=== PATIENT | female | born 1940 | race Caucasian/White ===

== ENCOUNTER → 2017-05-10 15:07 | Outpatient (CLI) | payer MEDICARE, OTHER, SELFPAY ==
[2017-05-10 17:50] LABS: Absolute Lymphocyte Count 2.45 X10^3/ul (0.83-4.51); Absolute Neutrophil Count 4.2 X10^3/uL (2.0-7.7); Basophil# 0.05 X10^3/uL; Basophil% 0.7 % (0-1); Eosinophils% 2.7 % (0-5); Hematocrit 36.1 % (37-47); Hemoglobin 11.8 g/dl (12.0-15.0); Lymphocyte # 2.45 X10^3/ul (4.0); Lymphocyte % 32.5 % (19-41); Mean Corp Hgb Conc 32.7 g/gl (32-36); Mean Corpuscular Hgb 29.5 pg (27.0-32.0); Mean Corpuscular Volume 90.3 fL (81-99); Mean Platelet Vol. 11.6 fl (6.2-12.0); Monocyte# 0.62 X10^3/uL; Monocyte% 8.2 % (0-10); Neutrophil % 55.6 % (47-70); Platelet Count 222 K/mm3 (150-450); RBC Distribution Width CV 15.7 % (11.6-14.6); RBC Distribution Width SD 51.4 fl (35.1-43.9); White Blood Count 7.5 K/mm3 (4.4-11.0)
[2017-05-10 17:54] LABS: POSITIVE COUNT NO; POSITIVE DIFFERENTIAL NO; POSITIVE MORPHOLOGY NO
[2017-05-10 17:56] LABS: ALB/GLOB Ratio 0.9 RATIO (0.9-2.4); AST(SGOT) 15 U/L (15-37); Alanine Aminotransfer ALT/SGPT 23 U/L (13-56); Albumin, Serum 3.5 g/dL (3.2-5.0); Alkaline Phosphatase 65 U/L (45-117); Anion Gap 5 (5-15); BUN 22 mg/dL (7-18); BUN/Creat Ratio 22.4 RATIO (10-20); Calcium,Total 8.6 mg/dL (8.5-10.1); Chloride 106 mmol/L (98-107); Creatinine, Serum 0.98 mg/dL (0.55-1.02); EST Glomerular Filtration Rate 59 mL/min (>60); Est Glom Filt Rate - Afr Amer 71 mL/min (>60); Globulin 3.8 g/dL (2.2-4.2); Glucose 173 mg/dL (74-106); Potassium 4.4 mmol/L (3.5-5.1); Protein, Total 7.3 g/dL (6.4-8.2); Sodium Level 141 mmol/L (136-145)
[2017-05-14 12:07] LABS: SJOGREN'S Anti-SS-A test < 0.2 AI (0.0-0.9); SJOGREN'S Anti-SS-B test < 0.2 AI (0.0-0.9)
[2017-05-14 13:50] LABS: ANTINUCLEAR ANTIBODIES DIRECT Negative (Negative)
== END ==
PROVIDERS: Family Provider Family Medicine; PCP Family Medicine; Visit Provider Internal Medicine Rheumatology
DX: M06.4 Inflammatory polyarthropathy (principal); M79.7 Fibromyalgia; M18.0 Bilateral primary osteoarthritis of first carpometacarpal joints; M17.0 Bilateral primary osteoarthritis of knee; M81.0 Age-related osteoporosis without current pathological fracture; I10 Essential (primary) hypertension; E11.9 Type 2 diabetes mellitus without complications; F32.89 Other specified depressive episodes; Z79.899 Other long term (current) drug therapy
CPT/HCPCS: 36415; 80053; 85025; 86038; 86235

== ENCOUNTER → 2017-07-11 11:56 | Outpatient (CLI) | payer MEDICARE, OTHER, SELFPAY | PROVIDERS: Visit Provider Obstetrics & Gynecology | DX: N39.0 Urinary tract infection, site not specified (principal) | CPT/HCPCS: 87086; 87088 ==

== ENCOUNTER → 2017-07-17 10:38 | Outpatient (CLI) | payer MEDICARE, OTHER, SELFPAY | PROVIDERS: Visit Provider Obstetrics & Gynecology | DX: R30.0 Dysuria (principal) | CPT/HCPCS: 87086; 87088 ==

== ENCOUNTER → 2017-08-10 10:10 | Outpatient (CLI) | payer MEDICARE, OTHER, SELFPAY ==
[2017-08-10 12:35] LABS: Absolute Lymphocyte Count 2.45 X10^3/ul (0.83-4.51); Absolute Neutrophil Count 5.8 X10^3/uL (2.0-7.7); Basophil# 0.05 X10^3/uL; Basophil% 0.5 % (0-1); Eosinophil# 0.24 X10^3/uL; Eosinophils% 2.6 % (0-5); Hematocrit 37.4 % (37-47); Hemoglobin 12.1 g/dl (12.0-15.0); Lymphocyte # 2.45 X10^3/ul (4.0); Lymphocyte % 26.5 % (19-41); Mean Corp Hgb Conc 32.4 g/gl (32-36); Mean Corpuscular Hgb 28.5 pg (27.0-32.0); Mean Corpuscular Volume 88.2 fL (81-99); Mean Platelet Vol. 10.6 fl (6.2-12.0); Monocyte# 0.74 X10^3/uL; Neutrophil # 5.75 X10^3/uL (2.7-7.7); Neutrophil % 62.2 % (47-70); Platelet Count 255 K/mm3 (150-450); RBC Distribution Width SD 47.5 fl (35.1-43.9); Red Blood Count 4.24 M/mm3 (4.2-5.4); White Blood Count 9.3 K/mm3 (4.4-11.0)
[2017-08-10 12:40] LABS: POSITIVE COUNT NO; POSITIVE DIFFERENTIAL NO; POSITIVE MORPHOLOGY NO
[2017-08-10 12:55] LABS: ALB/GLOB Ratio 0.9 RATIO (0.9-2.4); AST(SGOT) 13 U/L (15-37); Alanine Aminotransfer ALT/SGPT 17 U/L (13-56); Albumin, Serum 3.4 g/dL (3.2-5.0); Alkaline Phosphatase 66 U/L (45-117); Anion Gap 8 (5-15); BUN 22 mg/dL (7-18); BUN/Creat Ratio 27.6 RATIO (10-20); Calcium,Total 8.6 mg/dL (8.5-10.1); Chloride 107 mmol/L (98-107); EST Glomerular Filtration Rate 75 mL/min (>60); Est Glom Filt Rate - Afr Amer 90 mL/min (>60); Globulin 3.9 g/dL (2.2-4.2); Glucose 134 mg/dL (74-106); Potassium 4.1 mmol/L (3.5-5.1); Protein, Total 7.3 g/dL (6.4-8.2); Sodium Level 139 mmol/L (136-145)
== END ==
PROVIDERS: Family Provider Family Medicine; PCP Family Medicine; Visit Provider Internal Medicine Rheumatology
DX: M06.4 Inflammatory polyarthropathy (principal); M79.7 Fibromyalgia; M18.0 Bilateral primary osteoarthritis of first carpometacarpal joints; M17.0 Bilateral primary osteoarthritis of knee; Z79.899 Other long term (current) drug therapy
CPT/HCPCS: 36415; 80053; 85025

== ENCOUNTER 2017-09-10 16:22 | Emergency (ER) | payer MEDICARE, OTHER, SELFPAY ==
[2017-09-10 16:23] VITALS: BP 198/108; PULSE 86; RESP 24; TEMP 36.5; O2SAT 100; BMI 44.8
--- NOTE | 2017-09-10 16:32 | RAD_ITS ---
STUDY: X-RAY - LEFT WRIST REASON FOR EXAM: Female, 77 years old. Fall, pain. TECHNIQUE: 3 view(s) of the wrist were obtained. COMPARISON: None. FINDINGS: The seen on the oblique view is apparent nondisplaced intra-articular fracture through the base of the radial styloid. Normal visualized distal ulna. There is degenerative narrowing of the lateral radiocarpal articulation. Normal distal radioulnar articulation. There is distal periarticular spurring of the trapezium, otherwise normal carpal bones. Mild degenerative arthroses of the articulations, and the distal scaphoid and trapezium/trapezoid. There is degenerative arthrosis of the carpometacarpal articulation of the thumb. Normal second through fifth carpometacarpal articulations. Normal visualized metacarpal bones. There is dorsal lateral soft tissue swelling at the wrist. RAD/Wrist min 3 Views IMPRESSION: 1. Nondisplaced fracture through the radial styloid, accompanied by soft tissue swelling. 2. Degenerative changes in the lateral aspect of the wrist, as noted. Electronically Signed: Satnam Dowell MD at 18:08 EDT , Service support ,
--- NOTE | 2017-09-10 16:34 | ED.VISSUMM ---
- ER Visit Summary Date of Service: 09/10/17 Chief Complaint: Wrist pain History of Present Illness: The patient is a 77 F with left wrist pain. The patient had a mechanical fall in her driveway. No other injuries or complaints. She did not hit her head or neck. Did not lose consciousness. Denies any head or neck pain. She only has pain in her left wrist. Worse with movement. No weakness or numbness. She did note some bruising. Otherwise skin unremarkable. No other pain or injuries. Physical Examination: Afebrile and vital signs unremarkable except for a blood pressure of 198/108. She is alert and oriented. No acute distress. Head and neck are grossly atraumatic. Left wrist diffusely tender to palpation. No obvious deformity. Ecchymosis noted. Hand nontender and atraumatic. Elbow, shoulder, clavicle nontender. The remainder of her exam is unremarkable and atraumatic. Test Results: Left wrist x-rays pending. Emergency Department Course and Treatment: Patient already has an ice pack. She was treated with [place] while awaiting results. Patient has a nondisplaced radial styloid fracture. She will be placed in a volar Ortho-Glass splint. Follow-up with Dr. Le of orthopedics. Return for any new or worsening issues. Follow-up with primary care for blood pressure checks. Treatment Plan: As above Disposition: Discharged Impression: 1. Left radial styloid fracture 2. Hypertension This note was generated with [employer] dictation software. It may contain incorrect words, spelling, and punctuation that were not noted in review of the chart prior to signing ED Disposition - Plan for ED Patient: Chief Complaint: Fall Referrals: Jules Douglass DO [Primary Care Provider] -
[2017-09-10] MEDS: HYDROcodone Bitartrate/Apap 5/325 Tablet PO (16:43)
--- NOTE | 2017-09-10 18:12 | DCINST.ED_ITS ---
ED Disposition - Plan for ED Patient: Chief Complaint: Fall Instructions: ED Fx Wrist General Prescriptions: Hydrocodone Bitart/Apap 5-325 [[place] 5MG-325MG] 1 tab PO Q6H PRN PRN 3 Days #10 tab PRN Reason: Pain Referrals: Jules Douglass DO [Primary Care Provider] - David Le MD [STAFF PHYSICIAN] -
[2017-09-10 18:23] VITALS: RESP 16
== END 2017-09-10 18:23 | disposition home or self-care (01) ==
PROVIDERS: Emergency Provider Emergency Medicine; Family Provider Family Medicine; PCP Family Medicine
DX: S52.515A Nondisplaced fracture of left radial styloid process, initial encounter for closed fracture (principal); W01.0XXA Fall on same level from slipping, tripping and stumbling without subsequent striking against object, initial encounter; Y93.01 Activity, walking, marching and hiking; Y92.008 Other place in unspecified non-institutional (private) residence as the place of occurrence of the external cause; I10 Essential (primary) hypertension; E11.9 Type 2 diabetes mellitus without complications; Z79.84 Long term (current) use of oral hypoglycemic drugs; Z79.899 Other long term (current) drug therapy
CPT/HCPCS: 29125; 73110; 99283

== ENCOUNTER → 2018-02-13 11:34 | Outpatient (CLI) | payer MEDICARE, OTHER, SELFPAY ==
[2018-02-13 14:04] LABS: Erythrocyte Sedimentation Rate 46 mm/hr (0-30)
[2018-02-13 14:26] LABS: Rheumatoid Factor < 10.0 IU/mL (<15)
[2018-02-13 14:59] LABS: HIV - WCH Non-Reactive (Nonreactive); Vitamin B12 959 pg/mL (211-911)
[2018-02-14 12:07] LABS: RNP Ab <0.2 AI (0.0-0.9); Smith Ab <0.2 AI (0.0-0.9)
[2018-02-14 15:08] LABS: ANTINUCLEAR ANTIBODIES DIRECT Negative (Negative)
[2018-02-15 16:34] LABS: Albumin 3.5 g/dL (2.9-4.4); Alpha-1-Globulins 0.2 g/dL (0.0-0.4); Alpha-2-Globulins 1.1 g/dL (0.4-1.0); Immunoglobulin A 161 mg/dL (64-422); Immunoglobulin G 982 mg/dL (700-1600); Immunoglobulin M 27 mg/dL (26-217); PROEL- TOTAL PROTEIN 7.1 g/dL (6.0-8.5)
[2018-02-16 09:20] LABS: ARSENIC (TOTAL), URINE 14 ug/L (0-50); Hep C Antibodies <0.1 s/co ratio (0.0-0.9)
--- OUTSIDE RECORDS SUMMARY | 2018-04-10 20:37 | XMS RPT_ITS ---
:1940 Author Organization OHIP Support Name Relationship Address Phone DORINDA YEPEZBERLY Unavailable [address] + [address] [place] [address] R Unavailable Unavailable Unavailable CAMBPELL, KERRY Unavailable [address] [place] [address] R Unavailable Unavailable Unavailable CAMBPELL, KERRY Unavailable [address] + [place] [address] R Unavailable Unavailable Unavailable CAMBPELL, KERRY Unavailable [address] + [place] [address] R Unavailable Unavailable Unavailable CAMBPELL, KERRY Unavailable [address] + [place] [address] R Unavailable Unavailable Unavailable CAMBPELL, KERRY Unavailable [address] + [place] [address] R Unavailable Unavailable Unavailable CAMBPELL, KERRY Unavailable [address] + [place] [address] R Unavailable Unavailable Unavailable CAMBPELL, KERRY Unavailable [address] + [place] [address] R Unavailable Unavailable Unavailable CAMBPELL, KERRY Unavailable [address] + [place] [address] R Unavailable Unavailable Unavailable CAMBPELL, KERRY Unavailable [address] + [place] [address] R Unavailable Unavailable Unavailable CAMBPELL, KERRY Unavailable [address] + [place] [address] R Unavailable Unavailable Unavailable Care Team Providers Name Role Phone Jaguar Flores Admitting Unavailable Jaguar Flores Attending Unavailable Tam Menendez Primary Care Unavailable Ulises Brasher Admitting Unavailable Ulises Brasher Attending Unavailable Tam Menendez Primary Care Unavailable Evonne, Jules Primary Care Unavailable Smith Brown Attending Unavailable Vellanki, Nessa Attending Unavailable Vellanki, Nessa Referring Unavailable Evonne, Jules Primary Care Unavailable Shirley Childers Attending Unavailable Shirley Childers Attending Unavailable Vellanki, Nessa Attending Unavailable Vellanki, Nessa Referring Unavailable Evonne, Jules Primary Care Unavailable Evonne, Jules Primary Care Unavailable Kye Vaz Attending Unavailable Nurse, Surgery Attending Unavailable Evonne, Jules Referring Unavailable Evonne, Jules Attending Unavailable Evonne, Jules Referring Unavailable Evonne, Jules Primary Care Unavailable Víctor, Leonid Dunbar Attending Unavailable Víctor, Leonid Dunbar Referring Unavailable Evonne, Jules Primary Care Unavailable Dave Lawrence Attending Unavailable Bavabner, Dave Referring Unavailable Evonne, Jules Primary Care Unavailable Víctor, Leonid Dunbar Attending Unavailable Víctor, Leonid Dunbar Referring Unavailable Evonne, Jules Primary Care Unavailable Evonne, Jules Consulting Unavailable PROBLEMS PROBLEMS DATE TYPE CONDITION / CODE ATTENDING STATUS SOURCE 02/13/2018 Unknown G62.9 - Dave Lawrence Active [facility] Polyneuropathy, Community unspecified / Hospital G62.9(ICD-10) Repository 02/13/2018 Unknown R53.1 - Weakness / Dave Lawrence Active [facility] R53.1(ICD-10) [facility] Hospital Repository 02/13/2018 Unknown R53.83 - Other Dave Lawrence Active [facility] fatigue / Community R53.83(ICD-10) Hospital Repository 02/11/2018 Unknown C64.9 - Malignant Leonid Renee Active [facility] neoplasm of [facility] unspecified kidney, Hospital except renal pelvis / Repository C64.9(ICD-10) 09/10/2017 Unknown S62.102A - Fracture Milind Kye Active [facility] of unspecified carpal Community bone, left wrist, Hospital initial encounter for Repository closed fracture / S62.102A(ICD-10) 08/10/2017 Unknown 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, 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 / Community M06.4(ICD-10) Hospital Repository 08/10/2017 Unknown Z79.899 - Other long Ceasarlanroseann Nessa Active [facility] term (current) drug Community therapy / Hospital Z79.899(ICD-10) Repository 08/10/2017 Unknown M79.7 - Fibromyalgia Nessa Caro Active [facility] / M79.7(ICD-10) [facility] Hospital Repository 08/10/2017 Unknown M18.12 - Unilateral Vellanroseann, Nessa Active [facility] primary Community osteoarthritis of Hospital first carpometacarpal Repository joint, left hand / M18.12(ICD-10) 08/10/2017 Unknown M18.11 - Unilateral Vellanki, Nessa Active [facility] primary Community osteoarthritis of Hospital first carpometacarpal Repository joint, right hand / M18.11(ICD-10) 08/10/2017 Unknown 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, 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, Community unspecified / Hospital M15.9(ICD-10) Repository 08/10/2017 Unknown 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, 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 / M17.0(ICD-10) Repository 07/17/2017 Unknown R30.0 - Dysuria / Shirley Childers Active [facility] R30.0(ICD-10) [facility] Hospital Repository 07/11/2017 Unknown N39.0 - Urinary tract ShrShirley rodriguez Active [facility] infection, site not Community specified / Hospital N39.0(ICD-10) Repository 03/20/2017 Unknown S20.229A - Contusion Smith Brown Active [facility] of unspecified back Community wall of thorax, Hospital initial encounter / Repository S20.229A(ICD-10) PROCEDURES PROCEDURES No Procedure Records FoundRESULTS RESULTS HEMOGLOBIN A1C Collected: 02/19/2018 Status: F Source: [place] 9:25 AM [facility] REPOSITORY TYPE CODE TESTS RESULT OUT OF RANGE REFERENCE UNITS LAB L501.9985 4.2-6.3 % High HGB A1C 7.6 Performed By: #### L501.9985 #### [facility] [address] [place], [place], [id number] LIPID PROFILE Collected: 02/19/2018 Status: F Source: [place] 9:25 AM [facility] REPOSITORY Order Comment: NOT FASTING TYPE CODE TESTS RESULT OUT OF RANGE REFERENCE UNITS LAB L501.4900 200 mg/dL High CHOL 213 Result Comment: <200 mg/dL Desirable 200-240 mg/dL Borderline >240 mg/dL High Risk LAB L501.5000 mg/dL Normal TRIG 137 Result Comment: The drugs N-Acetylcysteine and Metamizole may falsely depress this assay. Serum Triglycerides Reference Interval Normal <150 mg/dL Borderline high 150 - 199 mg/dL High 200 - 499 mg/dL Very High > or = 500 mg/dL LAB L501.6400 mg/dL Normal HDL 71 Result Comment: The drugs N-Acetylcysteine and Metamizole may falsely depress this assay. Reference Range HDL <40 mg/dL Low HDL Cholesterol HDL >or= 60 mg/dL High HDL Cholesterol LAB L501.6500 0-130 mg/dL Normal LDL 115 LAB L501.6600 5-40 mg/dL Normal VLDL 27 Performed By: #### L500.4100 #### [facility] [address] [place], [address] MICROALB:CREAT Collected: 02/19/2018 Status: F Source: [place] RATIO,RANDOM UR 9:25 AM [facility] REPOSITORY TYPE CODE TESTS RESULT OUT OF RANGE REFERENCE UNITS LAB L501.1200 NO RANGE EST. mg/dL Normal UR CREAT 196.00 LAB L502.0500 NO RANGE EST. mg/L Normal 42.0 MICROALBUMIN ,UR LAB L502.0600 <30 mg/g CRE mg/g CRE Normal 21.4 MALB:CREAT Performed By: #### L502.0250 #### [facility] [address] [place], [address] CHEST PA AND LATERAL Observed: 02/19/2018 Status: F Source: [place] 8:21 AM [facility] REPOSITORY [facility] Imaging Services [address] [place] [address] Chest PA and Lateral MR#: [id number] Acct: [id number] Name: ARLEEN REDMOND Rep #: [id number] : 1940 F 77 From: Ryder Champagne MD PCP: Jules Douglass DO Status: REG CLI Study: Chest PA and Lateral Date of Exam: 02/19/18 Exam# [id number] Ordering Dr: Leonid Renee MD STUDY: X-RAY CHEST REASON FOR EXAM: Female, 77 years old. History of renal cell carcinoma. TECHNIQUE: PA and lateral views of the chest. COMPARISON: Comparison is made with prior study dated September 26, 2016. FINDINGS: Mild increased markings at the left lung base suggestive of scarring. There is no demonstrated pleural abnormality. Normal size heart. Normal mediastinum and jessica. Normal visualized pulmonary arteries. There is atherosclerotic tortuosity of the aortic arch and descending thoracic aorta. There are diffuse degenerative changes of the visualized thoracic spine. Normal visualized ribs, clavicles, and shoulders. There is no demonstrated abnormality of the visualized soft tissue structures of the upper abdomen. RAD/Chest PA and Lateral IMPRESSION: Mild increased markings at the left lung base suggestive of scarring. Electronically Signed: Ryder Champagne MD at 14:36 EST Tel [phone], Service support , CC: Leonid Renee MD; Jules Douglass DO Professor Of Biostatistics: Signed KIDNEY AND BLADDER Observed: 02/19/2018 Status: F Source: [place] 8:15 AM [facility] Imaging Services [address] [place] [address] Kidney and Bladder MR#: [id number] Acct: [id number] Name: ARLEEN REDMOND Rep #: [id number] : 1940 F 77 From: Ryder Champagne MD PCP: Jules Douglass DO Status: REG CLI Study: Kidney and Bladder Date of Exam: 02/19/18 Exam# [id number] Ordering Dr: Leonid Renee MD STUDY: RENAL ULTRASOUND - COMPLETE REASON FOR EXAM: Female, 77 years old. History of renal cell carcinoma. TECHNIQUE: Ultrasound evaluation of the kidneys was performed with real-time and static steward-scale imaging. COMPARISON: Comparison is made with prior study dated October 03, 2016. FINDINGS: RIGHT KIDNEY: Normal location of the right kidney, which is normal in size. The right kidney measures 11.2 cm x 5.3 cm x 4.9 cm. There is a normal cortex of the right kidney. The renal cortex measures 1.3 cm. There is no right renal mass or cyst. There are no right renal calculi. There is no right hydronephrosis. The patient is status post partial right nephrectomy with lobular changes at the operative site. DISTAL RIGHT URETER: There is non-visualization of the distal right ureter. There is no demonstrated right ureterovesical junction calculus. There is no demonstrated right ureteral jet. LEFT KIDNEY: Normal location of the left kidney, which is normal in size. The left kidney measures 11.5 cm x 3.8 cm x 5.1 cm. There is a normal cortex of the left kidney. The renal cortex measures 1.3 cm. There is no left renal mass or cyst. There are no left renal calculi. There is mild hydronephrosis of the left kidney. DISTAL LEFT URETER: There is non-visualization of the distal left ureter. There is no demonstrated left ureterovesical junction calculus. There is no demonstrated left ureteral jet. BLADDER: The bladder is empty at the time of the examination. US/Kidney and Bladder IMPRESSION: Status post right partial nephrectomy. There has been no change. Mild left hydronephrosis. Electronically Signed: Ryder Champagne MD at 14:50 EST Tel [phone], Service support , CC: Leonid Renee MD; Jules Douglass DO Professor Of Biostatistics: Signed ERYTHROCYTE SED RATE Collected: 02/13/2018 Status: F Source: [place] 11:51 AM [facility] REPOSITORY TYPE CODE TESTS RESULT OUT OF RANGE REFERENCE UNITS LAB L102.0000 0-30 mm/hr High SED RATE 46 Performed By: #### L101.9900 #### [facility] [address] [place], [place], [id number] THYROID STIM HORMONE Collected: 02/13/2018 Status: F Source: [place] (TSH) 11:51 AM [facility] REPOSITORY Order Comment: Is Patient Taking Vitamins or Folic Acid Supplements? N TYPE CODE TESTS RESULT OUT OF RANGE REFERENCE UNITS LAB L501.9520 0.358-3.74 uIU/mL Normal TSH 3.10 Performed By: #### L501.9520, L505.7010, L506.0250 #### [facility] [address] [place], [place], [id number] RHEUMATOID FACTOR Collected: 02/13/2018 Status: F Source: [place] 11:51 AM [facility] REPOSITORY Order Comment: Is Patient Taking Vitamins or Folic Acid Supplements? N TYPE CODE TESTS RESULT OUT OF RANGE REFERENCE UNITS LAB L505.7010 <15 IU/mL Normal RHEUMATOID FAC < 10.0 Performed By: #### L501.9520, L505.7010, L506.0250 #### [facility] [address] [place], [place], [id number] FOLATES, (FOLIC ACID) Collected: 02/13/2018 Status: F Source: [place] 11:51 AM [facility] REPOSITORY Order Comment: Is Patient Taking Vitamins or Folic Acid Supplements? N TYPE CODE TESTS RESULT OUT OF RANGE REFERENCE UNITS LAB L506.0250 3.1-55.4 ng/mL Normal FOLATES 6.70 Performed By: #### L501.9520, L505.7010, L506.0250 #### [facility] [address] [place], [place], [address] VITAMIN B12 Collected: 02/13/2018 Status: F Source: [place] 11:51 AM [facility] REPOSITORY TYPE CODE TESTS RESULT OUT OF REFERENCE UNITS RANGE LAB L503.0105 211-911 pg/mL High Vitamin B12 959 Performed By: #### L503.0105, L3890.6005 #### [facility] [address] [place], [address] HIV - [facility] Collected: 02/13/2018 Status: F Source: [place] 11:51 AM [facility] REPOSITORY TYPE CODE TESTS RESULT OUT OF RANGE REFERENCE UNITS LAB L3890.6005 Nonreactive Normal HIV - [facility] Non-Reactive Performed By: #### L503.0105, L3890.6005 #### [facility] [address] [place], [address] ANTINUCLEAR ANTIBODIES Collected: 02/13/2018 Status: F Source: [place] DIRECT 11:51 AM [facility] REPOSITORY TYPE CODE TESTS RESULT OUT OF RANGE REFERENCE UNITS LAB L3100.5475 Negative Normal Negative BETTY-DIRECT Result Comment: Performed at: [facility] [address] [id number] Counselor Dormitory: Shiv Guallpa PhD, Phone: [phone] Performed By: #### L3100.5475, L3410.1110 #### [facility] (refer to report for specific site) refer to report for address and phone number ANTIEXTRACTABLE NUG AG Collected: 02/13/2018 Status: F Source: [place] 11:51 AM [facility] REPOSITORY TYPE CODE TESTS RESULT OUT OF RANGE REFERENCE UNITS LAB L3410.1200 0.0-0.9 AI Normal KOSHER BUTCHER Ab <0.2 LAB L3410.1300 0.0-0.9 AI Normal LEE Ab <0.2 Performed By: #### L3100.5475, L3410.1110 #### [facility] (refer to report for specific site) refer to report for address and phone number HEPATITIS C ANTIBODIES Collected: 02/13/2018 Status: F Source: [place] 11:51 AM [facility] REPOSITORY Order Comment: Is Patient Fasting? Y TYPE CODE TESTS RESULT OUT OF RANGE REFERENCE UNITS LAB L3100.0650 0.0-0.9 s/co ratio Normal HEP C AB <0.1 Result Comment: Negative: < 0.8 Indeterminate: 0.8 - 0.9 Positive: > 0.9 The CDC recommends that a positive HCV antibody result be followed up with a HCV Nucleic Acid Amplification test (782428). Performed at: [facility] [address] [id number] Counselor Dormitory: Shiv Guallpa PhD, Phone: [phone] Performed at: [facility] [id number] Counselor Dormitory: Yariel Lala MD, Phone: [phone] Performed By: #### L3100.0625, L3100.3425, L3120.0100 #### [facility] (refer to report for specific site) refer to report for address and phone number SARAH + PROTEIN ELECT, Collected: 02/13/2018 Status: F Source: [place] SERUM 11:51 AM [facility] REPOSITORY Order Comment: Is Patient Fasting? Y TYPE CODE TESTS RESULT OUT OF RANGE REFERENCE UNITS LAB L3100.3500 6.0-8.5 g/dL Normal PROTEIN,TOTAL 7.1 LAB L3200.4525 152-0980 mg/dL Normal IMMUNO G 982 LAB L3200.1400 64-422 mg/dL Normal IMMUNO A 161 LAB L3200.1500 26-217 mg/dL Normal IMMUNOGL M 27 LAB L3200.1510 2.9-4.4 g/dL Normal ALBUMIN 3.5 LAB L3200.1520 0.0-0.4 g/dL Normal SPNNQ-1-ZIXO 0.2 LAB L3200.1530 0.4-1.0 g/dL High JXCGK-0-BPTY 1.1 LAB L3200.1540 0.7-1.3 g/dL Normal BETA GLOBULIN 1.3 LAB L3200.1550 0.4-1.8 g/dL Normal GAMMA GLOBULIN 1.0 LAB L3200.1560 Normal M-SPIKE Result Comment: None Detected LAB L3200.1570 2.2-3.9 g/dL Normal GLOBULIN, TOTAL 3.6 LAB L3200.1580 0.7-1.7 A/G Normal RATIO 1.0 LAB L3200.1590 . SARAH Normal RESULT,S Comment Result Comment: No monoclonality detected. LAB L3200.1594 . Normal NOTE: Comment Result Comment: Protein electrophoresis scan will follow via computer, mail, or travel clerk delivery. Performed By: #### L3100.0625, L3100.3425, L3120.0100 #### [facility] (refer to report for specific site) refer to report for address and phone number HEAVY METALS, URINE Collected: 02/13/2018 Status: F Source: [place] 11:51 AM [facility] REPOSITORY Order Comment: Is Patient Fasting? Y TYPE CODE TESTS RESULT OUT OF RANGE REFERENCE UNITS LAB L3120.0200 0.30-3.00 g/L Normal 0.80 CREATININE,U R Result Comment: Detection Limit = 0.10 LAB L3120.0300 0-50 ug/L Normal ARSENIC TOTAL,U 14 Result Comment: Detection Limit = 10 LAB L3120.0400 Normal ARSENIC INORG,U Result Comment: None Detected Environmental Exposure: 0-19 Occupational Exposure: 35 Detection Limit = 10 LAB L3120.0500 . ARSENIC:CREAT,U Test Normal not performed LAB L3120.0600 . ARSENIC,UR 24HR Test Normal not performed LAB L3120.0700 LEAD, URINE Normal Result Comment: None Detected Detection Limit = 1 LAB L3120.0800 . Normal Test not LEAD:CRE URINE performed LAB L3120.0900 . Normal LEAD, Test not UR 24 HR performed LAB L3120.1000 Normal MERCURY, URINE Result Comment: Detection Limit = 1 LAB L3120.1100 . MERCURY:CREAT Test Normal not performed LAB L3120.1200 . MERCURY,UR 24HR Test Normal not performed Performed By: #### L3100.0625, L3100.3425, L3120.0100 #### [facility] (refer to report for specific site) refer to report for address and phone number EMERGENCY DEPARTMENT Observed: 09/11/2017 Status: F Source: [place] SUMMARY 12:17 AM [facility] REPOSITORY [facility] Medical Records Department [address] [place] [address] Emergency Department Summary 09/10/17 1634 MR#: [id number] Acct: [id number] Name: ARLEEN REDMOND Rep #: [id number] : 1940 77 From: Kye Vaz MD PCP: Jules Douglass DO Status: DEP ER - ER Visit Summary Date of Service: 09/10/17 Chief Complaint: Wrist pain History of Present Illness: The patient is a 77 F with left wrist pain. The patient had a mechanical fall in her driveway. No other injuries or complaints. She did not hit her head or neck. Did not lose consciousness. Denies any head or neck pain. She only has pain in her left wrist. Worse with movement. No weakness or numbness. She did note some bruising. Otherwise skin unremarkable. No other pain or injuries. Physical Examination: Afebrile and vital signs unremarkable except for a blood pressure of 198/108. She is alert and oriented. No acute distress. Head and neck are grossly atraumatic. Left wrist diffusely tender to palpation. No obvious deformity. Ecchymosis noted. Hand nontender and atraumatic. Elbow, shoulder, clavicle nontender. The remainder of her exam is unremarkable and atraumatic. Test Results: Left wrist x-rays pending. Emergency Department Course and Treatment: Patient already has an ice pack. She was treated with [place] while awaiting results. Patient has a nondisplaced radial styloid fracture. She will be placed in a volar Ortho-Glass splint. Follow-up with Dr. Le of orthopedics. Return for any new or worsening issues. Follow-up with primary care for blood pressure checks. Treatment Plan: As above Disposition: Discharged Impression: 1. Left radial styloid fracture 2. Hypertension This note was generated with [employer] dictation software. It may contain incorrect words, spelling, and punctuation that were not noted in review of the chart prior to signing ED Disposition - Plan for ED Patient: Chief Complaint: Fall Referrals: Jules Douglass, DO [Primary Care Provider] - What to do if you have Problems For any increased pain, shortness of breath, bleeding, nausea or vomiting, chest pain, or any unexpected problems, contact your Primary Care Provider. Call [facility] ([phone]) or report to the closest Emergency Room. Call 911 if necessary. 09/11/17 0017 <Electronically signed by Kye Vaz MD> Date Kye Vaz MD Cosigner Signature (If Indicated): Date CC: Jules Douglass DO DISCHARGE INSTRUCTION Observed: 09/11/2017 Status: F Source: [place] 12:17 AM [facility] REPOSITORY [facility] Medical Records Department [address] [place] [address] Discharge Instruction 09/10/17 1811 MR#: [id number] Acct: [id number] Name: ARLEEN REDMOND Rep #: [id number] : 1940 77 From: Kye Vaz MD PCP: Jules Douglass DO Status: DEP ER ED Disposition - Plan for ED Patient: Chief Complaint: Fall Instructions: ED Fx Wrist General Prescriptions: Hydrocodone Bitart/Apap 5-325 [[place] 5MG-325MG] 1 tab PO Q6H PRN PRN 3 Days #10 tab PRN Reason: Pain Referrals: Jules Douglass DO [Primary Care Provider] - David Le MD [STAFF PHYSICIAN] - What to do if you have Problems For any increased pain, shortness of breath, bleeding, nausea or vomiting, chest pain, or any unexpected problems, contact your Primary Care Provider. Call [facility] ([phone]) or report to the closest Emergency Room. Call 911 if necessary. 09/11/17 0017 <Electronically signed by Kye Vaz MD> Date Kye Vaz MD Cosigner Signature (If Indicated): Date CC: Jules Douglass DO WRIST MIN 3 VIEWS Observed: 09/10/2017 Status: F Source: [place] 4:33 PM [facility] REPOSITORY [facility] Imaging Services [address] [address] Wrist min 3 Views MR#: [id number] Acct: [id number] Name: ARLEEN REDMOND Rep #: [id number] : 1940 F 77 From: Petr Dowell MD PCP: Jules Douglass DO Status: REG ER Study: Wrist min 3 Views Date of Exam: 09/10/17 Exam# [id number] Ordering Dr: Kye Vaz MD STUDY: X-RAY - LEFT WRIST REASON FOR EXAM: Female, 77 years old. Fall, pain. TECHNIQUE: 3 view(s) of the wrist were obtained. COMPARISON: None. FINDINGS: The seen on the oblique view is apparent nondisplaced intra-articular fracture through the base of the radial styloid. Normal visualized distal ulna. There is degenerative narrowing of the lateral radiocarpal articulation. Normal distal radioulnar articulation. There is distal periarticular spurring of the trapezium, otherwise normal carpal bones. Mild degenerative arthroses of the articulations, and the distal scaphoid and trapezium/trapezoid. There is degenerative arthrosis of the carpometacarpal articulation of the thumb. Normal second through fifth carpometacarpal articulations. Normal visualized metacarpal bones. There is dorsal lateral soft tissue swelling at the wrist. RAD/Wrist min 3 Views IMPRESSION: 1. Nondisplaced fracture through the radial styloid, accompanied by soft tissue swelling. 2. Degenerative changes in the lateral aspect of the wrist, as noted. Electronically Signed: Satnam Dowell MD at 18:08 EDT , Service support , CC: Kye Vaz MD; Jules Douglass DO Professor Of Biostatistics: Signed CBC W/DIFF, AUTOMATED Collected: 08/10/2017 Status: F Source: [place] 10:18 AM [facility] REPOSITORY TYPE CODE TESTS RESULT OUT OF RANGE REFERENCE UNITS LAB L100.1000 4.4-11.0 K/mm3 Normal WBC 9.3 LAB L100.1200 4.2-5.4 M/mm3 Normal RBC 4.24 LAB L100.1300 12.0-15.0 g/dl Normal HGB 12.1 LAB L100.1400 37-47 % Normal HCT 37.4 LAB L100.1500 81-99 fL Normal MCV 88.2 LAB L100.1600 27.0-32.0 pg Normal MCH 28.5 LAB L100.1700 32-36 g/gl Normal MCHC 32.4 LAB L100.1810 11.6-14.6 % High RDW CV 15.0 LAB L100.1820 35.1-43.9 fl High RDW SD 47.5 LAB L100.1900 150-450 K/mm3 Normal PLT 255 LAB L100.2000 6.2-12.0 fl Normal MPV 10.6 LAB L100.2100 47-70 % Normal NEUT% 62.2 LAB L100.2200 19-41 % Normal LY% 26.5 LAB L100.2300 0-10 % Normal MONO% 8.0 LAB L100.2400 0-5 % Normal EO% 2.6 LAB L100.2500 0-1 % Normal BASO% 0.5 LAB L100.2550 0.0-0.9 % Normal IM GRAN % 0.200 Result Comment: IG% - Immature Granulocytes (promyelocytes, myelocytes and metamyelocytes) > 1% indicates that a LEFT SHIFT is Present. LAB L100.2620 2.0-7.7 X10 3/uL Normal Absolute Neut 5.8 LAB L100.2720 0.83-4.51 X10 3/ul Normal Absolute Lymph 2.45 Performed By: #### L100.0100 #### [facility] [address] [facility] [place], [place], [address] COMPREHENSIVE METABOLIC Collected: 08/10/2017 Status: F Source: [facility] 10:18 AM [facility] REPOSITORY TYPE CODE TESTS RESULT OUT OF RANGE REFERENCE UNITS LAB L501.0100 74-106 mg/dL High GLU 134 Result Comment: Fasting Glucose result greater than or equal to 126 mg/dL suggests DIABETES MELLITUS per A.D.A. criteria. Please note revised GLUCOSE reference range effective 2017. LAB L501.1000 7-18 mg/dL High BUN 22 LAB L501.1100 0.55-1.02 mg/dL Normal CREAT,SERUM 0.80 Result Comment: The validity of the calculated GFR AND GFRAA in patients over 70 years has not been determined. Clinical correlation is essential. LAB L501.1110 >60 mL/min Normal EST GFR 75 Result Comment: Non- GFR Calc LAB L501.1115 >60 mL/min Normal EST GFR - AA 90 Result Comment: GFR Calc LAB L501.1300 10-20 RATIO High BUN/CRE 27.6 LAB L501.1500 6.4-8.2 g/dL T Normal PROT 7.3 LAB L501.1800 3.2-5.0 g/dL Normal ALB 3.4 LAB L501.1950 2.2-4.2 g/dL Normal GLOB 3.9 LAB L501.2000 0.9-2.4 RATIO Normal A/G 0.9 LAB L501.2200 8.5-10.1 mg/dL CA Normal 8.6 LAB L501.4100 15-37 U/L Low AST 13 LAB L501.4305 45-117 U/L Normal ALK P 66 LAB L501.4405 13-56 U/L Normal ALT 17 LAB L501.4600 0.20-1.00 mg/dL T Normal BILI 0.20 LAB L501.5300 136-145 mmol/L NA Normal 139 LAB L501.5600 3.5-5.1 mmol/L K Normal 4.1 LAB L501.5900 98-107 mmol/L CL Normal 107 LAB L501.6100 21.0-32.0 mmol/L Normal CO2 24.0 LAB L501.6200 5-15 Normal GAP 8 Performed By: #### L500.4050 #### [facility] [address] [place], [address] Observed: 07/17/2017 Status: F Source: [place] CULTURE, URINE 10:35 AM [facility] REPOSITORY Urine Culture ORGANISM 1: Mixed Gram Pos AND Gram Neg Org [place] Count 80,000-100,000 MIX CULTURE Mixed contaminants. Submit a new specimen if indicated. Performed By: #### M100.0650 #### [facility] [address] [place], [address] Observed: 07/11/2017 Status: F Source: [place] CULTURE, URINE 10:45 AM [facility] REPOSITORY Urine Culture ORGANISM 1: Mixed Gram Pos AND Gram Neg Org [place] Count >100,000 MIX CULTURE Mixed contaminants. Submit a new specimen if indicated. Performed By: #### M100.0650 #### [facility] [address] [place], [place], [address] CBC W/DIFF, AUTOMATED Collected: 05/10/2017 Status: F Source: [place] 3:12 PM [facility] REPOSITORY TYPE CODE TESTS RESULT OUT OF RANGE REFERENCE UNITS LAB L100.1000 4.4-11.0 K/mm3 Normal WBC 7.5 LAB L100.1200 4.2-5.4 M/mm3 Low RBC 4.00 LAB L100.1300 12.0-15.0 g/dl Low HGB 11.8 LAB L100.1400 37-47 % Low HCT 36.1 LAB L100.1500 81-99 fL Normal MCV 90.3 LAB L100.1600 27.0-32.0 pg Normal MCH 29.5 LAB L100.1700 32-36 g/gl Normal MCHC 32.7 LAB L100.1810 11.6-14.6 % High RDW CV 15.7 LAB L100.1820 35.1-43.9 fl High RDW SD 51.4 LAB L100.1900 150-450 K/mm3 Normal PLT 222 LAB L100.2000 6.2-12.0 fl Normal MPV 11.6 LAB L100.2100 47-70 % Normal NEUT% 55.6 LAB L100.2200 19-41 % Normal LY% 32.5 LAB L100.2300 0-10 % Normal MONO% 8.2 LAB L100.2400 0-5 % Normal EO% 2.7 LAB L100.2500 0-1 % Normal BASO% 0.7 LAB L100.2550 0.0-0.9 % Normal IM GRAN % 0.300 Result Comment: IG% - Immature Granulocytes (promyelocytes, myelocytes and metamyelocytes) > 1% indicates that a LEFT SHIFT is Present. LAB L100.2620 2.0-7.7 X10 3/uL Normal Absolute Neut 4.2 LAB L100.2720 0.83-4.51 X10 3/ul Normal Absolute Lymph 2.45 Performed By: #### L100.0100 #### [facility] [address] [place], [address] COMPREHENSIVE METABOLIC Collected: 05/10/2017 Status: F Source: [place] HAINES 3:12 PM [facility] REPOSITORY TYPE CODE TESTS RESULT OUT OF RANGE REFERENCE UNITS LAB L501.0100 74-106 mg/dL High GLU 173 Result Comment: Fasting Glucose result greater than or equal to 126 mg/dL suggests DIABETES MELLITUS per A.D.A. criteria. Please note revised GLUCOSE reference range effective 2017. LAB L501.1000 7-18 mg/dL High BUN 22 LAB L501.1100 0.55-1.02 mg/dL Normal CREAT,SERUM 0.98 Result Comment: The validity of the calculated GFR AND GFRAA in patients over 70 years has not been determined. Clinical correlation is essential. LAB L501.1110 >60 mL/min Low EST GFR 59 Result Comment: Non- GFR Calc LAB L501.1115 >60 mL/min Normal EST GFR - AA 71 Result Comment: GFR Calc LAB L501.1300 10-20 RATIO High BUN/CRE 22.4 LAB L501.1500 6.4-8.2 g/dL T Normal PROT 7.3 LAB L501.1800 3.2-5.0 g/dL Normal ALB 3.5 LAB L501.1950 2.2-4.2 g/dL Normal GLOB 3.8 LAB L501.2000 0.9-2.4 RATIO Normal A/G 0.9 LAB L501.2200 8.5-10.1 mg/dL CA Normal 8.6 LAB L501.4100 15-37 U/L Normal AST 15 LAB L501.4305 45-117 U/L Normal ALK P 65 LAB L501.4405 13-56 U/L Normal ALT 23 Result Comment: Please note revised ALT reference range effective 2017. LAB L501.4600 0.20-1.00 mg/dL Normal T BILI 0.30 LAB L501.5300 136-145 mmol/L Normal NA 141 LAB L501.5600 3.5-5.1 mmol/L Normal K 4.4 LAB L501.5900 98-107 mmol/L Normal CL 106 LAB L501.6100 21.0-32.0 mmol/L Normal CO2 30.0 LAB L501.6200 5-15 Normal GAP 5 Performed By: #### L500.4050 #### [facility] [address] [place], [address] ANTINUCLEAR ANTIBODIES Collected: 05/10/2017 Status: F Source: [place] DIRECT 3:12 PM [facility] REPOSITORY TYPE CODE TESTS RESULT OUT OF RANGE REFERENCE UNITS LAB L3100.5475 Negative Normal Negative BETTY-DIRECT Result Comment: Performed at: - [facility] [id number] Counselor Dormitory: Shiv Guallpa PhD, Phone: [phone] Performed By: #### L3100.5475, L3100.9100 #### [facility] (refer to report for specific site) refer to report for address and phone number SJOGREN'S ANTIBODIES Collected: 05/10/2017 Status: F Source: [place] A/B 3:12 PM [facility] REPOSITORY TYPE CODE TESTS RESULT OUT OF RANGE REFERENCE UNITS LAB L3100.9200 0.0-0.9 AI Normal Anti-SS-A < 0.2 LAB L3100.9300 0.0-0.9 AI Normal Anti-SS-B < 0.2 Performed By: #### L3100.5475, L3100.9100 #### [facility] (refer to report for specific site) refer to report for address and phone number DISCHARGE INSTRUCTION Observed: 03/20/2017 Status: F Source: [place] 6:57 PM [facility] REPOSITORY [facility] Medical Records Department [address] [place] [address] Discharge Instruction 03/20/17 1856 MR#: [id number] Acct: [id number] Name: ARLEEN REDMOND Rep #: [id number] : 1940 76 From: Smith Brown MD PCP: Jules Douglass DO Status: REG ER ED Disposition - Plan for ED Patient: Disposition: Home or Assisted Living Chief Complaint: Back Instructions: ED Contusion Back Prescriptions: Hydrocodone Bitart/Apap 5-325 [[place] 5/325] 1 - 2 tab PO Q6H PRN PRN #8 tab PRN Reason: Pain Referrals: Jules Douglass DO [Primary Care Provider] - What to do if you have Problems For any increased pain, shortness of breath, bleeding, nausea or vomiting, chest pain, or any unexpected problems, contact your Primary Care Provider. Call [facility] ([phone]) or report to the closest Emergency Room. Call 911 if necessary. 03/20/17 5817 <Electronically signed by Smith Brown MD> Date Smith Brown MD Cosigner Signature (If Indicated): Date CC: Jules Douglass DO EMERGENCY DEPARTMENT Observed: 03/20/2017 Status: F Source: [place] SUMMARY 6:56 PM [facility] REPOSITORY [facility] Medical Records Department [address] [place] [address] Emergency Department Summary 03/20/17 1559 MR#: [id number] Acct: [id number] Name: ARLEEN REDMOND Rep #: [id number] : 1940 76 From: Smith Brown MD PCP: Jules Douglass DO Status: REG ER - ER Visit Summary Date of Service: 03/20/17 Chief Complaint: Back pain History of Present Illness: The patient is a 76 F who presents with lower back pain. She had a fall 5 days ago. She slipped on ice and fell. She did hit her head. She had a CAT scan done at [facility] that was negative and she was discharged home. She still having pain in the left buttock area. Movement makes it worse. Remaining still makes it better. She tried Tylenol and naproxen without relief. Physical Examination: Vital signs are reviewed. She has no lumbar tenderness to palpation. She is tender in the left buttock. She also has tenderness over the greater trochanter of the left hip. No pain with logroll. Her neurologic exam is normal Test Results: Hip and pelvis x-ray on the leg reveal no acute findings. Emergency Department Course and Treatment: Patient was treated with [place] here. She feels a little bit better. Treatment Plan: Patient likely has a contusion to these areas. She will be given 8 [place] for home. She will ice these areas will follow up with her PCP Disposition: Discharge Impression: Left hip contusion This note was generated with Drink[employer] dictation software. It may contain incorrect words, spelling, and punctuation that were not noted in review of the chart prior to signing ED Disposition - Plan for ED Patient: Chief Complaint: Back Referrals: Jules Douglass DO [Primary Care Provider] - What to do if you have Problems For any increased pain, shortness of breath, bleeding, nausea or vomiting, chest pain, or any unexpected problems, contact your Primary Care Provider. Call [facility] ([phone]) or report to the closest Emergency Room. Call 911 if necessary. 03/20/17 1856 <Electronically signed by Smith Brown MD> Date Smith Brown MD Cosigner Signature (If Indicated): Date CC: Jules Douglass DO HIP 2-3 VIEWS WITH Observed: 03/20/2017 Status: F Source: [place] PELVIS 3:53 PM [facility] REPOSITORY [facility] Imaging Services [address] [place] [address] Hip 2-3 Views with Pelvis MR#: [id number] Acct: [id number] Name: ARLEEN REDMOND Rep #: [id number] : 1940 F 76 From: Som Hernandez MD PCP: Jules Douglass DO Status: REG ER Study: Hip 2-3 Views with Pelvis Date of Exam: 03/20/17 Exam# [id number] Ordering Dr: Smith Brown MD STUDY: X-RAY - PELVIS AND LEFT HIP REASON FOR EXAM: Female, 76 years old. Left hip pain after fall. TECHNIQUE: Radiological exam, hip, unilateral, with pelvis when performed; 2 or 3 views. COMPARISON: None. FINDINGS: There is a non-specific bowel gas pattern. Normal visualized soft tissue structures. Normal bilateral iliac wings, sacroiliac joints and visualized sacrum. Normal bilateral superior and inferior pubic rami. Normal pubic symphysis. Normal bilateral ischial tuberosities. Normal visualized femoral head. Normal acetabulum. Normal hip joint. RAD/Hip 2-3 Views with Pelvis IMPRESSION: Normal x-ray examination of the pelvis and hip. Electronically Signed: Som Hernandez MD at 18:36 EST , Service support , CC: Smith Brown MD; Jules Douglass DO Professor Of Biostatistics: Signed CT SPINE CERVICAL W/O Observed: 03/15/2017 Status: F Source: [place] CONTRAST 7:35 PM [facility] REPOSITORY Exam Date/Time: 03/15/2017 19:48 EST Reason for Exam: Trauma Report EXAM: CT Spine Cervical w/o Contrast CLINICAL STATEMENT: Trauma COMPARISON: None. TECHNIQUE: CT Cervical spine without IV contrast. Coronal and sagittal reformations were performed. Dose reduction techniques were achieved by using automated exposure control and/or adjustment of mA and/or kV according to patient size and/or use of iterative reconstruction technique. FINDINGS: There is no fracture or subluxation. Vertebral body height is well maintained. No prevertebral soft tissue swelling is seen. Multilevel discogenic degenerative changes including disc space narrowing, endplate sclerosis and spurring identified, worse at C4-C5, C5-C6 and C6-C7. Facet joint sclerosis and hypertrophy also seen bilaterally at multiple levels. 1 mm anterolisthesis of C3 on C4 which can be explained by degenerative changes. Moderate neural foraminal stenosis at C6-C7 on the left. Mild neural foraminal stenosis at C5-C6 level bilaterally. IMPRESSION: 1. No evidence of fracture or subluxation. 2. Degenerative changes at multiple levels as above. FINAL REPORT Dictated: 03/15/2017 8:12 pm Ashlie Calderón DO Signed (Electronic Signature): 03/15/2017 8:12 pm Signed by: Ashlie Calderón DO Technologist: JAROCHO, CT HEAD OR BRAIN W/O Observed: 03/15/2017 Status: F Source: [place] CONTRAST 7:35 PM [facility] REPOSITORY Exam Date/Time: 03/15/2017 19:48 EST Reason for Exam: trauma, head injury;Other (please specify) Report EXAM: CT Head or Brain w/o Contrast CLINICAL STATEMENT: Fall. COMPARISON: None. TECHNIQUE: CT examination of the head without IV contrast. Coronal and sagittal reformations were performed. Dose reduction techniques were achieved by using automated exposure control and/or adjustment of mA and/or kV according to patient size and/or use of iterative reconstruction technique. FINDINGS: Left posterior parietal scalp laceration. Mild right frontal scalp swelling/hematoma measuring approximately 4.4 x 0.7 cm in size. Mild, diffuse parenchymal volume loss evidenced by prominent ventricles, cisterns, and sulci is identified. Periventricular and subcortical white matter changes are noted which given the patient's age, are suggestive of small vessel ischemic disease. The bello white differentiation is intact. No definite CT evidence of hyperattenuating material to suggest acute intracranial hemorrhage is identified. No evidence of depressed skull fracture is identified. The visualized paranasal sinuses demonstrate partial opacification of the right maxillary sinus. IMPRESSION : 1. Right frontal scalp swelling and hematoma as well as minimal left posterior parietal scalp laceration. No definite evidence of acute intracranial hemorrhage, skull fracture, or definite acute cortical infarct. 2. Nonspecific, periventricular white matter changes which given the patient's Exam Date/Time: 03/15/2017 19:48 EST Report age, are suggestive of small vessel ischemic disease. FINAL REPORT Dictated: 03/15/2017 8:09 pm Ashlie Calderón DO Signed (Electronic Signature): 03/15/2017 8:09 pm Signed by: Ashlie Calderón DO Technologist: JAROCHO, ALLERGIES ALLERGIES DATE TYPE / CODE NAME / CODE REACTION SEVERITY SOURCE 09/10/2017 Drug Sulfa Itching Unknown [facility] Allergy/277537081(S (Sulfonamide Community NOMED CT) Antibiotics)/ Hospital C409367024(RX Repository NORM) 09/10/2017 Miscellaneous betadine Other Unknown [facility] Allergy/432929808(S topical Community NOMED CT) Hospital Repository 09/10/2017 Miscellaneous neoprene Itching Unknown [facility] Allergy/690962158(S Community NOMED CT) Hospital Repository 09/10/2017 Miscellaneous poly vecro Other Unknown [place] Allergy/551025232(S sutures [facility] NOMED CT) Hospital Repository Drug/949015313(SNOM sulfa drugs [id number] Bahai ED CT) [facility] Repository Drug/545643904(SNOM Betadine [id number] Bahai ED CT) [facility] Repository ENCOUNTERS ENCOUNTERS ADMIT/DISCHARGE ACCOUNT NUMBER ADMITTING ENCOUNTER LOCATION SOURCE CLASS 02/19/2018 [id number] Ambulatory [facility] ding:US Repository 02/13/2018 [id number] Ambulatory [facility] ding:MTLAB Repository 02/11/2018 [id number] Ambulatory [facility] ding:RAD Repository 12/12/2017 [id number] Ambulatory [facility] ding:MEDOUTP Repository 11/24/2017/11/25/19 [id number] Kenisha Brasher [place] [address] Ulises Gutiérrez g:QCareRoom: [address] System Repository 11/23/2017/11/24/19 [id number] Ambulatory [facility]Building: [facility] [address] [place] [address] Hospital Repository 09/10/2017/09/11/19 [id number] Emergency [facility] ding:ED Repository 08/10/2017 [id number] Ambulatory [facility] ding:MTLAB Repository 07/17/2017 [id number] Ambulatory [facility] ding:WOBLAB Repository 07/11/2017 [id number] Ambulatory [facility] ding:LABSPEC Repository 05/10/2017 [id number] Ambulatory [facility] ding:MTLAB Repository 03/20/2017/03/20/19 [id number] Emergency [facility] ding:ED Repository 03/15/2017/03/15/20 [id number] Sandra, Emergency [address] ding:[facility] EDRoom: WR Repository PAYERS PAYERS ENCOUNTER GUARANTOR PAYER SUBSCRIBER SOURCE 02/19/2018 ARLEEN M Primary ARLEEN M [facility] [id number] [place] Insurance:MEDICARE MILLSDOB: Community AVE[address] A [facility] [id number] Number: Repository [address]Ved: [phone] [id number] [phone] (HP) Date:2018-01-28 02/19/2018 Secondary ARLEEN M [place] Insurance:AETNAPolicy MILLSDOB: Community Number: [id number] Hospital [id number] Repository Date:8923-66-91TS [facility] [id number] [place] [address]TR: 02/19/2018 Tertiary NOT GIVENUNK [facility] Insurance:SELF PAY [facility] Number: Effective Repository Date:2018-01-28 02/13/2018 ARLEEN M Primary ARLEEN M [facility] [id number] [place] Insurance:MEDICARE MILLSDOB: Community AVE[address] [facility] [id number] Number: Repository [address]Byu: [phone] [id number] [phone] () Date:2018-02-13 02/13/2018 Secondary ARLEEN M [place] Insurance:AETNAPolicy MILLSDOB: Community Number: [id number] Hospital [id number] Repository Date:2876-51-02YL [address] [place] [address]ZO: 02/13/2018 Tertiary NOT GIVENUNK [place] Insurance:SELF PAY [facility] Number: Effective Repository Date:2018-02-13 02/11/2018 ARLEEN M Primary ARLEEN M [facility] [id number] [place] Insurance:MEDICARE MILLSDOB: Community [address] [facility] [id number] Number: Repository [address]Asr: [phone] [id number] [phone] (HP) Date:2018-02-11 02/11/2018 Secondary ARLEEN M [facility] Insurance:AETNAPolicy MILLSDOB: Community Number: [id number] Hospital [id number] Repository Date:4231-44-44ME [address] [place] [address]HO: 02/11/2018 Tertiary NOT GIVENUNK [place] Insurance:SELF PAY [facility] Number: Effective Repository Date:2018-02-11 12/12/2017 ARLEEN M Primary ARLEEN M [place] [id number] [place] Insurance:MEDICARE MILLSDOB: Critical access hospital BOX PART A [facility] [id number] Number: Repository [address]Sua: 419 [id number] [phone] (HP) Date:2017-12-05 12/12/2017 Secondary ARLEEN M [facility] Insurance:AETNAPolicy MILLSDOB: Community Number: [id number] Hospital [id number] Repository Date:1384-72-35GB [facility] [id number] [place] [address]ZB: 12/12/2017 Tertiary NOT GIVENUNK [place] Insurance:SELF PAY [facility] Number: Effective Repository Date:2017-12-05 11/24/2017 ARLEEN M Primary ARLEEN M [place]ai MILLSDOB: Insurance:1500 MILLSDOB: [facility] MEDICARE [id number] System [facility] Number: LEE Repository [place], [place] [address]Bkj: Date:2017-11-2430777-7360Wdx: [id number] (HP) Name:CD:[id number] O ()Tel: 000) [address], 000-0000 (WP) [place] [address]FI: 11/24/2017 Secondary ARLEEN Faith RobertsBahai Insurance:1500 MILLSDOB: [facility] AETNAPolic Number: [id number] System Effective [place] Repository Date:2017-11-24 - [place], [place] 9643-47-83Eioe [address]Yio: Name:CD:[id number] [address]JHSOPHIE BOYCE (HP)Tel: [phone]: () [phone] 11/23/2017 Arleen M Primary Arleen M [facility] [id number] [place] Insurance:MEDICARE MillsDOB: Community AvePo [address] [facility] [id number] [place] [address] Number: Repository [address]Uux: [phone] [id number] [phone] () Date:2017-11-23 11/23/2017 Secondary Arleen M [place] Insurance:AETNAPolicy MillsDOB: Community Number: [id number] Hospital [id number] Repository Date:6809-45-33PF [address] [place] [address]TR: 11/23/2017 Tertiary NOT GIVENUNK [place] Insurance:SELF PAY [facility] Hospital Number: Effective Repository Date:2017-11-23 09/10/2017 Arleen M Primary Arleen M [facility] [id number] [place] Insurance:MEDICARE MillsDOB: Community AvePo [address] [facility] [id number] Number: Repository [address]Lrq: [phone] [id number] [phone] () Date:2017-09-10 09/10/2017 Secondary Arleen M [place] Insurance:AETNAPolicy MillsDOB: Community Number: [id number] Hospital [id number] Repository Date:6686-50-43YI [address] [address]EU: 09/10/2017 Tertiary NOT GIVENUNK [place] Insurance:SELF PAY Community [facility] Number: Effective Repository Date:2017-09-10 08/10/2017 Arleen M Primary Arleen M [place] [id number] [place] Insurance:MEDICARE MillsDOB: Community AvePo [address] [facility] [id number] Number: Repository [address]Uxj: 419 [id number] [phone] () Date:2017-08-10 08/10/2017 Secondary Arleen M [place] Insurance:AETNAPolicy MillsDOB: Community Number: [id number] Hospital [id number] Repository Date:4900-30-03OZ [facility] [id number] [place] [address]FZ: 08/10/2017 Tertiary NOT GIVENUNK [facility] Insurance:SELF PAY Community [facility] Number: Effective Repository Date:2017-08-10 07/17/2017 Arleen M Primary Arleen M [place] [id number] [place] Insurance:MEDICARE MillsDOB: Community Ave[address] [facility] [id number] Number: Repository [address]Tqf: 419 [id number] [phone] () Date:2017-07-17 07/17/2017 Secondary Arleen M [facility] Insurance:AETNAPolicy MillsDOB: Community Number: [id number] Hospital [id number] Repository Date:7500-77-04HL [address] [place] [address]UO: 07/17/2017 Tertiary NOT GIVENUNK [place] Insurance:SELF PAY Community [facility] Number: Effective Repository Date:2017-07-17 07/11/2017 Arleen M Primary Arleen M [facility] [id number] [place] Insurance:MEDICARE MillsDOB: Community AvePo [address] [facility] [id number] Number: Repository [address]Ort: 419 [id number] [phone] () Date:2017-07-11 07/11/2017 Secondary Arleen M [place] Insurance:AETNAPolicy MillsDOB: Community Number: [id number] Hospital [id number] Repository Date:5286-63-24AX [facility] [address] [address]PL: 07/11/2017 Tertiary NOT GIVENUNK [place] Insurance:SELF PAY [facility] Number: Effective Repository Date:2017-07-11 05/10/2017 Arleen M Primary Arleen M [place] [id number] [place] Insurance:MEDICARE MillsDOB: Community Ave[address] [facility] [id number] Number: Repository [address]Ahb: 419 [id number] [phone] () Date:2017-05-10 05/10/2017 Secondary Arleen M [place] Insurance:AETNAPolicy MillsDOB: Community Number: [id number] Hospital [id number] Repository Date:5288-83-43CS [address] [address]RG: 05/10/2017 Tertiary NOT GIVENUNK [facility] Insurance:SELF PAY [facility] Number: Effective Repository Date:2017-05-10 03/20/2017 Arleen M Primary Arleen M [facility] [id number] [place] Insurance:MEDICARE MillsDOB: Community AvePo [address] [facility] [id number] Number: Repository [address]Udt: 419 [id number] [phone] () Date:2017-03-20 03/20/2017 Secondary Arleen M [facility] Insurance:AETNAPolicy MillsDOB: Community Number: [id number] Hospital [id number] Repository Date:7832-40-41GC [address] [address]FW: 03/20/2017 Tertiary NOT GIVENUNK [place] Insurance:SELF PAY [facility] Number: Effective Repository Date:2017-03-20 03/15/2017 ARLEEN Cuevas Primary ARLEEN Copelnad [facility] Insurance:MedicarePol [facility]: [facility] icy Number: Effective [id number] [facility] Date:2017-03-15 - [facility] [place], [place] 5163-38-36Ypxe [place] [id number]: Name:CD:[id number] [id number]: [id number], [place] (HP) [phone]: ([phone]) (HP) [phone] (WP) 03/15/2017 Secondary ARLEEN Copeland Insurance:AETNAPolicy [facility] Number: Effective [id number] System Date:2017-03-15 - [facility] [id number] [place], [place] Name:[id number] [id number]: [id number] BOYCE [id number]: [phone] (HP) [phone] (WP)
== END ==
PROVIDERS: Family Provider Family Medicine; PCP Family Medicine; Referring Provider Psychiatry & Neurology Neurology; Visit Provider Psychiatry & Neurology Neurology
DX: G62.9 Polyneuropathy, unspecified (principal); R53.1 Weakness; R53.83 Other fatigue
CPT/HCPCS: 36415; 82175; 82570; 82607; 82746; 82784; 83655; 83825; 84165; 84443; 85652; 86038; 86235; 86334; 86431; 86703; 86803

== ENCOUNTER → 2018-02-19 08:08 | Outpatient (CLI) | payer MEDICARE, OTHER, SELFPAY ==
--- NOTE | 2018-02-19 08:14 | US_ITS ---
STUDY: RENAL ULTRASOUND - COMPLETE REASON FOR EXAM: Female, 77 years old. History of renal cell carcinoma. TECHNIQUE: Ultrasound evaluation of the kidneys was performed with real-time and static steward-scale imaging. COMPARISON: Comparison is made with prior study dated October 03, 2016. FINDINGS: RIGHT KIDNEY: Normal location of the right kidney, which is normal in size. The right kidney measures 11.2 cm x 5.3 cm x 4.9 cm. There is a normal cortex of the right kidney. The renal cortex measures 1.3 cm. There is no right renal mass or cyst. There are no right renal calculi. There is no right hydronephrosis. The patient is status post partial right nephrectomy with lobular changes at the operative site. DISTAL RIGHT URETER: There is non-visualization of the distal right ureter. There is no demonstrated right ureterovesical junction calculus. There is no demonstrated right ureteral jet. LEFT KIDNEY: Normal location of the left kidney, which is normal in size. The left kidney measures 11.5 cm x 3.8 cm x 5.1 cm. There is a normal cortex of the left kidney. The renal cortex measures 1.3 cm. There is no left renal mass or cyst. There are no left renal calculi. There is mild hydronephrosis of the left kidney. DISTAL LEFT URETER: There is non-visualization of the distal left ureter. There is no demonstrated left ureterovesical junction calculus. There is no demonstrated left ureteral jet. BLADDER: The bladder is empty at the time of the examination. US/Kidney and Bladder IMPRESSION: Status post right partial nephrectomy. There has been no change. Mild left hydronephrosis. Electronically Signed: Ryder Champagne MD at 14:50 EST Tel [phone], Service support ,
--- NOTE | 2018-02-19 08:21 | RAD_ITS ---
STUDY: X-RAY CHEST REASON FOR EXAM: Female, 77 years old. History of renal cell carcinoma. TECHNIQUE: PA and lateral views of the chest. COMPARISON: Comparison is made with prior study dated September 26, 2016. FINDINGS: Mild increased markings at the left lung base suggestive of scarring. There is no demonstrated pleural abnormality. Normal size heart. Normal mediastinum and jessica. Normal visualized pulmonary arteries. There is atherosclerotic tortuosity of the aortic arch and descending thoracic aorta. There are diffuse degenerative changes of the visualized thoracic spine. Normal visualized ribs, clavicles, and shoulders. There is no demonstrated abnormality of the visualized soft tissue structures of the upper abdomen. RAD/Chest PA and Lateral IMPRESSION: Mild increased markings at the left lung base suggestive of scarring. Electronically Signed: Ryder Champagne MD at 14:36 EST Tel [phone], Service support ,
[2018-02-19 11:11] LABS: Hemoglobin A1c 7.6 % (4.2-6.3)
[2018-02-19 11:19] LABS: Cholesterol 213 mg/dL (200); High Density Lipoprotein 71 mg/dL; Triglycerides 137 mg/dL; Very Low Density Lipoprotein 27 mg/dL (5-40)
[2018-02-19 13:16] LABS: Microalbumin:Creatinine Ratio 21.4 mg/g CRE (<30 mg/g CRE)
== END ==
PROVIDERS: Family Provider Family Medicine; PCP Family Medicine; Referring Provider Urology; Visit Provider Urology
DX: C64.9 Malignant neoplasm of unspecified kidney, except renal pelvis (principal); E11.9 Type 2 diabetes mellitus without complications; I10 Essential (primary) hypertension; M81.0 Age-related osteoporosis without current pathological fracture; M85.80 Other specified disorders of bone density and structure, unspecified site; E66.9 Obesity, unspecified
CPT/HCPCS: 36415; 71046; 76770; 80061; 82043; 82570; 83036

== ENCOUNTER → 2018-07-23 17:29 | Outpatient (CLI) | payer MEDICARE, OTHER, SELFPAY | PROVIDERS: Family Provider Family Medicine; PCP Family Medicine; Visit Provider Nurse Practitioner Adult Health | DX: R30.0 Dysuria (principal) | CPT/HCPCS: 87086; 87088 ==

== ENCOUNTER → 2018-07-24 09:14 | Outpatient (CLI) | payer MEDICARE, OTHER, SELFPAY | PROVIDERS: Family Provider Family Medicine; PCP Family Medicine; Referring Provider Nurse Practitioner Adult Health; Visit Provider Nurse Practitioner Adult Health | DX: R30.0 Dysuria (principal) ==

== ENCOUNTER → 2018-09-24 09:06 | Outpatient (CLI) | payer OTHER, SELFPAY ==
[2018-09-24 10:19] LABS: Absolute Lymphocyte Count 2.02 X10^3/ul (0.83-4.51); Absolute Neutrophil Count 5.4 X10^3/uL (2.0-7.7); Basophil# 0.04 X10^3/uL; Basophil% 0.5 % (0-1); Eosinophil# 0.21 X10^3/uL; Eosinophils% 2.6 % (0-5); Hematocrit 41.9 % (37-47); Hemoglobin 13.5 g/dl (12.0-15.0); Lymphocyte # 2.02 X10^3/ul (4.0); Lymphocyte % 25.3 % (19-41); Mean Corp Hgb Conc 32.2 g/gl (32-36); Mean Corpuscular Hgb 28.6 pg (27.0-32.0); Mean Corpuscular Volume 88.8 fL (81-99); Mean Platelet Vol. 11.4 fl (6.2-12.0); Monocyte# 0.32 X10^3/uL; Neutrophil # 5.39 X10^3/uL (2.7-7.7); Neutrophil % 67.3 % (47-70); Platelet Count 227 K/mm3 (150-450); RBC Distribution Width CV 15.8 % (11.6-14.6); RBC Distribution Width SD 50.8 fl (35.1-43.9); Red Blood Count 4.72 M/mm3 (4.2-5.4)
[2018-09-24 10:25] LABS: POSITIVE COUNT NO; POSITIVE DIFFERENTIAL NO; POSITIVE MORPHOLOGY NO
[2018-09-24 10:37] LABS: ALB/GLOB Ratio 0.8 RATIO (0.9-2.4); AST(SGOT) 16 U/L (15-37); Alanine Aminotransfer ALT/SGPT 22 U/L (13-56); Albumin, Serum 3.7 g/dL (3.2-5.0); Alkaline Phosphatase 77 U/L (45-117); Anion Gap 6 (5-15); BUN 24 mg/dL (7-18); BUN/Creat Ratio 26.5 RATIO (10-20); Calcium,Total 9.4 mg/dL (8.5-10.1); Chloride 103 mmol/L (98-107); Creatinine, Serum 0.91 mg/dL (0.55-1.02); EST Glomerular Filtration Rate 64 mL/min (>60); Est Glom Filt Rate - Afr Amer 78 mL/min (>60); Globulin 4.4 g/dL (2.2-4.2); Glucose 152 mg/dL (74-106); Potassium 4.3 mmol/L (3.5-5.1); Protein, Total 8.1 g/dL (6.4-8.2); Sodium Level 142 mmol/L (136-145)
== END ==
LOC: MTLAB 09:08
PROVIDERS: Family Provider Family Medicine; PCP Family Medicine; Referring Provider Internal Medicine Rheumatology; Visit Provider Internal Medicine Rheumatology
DX: M06.4 Inflammatory polyarthropathy (principal); M79.7 Fibromyalgia; M17.0 Bilateral primary osteoarthritis of knee; M18.0 Bilateral primary osteoarthritis of first carpometacarpal joints; Z79.899 Other long term (current) drug therapy
CPT/HCPCS: 36415; 80053; 85025

== ENCOUNTER → 2018-12-25 11:27 | Outpatient (CLI) | payer MEDICARE, OTHER, SELFPAY ==
[2018-12-25 14:08] LABS: Absolute Lymphocyte Count 2.11 X10^3/uL (0.83-4.51); Absolute Neutrophil Count 6.6 X10^3/uL (2.0-7.7); Basophil# 0.07 X10^3/uL; Basophil% 0.7 % (0-1); Eosinophil# 0.15 X10^3/uL; Eosinophils% 1.6 % (0-5); Hematocrit 39.5 % (37-47); Hemoglobin 12.2 g/dL (12.0-15.0); Lymphocyte # 2.11 X10^3/ul (4.0); Mean Corp Hgb Conc 30.9 g/dL (32-36); Mean Corpuscular Hgb 28.8 pg (27.0-32.0); Mean Corpuscular Volume 93.4 fL (81-99); Monocyte# 0.64 X10^3/uL; Monocyte% 6.7 % (0-10); NRBC Flagged by Analyzer 0 % (0-5); Neutrophil # 6.57 X10^3/uL (2.7-7.7); Neutrophil % 68.5 % (47-70); Platelet Count 233 K/mm3 (150-450); RBC Distribution Width CV 16.7 % (11.6-14.6); RBC Distribution Width SD 57.2 fl (35.1-43.9); Red Blood Count 4.23 M/mm3 (4.2-5.4); White Blood Count 9.6 K/mm3 (4.4-11.0)
[2018-12-25 14:23] LABS: ALB/GLOB Ratio 1.1 RATIO (0.9-2.4); AST(SGOT) 13 U/L (15-37); Alanine Aminotransfer ALT/SGPT 21 U/L (13-56); Albumin, Serum 3.7 g/dL (3.2-5.0); Alkaline Phosphatase 69 U/L (45-117); Anion Gap 8 (5-15); BUN 17 mg/dL (7-18); Calcium,Total 8.9 mg/dL (8.5-10.1); Chloride 107 mmol/L (98-107); EST Glomerular Filtration Rate 65 mL/min (>60); Est Glom Filt Rate - Afr Amer 79 mL/min (>60); Globulin 3.5 g/dL (2.2-4.2); Glucose 166 mg/dL (74-106); Potassium 3.8 mmol/L (3.5-5.1); Protein, Total 7.2 g/dL (6.4-8.2); Sodium Level 144 mmol/L (136-145)
== END ==
PROVIDERS: Family Provider Family Medicine; PCP Family Medicine; Referring Provider Internal Medicine Rheumatology; Visit Provider Internal Medicine Rheumatology
DX: M06.4 Inflammatory polyarthropathy (principal); Z79.899 Other long term (current) drug therapy; M79.7 Fibromyalgia; M18.11 Unilateral primary osteoarthritis of first carpometacarpal joint, right hand; M18.12 Unilateral primary osteoarthritis of first carpometacarpal joint, left hand; M15.9 Polyosteoarthritis, unspecified; M17.0 Bilateral primary osteoarthritis of knee; M81.0 Age-related osteoporosis without current pathological fracture
CPT/HCPCS: 36415; 80053; 85025

== ENCOUNTER → 2019-03-25 11:27 | Outpatient (CLI) | payer MEDICARE, OTHER, SELFPAY ==
[2019-03-25 14:09] LABS: Absolute Lymphocyte Count 1.93 X10^3/uL (0.83-4.51); Absolute Neutrophil Count 4.8 X10^3/uL (2.0-7.7); Basophil# 0.05 X10^3/uL; Basophil% 0.7 % (0-1); Eosinophil# 0.18 X10^3/uL; Eosinophils% 2.4 % (0-5); Hematocrit 38.7 % (37-47); Hemoglobin 12.3 g/dL (12.0-15.0); Lymphocyte # 1.93 X10^3/ul (4.0); Lymphocyte % 25.5 % (19-41); Mean Corp Hgb Conc 31.8 g/dL (32-36); Mean Corpuscular Hgb 29.6 pg (27.0-32.0); Mean Corpuscular Volume 93.3 fL (81-99); Monocyte# 0.58 X10^3/uL; Monocyte% 7.7 % (0-10); NRBC Flagged by Analyzer 0 % (0-5); Neutrophil # 4.77 X10^3/uL (2.7-7.7); Neutrophil % 62.9 % (47-70); Platelet Count 354 K/mm3 (150-450); RBC Distribution Width CV 16.2 % (11.6-14.6); Red Blood Count 4.15 M/mm3 (4.2-5.4); White Blood Count 7.6 K/mm3 (4.4-11.0)
[2019-03-25 14:25] LABS: ALB/GLOB Ratio 0.9 RATIO (0.9-2.4); AST(SGOT) 13 U/L (15-37); Alanine Aminotransfer ALT/SGPT 25 U/L (13-56); Albumin, Serum 3.6 g/dL (3.2-5.0); Alkaline Phosphatase 63 U/L (45-117); Anion Gap 5 (5-15); BUN 26 mg/dL (7-18); BUN/Creat Ratio 28.8 RATIO (10-20); Calcium,Total 8.4 mg/dL (8.5-10.1); Chloride 102 mmol/L (98-107); Cholesterol 206 mg/dL (200); EST Glomerular Filtration Rate 64 mL/min (>60); Est Glom Filt Rate - Afr Amer 78 mL/min (>60); Glucose 122 mg/dL (74-106); High Density Lipoprotein 85 mg/dL; Potassium 3.7 mmol/L (3.5-5.1); Protein, Total 7.6 g/dL (6.4-8.2); Sodium Level 136 mmol/L (136-145); Triglycerides 129 mg/dL; Very Low Density Lipoprotein 26 mg/dL (5-40)
[2019-03-25 14:30] LABS: Microalbumin:Creatinine Ratio 67.7 mg/g CRE (<30 mg/g CRE)
== END ==
PROVIDERS: Family Provider Family Medicine; PCP Family Medicine; Referring Provider Family Medicine; Visit Provider Family Medicine
DX: E11.9 Type 2 diabetes mellitus without complications (principal); I10 Essential (primary) hypertension; M06.4 Inflammatory polyarthropathy; M79.7 Fibromyalgia; M18.0 Bilateral primary osteoarthritis of first carpometacarpal joints; M17.0 Bilateral primary osteoarthritis of knee; M81.0 Age-related osteoporosis without current pathological fracture; Z79.899 Other long term (current) drug therapy
CPT/HCPCS: 36415; 80053; 80061; 82043; 82570; 85025

== ENCOUNTER → 2019-05-14 09:51 | Outpatient (CLI) | payer MEDICARE, OTHER, SELFPAY ==
--- NOTE | 2019-05-14 09:59 | RAD_ITS ---
STUDY: X-RAY - PELVIS AND LEFT HIP REASON FOR EXAM: Female, 78 years old. CHRONIC HIP PAIN TECHNIQUE: 3 views of the pelvis and hip. COMPARISON: Prior exam of March 20, 2019 FINDINGS: There is a non-specific bowel gas pattern. Normal visualized soft tissue structures. Mild degenerative changes of the sacroiliac joints and symphysis pubis. Normal bilateral superior and inferior pubic rami. Normal pubic symphysis. Normal bilateral ischial tuberosities. Normal visualized femoral head. Normal acetabulum. There is mild articular joint space narrowing of the hip. RAD/HIP, UNI W/ Pelvis 2-3 Views IMPRESSION: The pelvic ring and femur are intact with no fracture deformity. Mild articular narrowing of the left hip not substantially changed from the prior exam. Mild degenerative changes of the sacroiliac joints and symphysis pubis. Degenerative changes appropriate for age. Electronically Signed: Sharda Cohen MD at 23:11 EST , Service support ,
== END ==
PROVIDERS: PCP Family Medicine; Referring Provider Psychiatry & Neurology Neurology; Visit Provider Psychiatry & Neurology Neurology
DX: M16.12 Unilateral primary osteoarthritis, left hip (principal)
CPT/HCPCS: 73502

== ENCOUNTER → 2019-08-05 12:02 | Outpatient (CLI) | payer MEDICARE, OTHER, SELFPAY ==
[2019-08-05 15:03] LABS: ALB/GLOB Ratio 0.9 RATIO (0.9-2.4); AST(SGOT) 13 U/L (15-37); Absolute Lymphocyte Count 3.24 X10^3/uL (0.83-4.51); Alanine Aminotransfer ALT/SGPT 21 U/L (13-56); Albumin, Serum 3.7 g/dL (3.2-5.0); Alkaline Phosphatase 66 U/L (45-117); Anion Gap 9 (5-15); BUN 39 mg/dL (7-18); BUN/Creat Ratio 36.4 RATIO (10-20); Basophil# 0.06 X10^3/uL; Basophil% 0.5 % (0-1); Calcium,Total 9.7 mg/dL (8.5-10.1); Chloride 105 mmol/L (98-107); Creatinine, Serum 1.07 mg/dL (0.55-1.02); EST Glomerular Filtration Rate 53 mL/min (>60); Eosinophil# 0.23 X10^3/uL; Eosinophils% 1.7 % (0-5); Est Glom Filt Rate - Afr Amer 64 mL/min (>60); Globulin 4.3 g/dL (2.2-4.2); Glucose 168 mg/dL (74-106); Hematocrit 37.3 % (37-47); Hemoglobin 11.8 g/dL (12.0-15.0); Lymphocyte # 3.24 X10^3/ul (4.0); Lymphocyte % 24.5 % (19-41); Mean Corp Hgb Conc 31.6 g/dL (32-36); Mean Corpuscular Hgb 31.3 pg (27.0-32.0); Mean Corpuscular Volume 98.9 fL (81-99); Mean Platelet Vol. 10.7 fl (6.2-12.0); Monocyte# 0.63 X10^3/uL; Monocyte% 4.8 % (0-10); NRBC Flagged by Analyzer 0 % (0-5); Neutrophil # 8.99 X10^3/uL (2.7-7.7); Neutrophil % 68.1 % (47-70); Platelet Count 314 K/mm3 (150-450); Potassium 4.3 mmol/L (3.5-5.1); RBC Distribution Width CV 14.9 % (11.6-14.6); Red Blood Count 3.77 M/mm3 (4.2-5.4); Sodium Level 138 mmol/L (136-145); White Blood Count 13.2 K/mm3 (4.4-11.0)
== END ==
PROVIDERS: PCP Family Medicine; Referring Provider Internal Medicine Rheumatology; Visit Provider Internal Medicine Rheumatology
DX: M06.4 Inflammatory polyarthropathy (principal); M79.7 Fibromyalgia; M25.562 Pain in left knee; M18.0 Bilateral primary osteoarthritis of first carpometacarpal joints; M17.0 Bilateral primary osteoarthritis of knee; M81.0 Age-related osteoporosis without current pathological fracture; Z79.899 Other long term (current) drug therapy
CPT/HCPCS: 36415; 80053; 85025

== ENCOUNTER → 2019-11-11 09:54 | Outpatient (CLI) | payer MEDICARE, OTHER, SELFPAY ==
[2019-11-11 12:18] LABS: Absolute Lymphocyte Count 2.68 X10^3/uL (0.83-4.51); Absolute Neutrophil Count 5.5 X10^3/uL (2.0-7.7); Basophil# 0.05 X10^3/uL; Basophil% 0.5 % (0-1); Eosinophil# 0.43 X10^3/uL; Eosinophils% 4.4 % (0-5); Hemoglobin 10.4 g/dL (12.0-15.0); Lymphocyte # 2.68 X10^3/ul (4.0); Lymphocyte % 27.7 % (19-41); Mean Corp Hgb Conc 30.6 g/dL (32-36); Mean Corpuscular Volume 94.7 fL (81-99); Mean Platelet Vol. 9.8 fl (6.2-12.0); Monocyte# 0.91 X10^3/uL; Monocyte% 9.4 % (0-10); NRBC Flagged by Analyzer 0 % (0-5); Neutrophil # 5.54 X10^3/uL (2.7-7.7); Neutrophil % 57.3 % (47-70); Platelet Count 374 K/mm3 (150-450); RBC Distribution Width CV 15.2 % (11.6-14.6); RBC Distribution Width SD 52.1 fl (35.1-43.9); Red Blood Count 3.59 M/mm3 (4.2-5.4); White Blood Count 9.7 K/mm3 (4.4-11.0)
[2019-11-11 13:13] LABS: ALB/GLOB Ratio 0.7 RATIO (0.9-2.4); AST(SGOT) 26 U/L (15-37); Alanine Aminotransfer ALT/SGPT 22 U/L (13-56); Albumin, Serum 3.1 g/dL (3.2-5.0); Alkaline Phosphatase 86 U/L (45-117); Anion Gap 8 (5-15); BUN 26 mg/dL (7-18); BUN/Creat Ratio 23.9 RATIO (10-20); Chloride 107 mmol/L (98-107); Creatinine, Serum 1.09 mg/dL (0.55-1.02); EST Glomerular Filtration Rate 52 mL/min (>60); Est Glom Filt Rate - Afr Amer 63 mL/min (>60); Globulin 4.4 g/dL (2.2-4.2); Glucose 236 mg/dL (74-106); Potassium 3.9 mmol/L (3.5-5.1); Protein, Total 7.5 g/dL (6.4-8.2); Sodium Level 139 mmol/L (136-145)
== END ==
PROVIDERS: PCP Family Medicine; Visit Provider Family Medicine
DX: E87.1 Hypo-osmolality and hyponatremia (principal); D64.9 Anemia, unspecified; A09 Infectious gastroenteritis and colitis, unspecified
CPT/HCPCS: 36415; 80053; 85025

== ENCOUNTER → 2020-01-28 13:01 | Outpatient (CLI) | payer MEDICARE, OTHER, SELFPAY ==
[2020-01-28 15:35] LABS: Absolute Lymphocyte Count 2.66 X10^3/uL (0.83-4.51); Absolute Neutrophil Count 5.8 X10^3/uL (2.0-7.7); Basophil# 0.05 X10^3/uL; Basophil% 0.5 % (0-1); Eosinophil# 0.31 X10^3/uL; Eosinophils% 3.3 % (0-5); Hematocrit 37.7 % (37-47); Hemoglobin 11.3 g/dL (12.0-15.0); Lymphocyte # 2.66 X10^3/ul (4.0); Lymphocyte % 28.3 % (19-41); Mean Corpuscular Hgb 28.2 pg (27.0-32.0); Mean Platelet Vol. 10.7 fl (6.2-12.0); Monocyte# 0.58 X10^3/uL; Monocyte% 6.2 % (0-10); NRBC Flagged by Analyzer 0 % (0-5); Neutrophil # 5.76 X10^3/uL (2.7-7.7); Neutrophil % 61.4 % (47-70); Platelet Count 321 K/mm3 (150-450); RBC Distribution Width CV 15.6 % (11.6-14.6); RBC Distribution Width SD 54.8 fl (35.1-43.9); Red Blood Count 4.01 M/mm3 (4.2-5.4); White Blood Count 9.4 K/mm3 (4.4-11.0)
[2020-01-28 15:42] LABS: ALB/GLOB Ratio 0.7 RATIO (0.9-2.4); AST(SGOT) 13 U/L (15-37); Alanine Aminotransfer ALT/SGPT 19 U/L (13-56); Albumin, Serum 3.3 g/dL (3.2-5.0); Alkaline Phosphatase 89 U/L (45-117); Anion Gap 4 (5-15); BUN 31 mg/dL (7-18); BUN/Creat Ratio 32.2 RATIO (10-20); Calcium,Total 8.8 mg/dL (8.5-10.1); Chloride 110 mmol/L (98-107); Cholesterol 168 mg/dL (200); Creatinine, Serum 0.96 mg/dL (0.55-1.02); EST Glomerular Filtration Rate 60 mL/min (>60); Est Glom Filt Rate - Afr Amer 72 mL/min (>60); Globulin 4.6 g/dL (2.2-4.2); Glucose 157 mg/dL (74-106); High Density Lipoprotein 58 mg/dL; Potassium 4.1 mmol/L (3.5-5.1); Protein, Total 7.9 g/dL (6.4-8.2); Sodium Level 141 mmol/L (136-145); Triglycerides 181 mg/dL; Very Low Density Lipoprotein 36 mg/dL (5-40)
[2020-01-28 15:47] LABS: Microalbumin,Random Urine 22.6 mg/L (NO RANGE EST.); Microalbumin:Creatinine Ratio 8.4 mg/g CRE (<30 mg/g CRE)
[2020-01-28 17:37] LABS: Hemoglobin A1c 7.6 % (3.8-5.6)
== END ==
PROVIDERS: PCP Family Medicine; Referring Provider Family Medicine; Visit Provider Family Medicine
DX: M06.4 Inflammatory polyarthropathy (principal); M79.7 Fibromyalgia; M15.9 Polyosteoarthritis, unspecified; M81.0 Age-related osteoporosis without current pathological fracture; I10 Essential (primary) hypertension; E11.9 Type 2 diabetes mellitus without complications; F32.89 Other specified depressive episodes; H34.8322 Tributary (branch) retinal vein occlusion, left eye, stable; R19.7 Diarrhea, unspecified; Z85.528 Personal history of other malignant neoplasm of kidney; Z79.899 Other long term (current) drug therapy
CPT/HCPCS: 36415; 80053; 80061; 82043; 82570; 83036; 85025

== ENCOUNTER → 2020-05-03 14:09 | Outpatient (CLI) | payer MEDICARE, OTHER, SELFPAY ==
[2020-05-03 17:34] LABS: Absolute Lymphocyte Count 2.54 X10^3/uL (0.83-4.51); Absolute Neutrophil Count 5.9 X10^3/uL (2.0-7.7); Basophil# 0.04 X10^3/uL; Basophil% 0.4 % (0-1); Eosinophils% 2.1 % (0-5); Hematocrit 37.8 % (37-47); Hemoglobin 11.4 g/dL (12.0-15.0); Lymphocyte # 2.54 X10^3/ul (4.0); Lymphocyte % 26.5 % (19-41); Mean Corp Hgb Conc 30.2 g/dL (32-36); Mean Corpuscular Hgb 27.6 pg (27.0-32.0); Mean Corpuscular Volume 91.5 fL (81-99); Mean Platelet Vol. 10.7 fl (6.2-12.0); Monocyte# 0.85 X10^3/uL; Monocyte% 8.9 % (0-10); NRBC Flagged by Analyzer 0 % (0-5); Neutrophil # 5.92 X10^3/uL (2.7-7.7); Neutrophil % 61.7 % (47-70); Platelet Count 267 K/mm3 (150-450); RBC Distribution Width CV 17.2 % (11.6-14.6); RBC Distribution Width SD 57.4 fl (35.1-43.9); Red Blood Count 4.13 M/mm3 (4.2-5.4); White Blood Count 9.6 K/mm3 (4.4-11.0)
[2020-05-03 17:58] LABS: ALB/GLOB Ratio 0.9 RATIO (0.9-2.4); AST(SGOT) 15 U/L (15-37); Alanine Aminotransfer ALT/SGPT 26 U/L (13-56); Albumin, Serum 3.5 g/dL (3.2-5.0); Alkaline Phosphatase 92 U/L (45-117); Anion Gap 6 (5-15); BUN 22 mg/dL (7-18); BUN/Creat Ratio 25.1 RATIO (10-20); Calcium,Total 8.7 mg/dL (8.5-10.1); Chloride 105 mmol/L (98-107); Creatinine, Serum 0.88 mg/dL (0.55-1.02); EST Glomerular Filtration Rate 67 mL/min (>60); Est Glom Filt Rate - Afr Amer 81 mL/min (>60); Globulin 4.1 g/dL (2.2-4.2); Glucose 226 mg/dL (74-106); Protein, Total 7.6 g/dL (6.4-8.2); Sodium Level 139 mmol/L (136-145)
== END ==
PROVIDERS: PCP Family Medicine; Referring Provider Internal Medicine Rheumatology; Visit Provider Internal Medicine Rheumatology
DX: M06.4 Inflammatory polyarthropathy (principal); M79.7 Fibromyalgia; M17.0 Bilateral primary osteoarthritis of knee; M18.0 Bilateral primary osteoarthritis of first carpometacarpal joints; M81.0 Age-related osteoporosis without current pathological fracture; Z79.899 Other long term (current) drug therapy
CPT/HCPCS: 36415; 80053; 85025

== ENCOUNTER → 2020-07-23 10:01 | Outpatient (CLI) | payer MEDICARE, OTHER, SELFPAY ==
[2020-07-23 12:00] LABS: Absolute Lymphocyte Count 2.46 X10^3/uL (0.83-4.51); Absolute Neutrophil Count 6.2 X10^3/uL (2.0-7.7); Basophil# 0.06 X10^3/uL; Basophil% 0.6 % (0-1); Eosinophil# 0.28 X10^3/uL; Eosinophils% 2.9 % (0-5); Hematocrit 36.4 % (37-47); Hemoglobin 11.4 g/dL (12.0-15.0); Lymphocyte # 2.46 X10^3/ul (0.83-4.51); Lymphocyte % 25.5 % (19-41); Mean Corp Hgb Conc 31.3 g/dL (32-36); Mean Corpuscular Hgb 28.4 pg (27.0-32.0); Mean Corpuscular Volume 90.8 fL (81-99); Mean Platelet Vol. 11.3 fl (6.2-12.0); Monocyte# 0.62 X10^3/uL; Monocyte% 6.4 % (0-10); NRBC Flagged by Analyzer 0 % (0-5); Neutrophil % 64.2 % (47-70); Platelet Count 222 K/mm3 (150-450); RBC Distribution Width CV 16.7 % (11.6-14.6); RBC Distribution Width SD 55.8 fl (35.1-43.9); Red Blood Count 4.01 M/mm3 (4.2-5.4); White Blood Count 9.7 K/mm3 (4.4-11.0)
[2020-07-23 12:19] LABS: ALB/GLOB Ratio 0.9 RATIO (0.9-2.4); AST(SGOT) 14 U/L (15-37); Alanine Aminotransfer ALT/SGPT 18 U/L (13-56); Albumin, Serum 3.4 g/dL (3.2-5.0); Alkaline Phosphatase 88 U/L (45-117); Anion Gap 7 (5-15); BUN 21 mg/dL (7-18); BUN/Creat Ratio 27.9 RATIO (10-20); Calcium,Total 8.3 mg/dL (8.5-10.1); Chloride 106 mmol/L (98-107); Creatinine, Serum 0.75 mg/dL (0.55-1.02); EST Glomerular Filtration Rate 79 mL/min (>60); Est Glom Filt Rate - Afr Amer 96 mL/min (>60); Globulin 3.8 g/dL (2.2-4.2); Glucose 146 mg/dL (74-106); Potassium 3.9 mmol/L (3.5-5.1); Protein, Total 7.2 g/dL (6.4-8.2); Sodium Level 140 mmol/L (136-145)
== END ==
PROVIDERS: PCP Family Medicine; Referring Provider Internal Medicine Rheumatology; Visit Provider Internal Medicine Rheumatology
DX: M06.4 Inflammatory polyarthropathy (principal); M79.7 Fibromyalgia; M18.0 Bilateral primary osteoarthritis of first carpometacarpal joints; M17.0 Bilateral primary osteoarthritis of knee; M81.0 Age-related osteoporosis without current pathological fracture; I10 Essential (primary) hypertension; E11.9 Type 2 diabetes mellitus without complications; F32.89 Other specified depressive episodes; H34.8322 Tributary (branch) retinal vein occlusion, left eye, stable; Z79.899 Other long term (current) drug therapy; Z85.528 Personal history of other malignant neoplasm of kidney
CPT/HCPCS: 36415; 80053; 85025

== ENCOUNTER → 2020-12-02 09:27 | Outpatient (CLI) | payer MEDICARE, OTHER, SELFPAY ==
[2020-12-02 10:19] LABS: Absolute Lymphocyte Count 1.79 X10^3/uL (0.83-4.51); Absolute Neutrophil Count 4.1 X10^3/uL (2.0-7.7); Basophil# 0.05 X10^3/uL; Basophil% 0.8 % (0-1); Eosinophil# 0.19 X10^3/uL; Hematocrit 35.4 % (37-47); Hemoglobin 11.2 g/dL (12.0-15.0); Lymphocyte # 1.79 X10^3/ul (0.83-4.51); Lymphocyte % 28.1 % (19-41); Mean Corp Hgb Conc 31.6 g/dL (32-36); Mean Corpuscular Hgb 30.8 pg (27.0-32.0); Mean Corpuscular Volume 97.3 fL (81-99); Mean Platelet Vol. 10.6 fl (6.2-12.0); Monocyte# 0.24 X10^3/uL; Monocyte% 3.8 % (0-10); NRBC Flagged by Analyzer 0 % (0-5); Neutrophil % 64.1 % (47-70); Platelet Count 190 K/mm3 (150-450); RBC Distribution Width CV 17.3 % (11.6-14.6); RBC Distribution Width SD 61.9 fl (35.1-43.9); Red Blood Count 3.64 M/mm3 (4.2-5.4); White Blood Count 6.4 K/mm3 (4.4-11.0)
[2020-12-02 10:51] LABS: ALB/GLOB Ratio 0.8 RATIO (0.9-2.4); AST(SGOT) 15 U/L (15-37); Alanine Aminotransfer ALT/SGPT 18 U/L (13-56); Albumin, Serum 3.4 g/dL (3.2-5.0); Alkaline Phosphatase 63 U/L (45-117); Anion Gap 5 (5-15); BUN 29 mg/dL (7-18); BUN/Creat Ratio 34.7 RATIO (10-20); Chloride 108 mmol/L (98-107); Creatinine, Serum 0.84 mg/dL (0.55-1.02); EST Glomerular Filtration Rate 70 mL/min (>60); Est Glom Filt Rate - Afr Amer 85 mL/min (>60); Ferritin 94 ng/mL (8-252); Glucose 108 mg/dL (74-106); Iron 151 ug/dL (50-170); Potassium 4.3 mmol/L (3.5-5.1); Protein, Total 7.4 g/dL (6.4-8.2); Sodium Level 136 mmol/L (136-145)
[2020-12-02 11:34] LABS: Vitamin B12 367 pg/mL (211-911)
== END ==
PROVIDERS: PCP Family Medicine; Referring Provider Internal Medicine Rheumatology; Visit Provider Internal Medicine Rheumatology
DX: D64.9 Anemia, unspecified (principal); M06.4 Inflammatory polyarthropathy; M79.7 Fibromyalgia; M18.0 Bilateral primary osteoarthritis of first carpometacarpal joints; M17.0 Bilateral primary osteoarthritis of knee; I10 Essential (primary) hypertension; E11.9 Type 2 diabetes mellitus without complications; H34.8322 Tributary (branch) retinal vein occlusion, left eye, stable; F41.9 Anxiety disorder, unspecified; Z79.899 Other long term (current) drug therapy; Z85.528 Personal history of other malignant neoplasm of kidney
CPT/HCPCS: 36415; 80053; 82607; 82728; 83540; 83921; 85025

== ENCOUNTER → 2021-02-25 10:28 | Outpatient (CLI) | payer MEDICARE, OTHER, SELFPAY ==
[2021-02-25 12:26] LABS: Absolute Lymphocyte Count 1.83 X10^3/uL (0.83-4.51); Absolute Neutrophil Count 4.9 X10^3/uL (2.0-7.7); Basophil# 0.08 X10^3/uL; Eosinophils% 2.6 % (0-5); Hematocrit 38.5 % (37-47); Hemoglobin 12.4 g/dL (12.0-15.0); Lymphocyte # 1.83 X10^3/ul (0.83-4.51); Mean Corp Hgb Conc 32.2 g/dL (32-36); Mean Corpuscular Hgb 31.9 pg (27.0-32.0); Mean Platelet Vol. 11.3 fl (6.2-12.0); Monocyte# 0.63 X10^3/uL; Monocyte% 8.2 % (0-10); NRBC Flagged by Analyzer 0 % (0-5); Neutrophil # 4.88 X10^3/uL (2.7-7.7); Neutrophil % 63.9 % (47-70); Platelet Count 237 K/mm3 (150-450); RBC Distribution Width CV 15.7 % (11.6-14.6); RBC Distribution Width SD 56.7 fl (35.1-43.9); Red Blood Count 3.89 M/mm3 (4.2-5.4); White Blood Count 7.6 K/mm3 (4.4-11.0)
[2021-02-25 12:40] LABS: ALB/GLOB Ratio 0.9 RATIO (0.9-2.4); AST(SGOT) 19 U/L (15-37); Alanine Aminotransfer ALT/SGPT 27 U/L (13-56); Albumin, Serum 3.6 g/dL (3.2-5.0); Alkaline Phosphatase 70 U/L (45-117); Anion Gap 6 (5-15); BUN 23 mg/dL (7-18); Calcium,Total 9.2 mg/dL (8.5-10.1); Chloride 109 mmol/L (98-107); Creatinine, Serum 0.85 mg/dL (0.55-1.02); EST Glomerular Filtration Rate 68 mL/min (>60); Est Glom Filt Rate - Afr Amer 83 mL/min (>60); Globulin 4.2 g/dL (2.2-4.2); Glucose 149 mg/dL (74-106); Potassium 4.1 mmol/L (3.5-5.1); Protein, Total 7.8 g/dL (6.4-8.2); Sodium Level 143 mmol/L (136-145)
== END ==
PROVIDERS: PCP Family Medicine; Referring Provider Internal Medicine Rheumatology; Visit Provider Internal Medicine Rheumatology
DX: M06.4 Inflammatory polyarthropathy (principal); M79.7 Fibromyalgia; M18.0 Bilateral primary osteoarthritis of first carpometacarpal joints; M17.0 Bilateral primary osteoarthritis of knee; M81.0 Age-related osteoporosis without current pathological fracture; I10 Essential (primary) hypertension; E11.9 Type 2 diabetes mellitus without complications; F32.89 Other specified depressive episodes; Z79.899 Other long term (current) drug therapy
CPT/HCPCS: 36415; 80053; 85025

== ENCOUNTER 2021-05-19 15:08 | Outpatient (CLI) | payer MEDICARE, OTHER, SELFPAY ==
[2021-05-19 17:54] LABS: Absolute Lymphocyte Count 2.24 X10^3/uL (0.83-4.51); Absolute Neutrophil Count 5.3 X10^3/uL (2.0-7.7); Basophil# 0.05 X10^3/uL; Basophil% 0.6 % (0-1); Eosinophil# 0.29 X10^3/uL; Eosinophils% 3.3 % (0-5); Hematocrit 36.8 % (37-47); Hemoglobin 11.6 g/dL (12.0-15.0); Lymphocyte # 2.24 X10^3/ul (0.83-4.51); Lymphocyte % 25.7 % (19-41); Mean Corp Hgb Conc 31.5 g/dL (32-36); Mean Corpuscular Hgb 30.3 pg (27.0-32.0); Mean Corpuscular Volume 96.1 fL (81-99); Mean Platelet Vol. 11.3 fl (6.2-12.0); Monocyte# 0.77 X10^3/uL; Monocyte% 8.8 % (0-10); NRBC Flagged by Analyzer 0 % (0-5); Neutrophil # 5.33 X10^3/uL (2.7-7.7); Neutrophil % 61.3 % (47-70); Platelet Count 293 K/mm3 (150-450); RBC Distribution Width CV 17.4 % (11.6-14.6); Red Blood Count 3.83 M/mm3 (4.2-5.4); White Blood Count 8.7 K/mm3 (4.4-11.0)
[2021-05-19 18:14] LABS: ALB/GLOB Ratio 0.8 RATIO (0.9-2.4); AST(SGOT) 23 U/L (15-37); Alanine Aminotransfer ALT/SGPT 24 U/L (13-56); Albumin, Serum 3.5 g/dL (3.2-5.0); Alkaline Phosphatase 67 U/L (45-117); Anion Gap 4 (5-15); BUN 28 mg/dL (7-18); BUN/Creat Ratio 25.5 RATIO (10-20); Calcium,Total 9.3 mg/dL (8.5-10.1); Chloride 109 mmol/L (98-107); EST Glomerular Filtration Rate 51 mL/min (>60); Est Glom Filt Rate - Afr Amer 62 mL/min (>60); Globulin 4.2 g/dL (2.2-4.2); Glucose 87 mg/dL (74-106); Potassium 4.9 mmol/L (3.5-5.1); Protein, Total 7.7 g/dL (6.4-8.2); Sodium Level 138 mmol/L (136-145)
== END 2021-05-19 23:59 | disposition home or self-care (01) ==
LOC: MTLAB 15:10
PROVIDERS: PCP Family Medicine; Referring Provider Internal Medicine Rheumatology; Visit Provider Internal Medicine Rheumatology
DX: M06.4 Inflammatory polyarthropathy (principal); E11.9 Type 2 diabetes mellitus without complications; M79.7 Fibromyalgia; M18.0 Bilateral primary osteoarthritis of first carpometacarpal joints; M17.0 Bilateral primary osteoarthritis of knee; M81.0 Age-related osteoporosis without current pathological fracture; I10 Essential (primary) hypertension; F32.89 Other specified depressive episodes; H34.8322 Tributary (branch) retinal vein occlusion, left eye, stable; F41.9 Anxiety disorder, unspecified; Z85.528 Personal history of other malignant neoplasm of kidney; Z79.899 Other long term (current) drug therapy
CPT/HCPCS: 36415; 80053; 85025

== ENCOUNTER 2021-06-14 13:53 | Outpatient (CLI) | payer MEDICARE, OTHER, SELFPAY ==
[2021-06-14 16:04] LABS: ALB/GLOB Ratio 0.8 RATIO (0.9-2.4); AST(SGOT) 17 U/L (15-37); Alanine Aminotransfer ALT/SGPT 21 U/L (13-56); Albumin, Serum 3.4 g/dL (3.2-5.0); Alkaline Phosphatase 67 U/L (45-117); Anion Gap 5 (5-15); BUN 24 mg/dL (7-18); BUN/Creat Ratio 27.1 RATIO (10-20); Chloride 113 mmol/L (98-107); Cholesterol 196 mg/dL (200); Creatinine, Serum 0.88 mg/dL (0.55-1.02); EST Glomerular Filtration Rate 66 mL/min (>60); Est Glom Filt Rate - Afr Amer 79 mL/min (>60); Globulin 4.3 g/dL (2.2-4.2); Glucose 95 mg/dL (74-106); High Density Lipoprotein 72 mg/dL; Potassium 5.8 mmol/L (3.5-5.1); Protein, Total 7.7 g/dL (6.4-8.2); Sodium Level 139 mmol/L (136-145); Triglycerides 128 mg/dL; Very Low Density Lipoprotein 26 mg/dL (5-40)
== END 2021-06-14 23:59 | disposition home or self-care (01) ==
LOC: MTLAB 13:55
PROVIDERS: PCP Family Medicine; Referring Provider Family Medicine; Visit Provider Family Medicine
DX: M06.9 Rheumatoid arthritis, unspecified (principal); E11.9 Type 2 diabetes mellitus without complications; M79.7 Fibromyalgia; M18.0 Bilateral primary osteoarthritis of first carpometacarpal joints; M17.0 Bilateral primary osteoarthritis of knee; M81.0 Age-related osteoporosis without current pathological fracture; I10 Essential (primary) hypertension; F32.89 Other specified depressive episodes; F41.9 Anxiety disorder, unspecified; H34.8322 Tributary (branch) retinal vein occlusion, left eye, stable; Z79.899 Other long term (current) drug therapy; Z85.528 Personal history of other malignant neoplasm of kidney
CPT/HCPCS: 36415; 80053; 80061

== ENCOUNTER → 2021-09-14 | Outpatient (CLI) | payer MEDICARE, OTHER, SELFPAY ==
[2021-09-14 15:11] LABS: Absolute Lymphocyte Count 2.85 X10^3/uL (0.83-4.51); Absolute Neutrophil Count 4.3 X10^3/uL (2.0-7.7); Basophil# 0.06 X10^3/uL; Basophil% 0.7 % (0-1); Eosinophils% 2.5 % (0-5); Hematocrit 37.8 % (37-47); Hemoglobin 11.8 g/dL (12.0-15.0); Lymphocyte # 2.85 X10^3/ul (0.83-4.51); Lymphocyte % 35.6 % (19-41); Mean Corp Hgb Conc 31.2 g/dL (32-36); Mean Corpuscular Hgb 30.8 pg (27.0-32.0); Mean Corpuscular Volume 98.7 fL (81-99); Mean Platelet Vol. 11.1 fl (6.2-12.0); Monocyte# 0.61 X10^3/uL; Monocyte% 7.6 % (0-10); NRBC Flagged by Analyzer 0 % (0-5); Neutrophil # 4.26 X10^3/uL (2.7-7.7); Neutrophil % 53.2 % (47-70); Platelet Count 221 K/mm3 (150-450); RBC Distribution Width CV 14.5 % (11.6-14.6); RBC Distribution Width SD 52.2 fl (35.1-43.9); Red Blood Count 3.83 M/mm3 (4.2-5.4)
[2021-09-14 15:51] LABS: ALB/GLOB Ratio 0.9 RATIO (0.9-2.4); AST(SGOT) 19 U/L (15-37); Alanine Aminotransfer ALT/SGPT 22 U/L (13-56); Albumin, Serum 3.5 g/dL (3.2-5.0); Alkaline Phosphatase 63 U/L (45-117); Anion Gap 4 (5-15); BUN 27 mg/dL (7-18); BUN/Creat Ratio 29.1 RATIO (10-20); Chloride 110 mmol/L (98-107); Creatinine, Serum 0.93 mg/dL (0.55-1.02); EST Glomerular Filtration Rate 62 mL/min (>60); Est Glom Filt Rate - Afr Amer 75 mL/min (>60); Globulin 4.1 g/dL (2.2-4.2); Glucose 134 mg/dL (74-106); Potassium 4.9 mmol/L (3.5-5.1); Protein, Total 7.6 g/dL (6.4-8.2); Sodium Level 138 mmol/L (136-145)
== END | disposition home or self-care (01) ==
LOC: MTLAB 11:48
PROVIDERS: PCP Family Medicine; Referring Provider Internal Medicine Rheumatology; Visit Provider Internal Medicine Rheumatology
DX: M06.4 Inflammatory polyarthropathy (principal); E11.9 Type 2 diabetes mellitus without complications; M79.7 Fibromyalgia; M18.0 Bilateral primary osteoarthritis of first carpometacarpal joints; M17.0 Bilateral primary osteoarthritis of knee; M81.0 Age-related osteoporosis without current pathological fracture; I10 Essential (primary) hypertension; H34.8322 Tributary (branch) retinal vein occlusion, left eye, stable; F32.89 Other specified depressive episodes; F41.9 Anxiety disorder, unspecified; Z85.528 Personal history of other malignant neoplasm of kidney; Z79.899 Other long term (current) drug therapy
CPT/HCPCS: 36415; 80053; 85025

== ENCOUNTER → 2021-12-21 | Outpatient (CLI) | payer MEDICARE, OTHER, SELFPAY ==
[2021-12-21 15:35] LABS: Absolute Lymphocyte Count 2.23 X10^3/uL (0.83-4.51); Basophil# 0.06 X10^3/uL; Basophil% 0.7 % (0-1); Eosinophil# 0.25 X10^3/uL; Eosinophils% 3.1 % (0-5); Hematocrit 32.3 % (37-47); Hemoglobin 10.1 g/dL (12.0-15.0); Lymphocyte # 2.23 X10^3/ul (0.83-4.51); Lymphocyte % 27.5 % (19-41); Mean Corp Hgb Conc 31.3 g/dL (32-36); Mean Corpuscular Hgb 30.5 pg (27.0-32.0); Mean Corpuscular Volume 97.6 fL (81-99); Mean Platelet Vol. 11.6 fl (6.2-12.0); Monocyte# 0.54 X10^3/uL; Monocyte% 6.7 % (0-10); NRBC Flagged by Analyzer 0 % (0-5); Neutrophil # 4.98 X10^3/uL (2.7-7.7); Neutrophil % 61.4 % (47-70); Platelet Count 189 K/mm3 (150-450); RBC Distribution Width CV 16.6 % (11.6-14.6); RBC Distribution Width SD 59.4 fl (35.1-43.9); Red Blood Count 3.31 M/mm3 (4.2-5.4); White Blood Count 8.1 K/mm3 (4.4-11.0)
[2021-12-21 16:17] LABS: ALB/GLOB Ratio 0.9 RATIO (0.9-2.4); AST(SGOT) 18 U/L (15-37); Alanine Aminotransfer ALT/SGPT 22 U/L (13-56); Albumin, Serum 3.2 g/dL (3.2-5.0); Alkaline Phosphatase 55 U/L (45-117); Anion Gap 8 (5-15); BUN 23 mg/dL (7-18); BUN/Creat Ratio 31.7 RATIO (10-20); Chloride 111 mmol/L (98-107); Creatinine, Serum 0.73 mg/dL (0.55-1.02); EST Glomerular Filtration Rate 82 mL/min (>60); Est Glom Filt Rate - Afr Amer 99 mL/min (>60); Globulin 3.5 g/dL (2.2-4.2); Glucose 152 mg/dL (74-106); Potassium 3.7 mmol/L (3.5-5.1); Protein, Total 6.7 g/dL (6.4-8.2); Sodium Level 144 mmol/L (136-145)
== END | disposition home or self-care (01) ==
PROVIDERS: PCP Family Medicine; Referring Provider Internal Medicine Rheumatology; Visit Provider Internal Medicine Rheumatology
DX: M06.4 Inflammatory polyarthropathy (principal); E11.9 Type 2 diabetes mellitus without complications; M79.7 Fibromyalgia; M18.0 Bilateral primary osteoarthritis of first carpometacarpal joints; M17.0 Bilateral primary osteoarthritis of knee; M81.0 Age-related osteoporosis without current pathological fracture; I10 Essential (primary) hypertension; F32.89 Other specified depressive episodes; F41.9 Anxiety disorder, unspecified; H34.8322 Tributary (branch) retinal vein occlusion, left eye, stable; Z79.899 Other long term (current) drug therapy; Z85.528 Personal history of other malignant neoplasm of kidney
CPT/HCPCS: 36415; 80053; 85025

== ENCOUNTER 2022-04-07 10:00 | Outpatient (RCR) | payer MEDICARE, OTHER, SELFPAY ==
[2022-03-24 10:52] VITALS: BP 139/82; PULSE 65; RESP 22; TEMP 36.1; BMI 42.0
--- NOTE | 2022-03-24 13:49 | PCM.WC.HP ---
History of Present Illness Date of Service: 03/24/22 Chief Complaint: nonhealing traumatic wound to left sellers, edema, ulcers of right sellers, right second toe and left great toe History of Wound: Arleen is here for evaluation and treatment of a nonhealing wound to her left sellers which occurred on 02/08/22 and also has developed increased edema and ulcers to bilateral LE and 2 ulcers of her toes that she noticed last week. The left sellers occurred when she was working in her yard and cut her left lower leg on a cart. She went to ER and 7 sutures were placed. She then started to have a reaction to the Betadine used to clean her skin and was seen by her PCP on 02/20/22 for suture removal. The area was red with some sloughing of the skin around the sutures and there was drainage and redness but she was just finishing up antibiotic treatment with cephalexin. She used antibiotic ointment and gauze and follows up a week later for recheck and the wound had large amount of slough and heavy drainage. Was referred for treatment to wound center but due to holidays and weather and her own traveling she was unable to be seen until 03/24/22. Over the time period since her referral she continued to have edema and in the past week she has had blisters which have been draining bilaterally and also notes open wounds to her right second toe and left great toe plantar that bled last week. She has not applied anything to her right leg or to the toe wounds/ulcers but has been using an ABD pad to her left sellers wound and had treated it with calcium alginate for 2 weeks after she was seen on 02/27/22 but ran out of the product. She has been wrapping the left leg with an NANCI wrap. Her most recent A1C was 6.4% in 2021. She is not currently taking any diuretics. She is unable to don compression stockings due to arthritis in her hands and back. She has chronic lower extremity edema with intermittent ulcers which have come and gone in the past. She denies fever or chills, increased drainage or erythema. [facility] Medical History (Updated 03/24/22 @ 14:[address] Scarlet Elizalde DO) Diabetes type 2, controlled Fibromyalgia HTN (hypertension) Peripheral neuropathy Renal cancer Home Medications alogliptin 25 mg-pioglitazone 45 mg tablet (Oseni) 1 ea PO DAILY 01/21/14 [History Last Taken 03/20/17] cyclobenzaprine 10 mg tablet 5 mg PO TID PRN PRN Pain 01/21/14 [History Last Taken Unknown] glucosamine 750 [id number] no1 644 mg-C 30 mg-liliana 1 mg tablet (Osteo Bi-Flex Triple Strength) 1 ea PO DAILY 01/21/14 [History Last Taken 03/20/17] metformin 1,000 mg tablet 1,000 mg PO BIDCM 01/21/14 [History Last Taken 03/20/17] sertraline 100 mg tablet 200 mg PO DAILY 01/21/14 [History Last Taken 03/20/17] cholecalciferol (vitamin D3) 25 mcg (1,000 unit) tablet (Vitamin D3) 1,000 unit PO BID 09/23/14 [History Last Taken 03/20/17] lisinopril 40 mg tablet 40 mg PO DAILY 10/08/15 [History Last Taken 03/20/17] prednisone 10 mg tablet 10 mg PO DAILY 10/08/15 [History Last Taken Unknown] ascorbic acid (vitamin C) 1,000 mg tablet (Vitamin C) 1,000 mg PO DAILY 03/20/17 [History Last Taken 03/20/17] hydrocodone-acetaminophen 5-325mg 5mg-325mg 1 - 2 tab PO Q6H PRN PRN Pain #8 tabs 03/20/17 [Rx Last Taken Unknown] hydrocodone-acetaminophen 5-325mg 5mg-325mg 1 tab PO Q6H PRN PRN Pain 3 days #10 tabs 09/10/17 [Rx Last Taken Unknown] Allergy/AdvReac Type Severity Reaction Status Date / Time povidone-iodine Allergy NEEDS Verified 03/24/22 11:30 [From Betadine] FOLLOW-UP Sulfa (Sulfonamide Allergy Itching Verified 03/24/22 11:30 Antibiotics) suture Allergy NEEDS Verified 03/24/22 11:30 FOLLOW-UP neoprene Allergy Itching Uncoded 09/10/17 16:24 Surgical History (Updated 03/24/22 @ 14:[address] Scarlet Elizalde, DO) H/O right nephrectomy History of appendectomy History of cataract removal with insertion of prosthetic lens History of cholecystectomy History of tonsillectomy and adenoidectomy S/P arthroscopic surgery of right knee Social History Smoking Status: Never smoker ROS Constitutional Constitutional: Denies chills, fatigue or fever(s) Eyes Eyes: Denies blurry vision, change in vision or loss of vision ENT HEENT: Denies dysphagia, hearing loss or sore throat Cardiovascular Cardiovascular: Denies chest pain, edema or palpitations Respiratory/Chest Respiratory/Chest: Denies dry cough, dyspnea, dyspnea on exertion, productive cough or wheezing Gastrointestinal Gastrointestinal: Denies diarrhea, nausea or vomiting Genitourinary Genitourinary: Denies dysuria or polyuria Musculoskeletal Musculoskeletal: Denies arthralgias, joint stiffness or muscle weakness Integumentary Integumentary: Reports erythema and wounds Neurologic Neurologic: Denies dizziness, memory loss or weakness Psychiatric Psychiatric: Denies homicidal ideation or suicidal ideation Endocrine Endocrinology: Denies polydipsia, polyphagia or polyuria Hematologic/Lymphatic Hematologic/Lymphatic: Denies easy bleeding or easy bruising Allergic/Immunologic Allergic/Immunologic: Denies throat swelling, tongue swelling or urticaria Vital Signs Vital Signs Vital Signs: 03/24/22 10:52 Temperature 97 F L Temperature Source Temporal Pulse Rate 65 Respiratory Rate 22 H Blood Pressure 139/82 H Blood Pressure Mean 101 Blood Pressure Source Monitor Weight Weight: 104.355 kg Body Mass Index (BMI) 42.0 Physical Exam Const alert, oriented x3 and no apparent distress General Appearance: cooperative and comfortable Nutritional Appearance: morbidly obese HEENT normocephalic and head/scalp atraumatic Resp normal respiratory effort Effort and Inspection: able to speak in complete sentences Cardio regular rate and regular rhythm Extremity General Extremity: edema bilateral lower extremity Details: moderate Skin General Skin Exam: venous stasis and dermatitis Wounds: wounds noted Wound Narrative: as in clinical panel Psych mental status grossly normal, thought process normal, cooperative and affect normal Debridement Note Debridement Note Wound debrided: left sellers Laterality: Left Type of Debridement: Excisional debridement Anesthesia Used: 4% Lidocaine Solution and 5% Lidocaine Gel Depth: Down to and including healthy tissue and in the subcutaneous layer Percentage of wound debrided: 100 Instrument Used: 3mm curette Tissue Removed: Yellow slough, devitalized tissue Severity: Fat Layer Exposed Amount of bleeding with debridement: Mild Bleeding Controlled with: Compression and gauze Patient tolerated procedure: Patient tolerated procedure well Post-Debridement Measurements and Additional Note: Post-Debridement Measurements/Treatment STEPHANIE - Nurse 1 - General Ulcer Assessment Start: 03/24/22 10:52 Freq: Status: Active Protocol: [facility] Activity Type Activity Date Activity User E-sign Co-sign Detail Recorded Client Recorded Date Recorded By Document 03/24/22 10:52 DL [id number] 03/24/22 11:28 DL 03/24/22 10:52 WC - Today's Visit Information Type of service Initial Visit Arrival Mode Ambulatory,Cane Transfer Assistance None Patient Identification Verified (Name & Yes ) Patient Requires Transmission-Based No Precautions Finger Stick Blood Sugar(mg/dl) (if not checked indicated): Blood Sugar Stated by Patient Height and Weight Height 5 ft 2 in Weight 104.355 kg Weight in Pounds 230.1 lbs Body Mass Index (BMI) 42.0 BMI Classification Obese BSA - Marleen 2.03 Vital Signs Temperature (97.8 F-99.1 F) 97 F L Temperature Source Temporal Pulse Rate (60-100) 65 Pulse Location Monitor Respiratory Rate (12-18) 22 H Respiratory rate source Observation Blood Pressure (90/60-120/80) 139/82 H Blood Pressure Mean 101 Source Monitor Pain Scale: 0-10 Numeric Is Patient Pain Free? Yes Lower Extremity Assessment/ Foot Assessment/ Toe Nail Assessment Left -Posterior Tibial Palpable No -Posterior Tibial Doppler Monophasic -Dorsalis Pedis Palpable No -Dorsalis Pedis Doppler Monophasic -Extremity Color Dusky, Hyperpigmented, Hemosiderin -Hair Growth on Legs No -Hair Growth on Toes No -Temperature of Extremity Cool -Capillary Refill Greater than 3 Seconds -Dependent Rubor No -Blanched when Elevated No -Lipodermatosclerosis No -Other Deformity No -Prior Foot Ulcer No -Charcot Joint No -Prior Amputation No -Thick Yes -Discolored Yes -Deformed Yes -Improper Length & Hygeine Yes Right -Posterior Tibial Palpable No -Posterior Tibial Doppler Multiphasic -Dorsalis Pedis Palpable No -Dorsalis Pedis Doppler Multiphasic -Extremity Color Dusky, Hyperpigmented, Hemosiderin -Hair Growth on Legs No -Hair Growth on Toes No -Temperature of Extremity Cool -Capillary Refill Greater than 3 Seconds -Dependent Rubor No -Blanched when Elevated No -Lipodermatosclerosis No -Other Deformity No -Prior Foot Ulcer No -Charcot Joint No -Prior Amputation No -Thick Yes -Discolored Yes -Deformed Yes -Improper Length & Hygeine Yes Neuropathy Assessment Feet - Top Side and Bottom <Entered> (a) Communication Assessment Preferred language Citizen Of [place] Cutter Operator Required No Able to Read Yes Able to Write Yes Communication Tools None Right Hearing Abillity Normal Left Hearing Abillity Normal Visual Assistive Devices Glasses Teaching Assessment Preferences Verbal,Written, Demonstration Barriers to Learning None Readiness To Learn Good Willingness to Engage in Self Management Med Activies Readiness to Engage in Self Management Med Activities Anxiety Level Calm Cooperation Cooperative Perception Coherent Interest in Health Problem Uninterested Education Importance Acknowledges Need Does Patient Smoke tobacco or other No substances Smoking Status Never smoker Is Patient Diabetic Yes Functional Assessment Recent Decline in Ability to Perform Denies Any Declines Assistive Device With Patient Yes List Device(s) with Patient cane Culture/Protestant/Sheet [employer]inter Cultural/Protestant Needs that may affect No Treatment Plan Would you allow our hospital medical psychotherapist to No meet you for the purpose of spiritual/ emotional support? Sheet Fed Printer to contact place of christian No Teaching: Wound Center Compression Wraps & Stockings -Person Taught Patient Dressing Your Wound -Person Taught Patient Discharge Instructions -Person Taught Patient *Welcome to the Wound Center -Person Taught Patient (a) 1 - + WC - Nurse 1 - General Ulcer Measurement Start: 03/24/22 10:52 Freq: Status: Active Protocol: Activity Type Activity Date Activity User E-sign Co-sign Detail Recorded Client Recorded Date Recorded By Document 03/24/22 10:52 DL [id number] 03/24/22 11:28 DL 03/24/22 10:52 Wound Center Nurse 1 #4 R 2nd toe -Current Size (cm) - Length 0.5 -Current Size (cm) - Width 0.5 -Current Size (cm) - Depth 0.1 -Total Square Cm 0.25 -Photo Taken Yes -Exudate Amt Medium -Exudate Type Serosanguineous -Wound Margin Distinct, Outline Attached -Granulation Amt Large (67-100%) -Granulation Quality Red -Necrosis Amt Small (1-33%) -Necrotic Tissue Type Adherent Slough -Structure Exposed N/A -Texture (Nena-wound Skin Appearance) Scarring -Moisture (Nena-wound Skin Appearance) Maceration, Weeping -Color (Nena-wound Skin Appearance) Ecchymosis, Hemosiderin Staining -Temperature (Nena-wound Skin No Abnormality Appearance) (Pt Warm) -Tenderness on Palpation (Nena-wound No Skin Appearance) -Ulcer Cleansing Soap and Water -Foul Odor after Cleansing No -Anesthetic Used 5% Lidocaine Gel #3 R Sellers Cluster -Current Size (cm) - Length 18.2 -Current Size (cm) - Width 9 -Current Size (cm) - Depth 0.1 -Total Square Cm 163.8 -Photo Taken Yes -Exudate Amt Large -Exudate Type Serosanguineous -Wound Margin Indistinct, Non -Visible -Granulation Amt Large (67-100%) -Granulation Quality [place] -Necrosis Amt Small (1-33%) -Necrotic Tissue Type Adherent Slough -Structure Exposed N/A -Texture (Nena-wound Skin Appearance) Localized Edema ,Scarring -Moisture (Nena-wound Skin Appearance) Weeping -Color (Nena-wound Skin Appearance) Hemosiderin Staining -Temperature (Nena-wound Skin No Abnormality Appearance) (Pt Warm) -Tenderness on Palpation (Nena-wound No Skin Appearance) -Ulcer Cleansing Soap and Water -Foul Odor after Cleansing No -Anesthetic Used 4% Lidocaine Solution #2 L Grt Toe Plantar -Current Size (cm) - Length 0.7 -Current Size (cm) - Width 0.5 -Current Size (cm) - Depth 0.1 -Total Square Cm 0.35 -Photo Taken Yes -Classification - Thickness Full Thickness without Exposed Support Structure -Exudate Amt Small -Exudate Type Serosanguineous -Wound Margin Distinct, Outline Attached -Granulation Amt None Present (0 %) -Necrosis Amt Large (67-100%) -Necrotic Tissue Type Adherent Slough -Structure Exposed N/A -Texture (Nena-wound Skin Appearance) Callus,Scarring -Moisture (Nena-wound Skin Appearance) Dry/Scaly -Color (Nena-wound Skin Appearance) No Abnormality -Temperature (Nena-wound Skin No Abnormality Appearance) (Pt Warm) -Tenderness on Palpation (Nena-wound No Skin Appearance) -Ulcer Cleansing Soap and Water -Foul Odor after Cleansing No -Anesthetic Used 5% Lidocaine Gel #1 left Sellers -Current Size (cm) - Length 0.8 -Current Size (cm) - Width 2.5 -Current Size (cm) - Depth 0.4 -Total Square Cm 2.00 -Photo Taken Yes -Exudate Amt Large -Exudate Type Serosanguineous -Wound Margin Distinct, Outline Attached -Granulation Amt None Present (0 %) -Necrosis Amt Large (67-100%) -Necrotic Tissue Type Adherent Slough -Structure Exposed N/A -Texture (Nena-wound Skin Appearance) Localized Edema ,Scarring -Moisture (Nena-wound Skin Appearance) Weeping -Color (Nena-wound Skin Appearance) Hemosiderin Staining -Temperature (Nena-wound Skin No Abnormality Appearance) (Pt Warm) -Tenderness on Palpation (Nena-wound No Skin Appearance) -Ulcer Cleansing Not Cleansed -Foul Odor after Cleansing No -Anesthetic Used 5% Lidocaine Gel Right Calf (cm) 46 Right Ankle (cm) 24.5 Left Calf (cm) 45.3 Left Ankle (cm) 25.5 WC - Nurse 2 - General Ulcer CM Notes Start: 03/24/22 10:52 Freq: Status: Active Protocol: Activity Type Activity Date Activity User E-sign Co-sign Detail Recorded Client Recorded Date Recorded By Document 03/24/22 12:08 MW [id number] 03/24/22 12:29 MW 03/24/22 12:08 Wound Center Nurse 2 #4 R 2nd toe -Time 12:12 -Correct Patient Yes -Correct Side, Site, Position Yes -Correct Procedure Yes -Procedure Performed Yes -Type of Procedure Debridement -Clinical Debridement Subcutaneous -Tissue Removed Subcutaneous -Post Debridement (cm) - Length 0.4 -Post Debridement (cm) - Width 0.5 -Post Debridement (cm) - Depth 0.1 -Total Square (Post) (cm) 0.20 -Area of Debridement (cm) - Length 0.4 -Area of Debridement (cm) - Width 0.5 -Total Square (Area) (cm) 0.20 -Tunneling No -Undermining/Tunneling No -Circular Undermining No -Wound/Ulcer Outcome Not Healed -Ulcer Cleansing Rinsed/ Irrigated with Saline -Foul Odor after Cleansing No -Bioengineered Tissue No -Bleeding Controlled with Pressure -Treatment Response Procedure Tolerated Well -Offloading No -Debridement - Subq, 1st 20sq cm Yes -Debridement, SubQ, ea addt'l 20sq cm 1 or part thereof #3 R Sellers Cluster -Time 12:13 -Correct Patient Yes -Correct Side, Site, Position Yes -Procedure Performed Yes -Type of Procedure Debridement -Clinical Debridement Subcutaneous -Tissue Removed Subcutaneous -Post Debridement (cm) - Length 7.0 -Post Debridement (cm) - Width 3.0 -Post Debridement (cm) - Depth 0.1 -Total Square (Post) (cm) 21.00 -Area of Debridement (cm) - Length 7.0 -Area of Debridement (cm) - Width 3.0 -Total Square (Area) (cm) 21.00 -Tunneling No -Undermining/Tunneling No -Circular Undermining No -Wound/Ulcer Outcome Not Healed -Ulcer Cleansing Rinsed/ Irrigated with Saline -Foul Odor after Cleansing No -Bioengineered Tissue No -Bleeding Controlled with Pressure -Treatment Response Procedure Tolerated Well -Offloading No -Debridement - Subq, 1st 20sq cm No #2 L Grt Toe Plantar -Time 12:13 -Correct Patient Yes -Correct Side, Site, Position Yes -Correct Procedure Yes -Type of Procedure Debridement -Clinical Debridement Subcutaneous -Tissue Removed Subcutaneous -Post Debridement (cm) - Length 0.7 -Post Debridement (cm) - Width 0.5 -Post Debridement (cm) - Depth 0.1 -Total Square (Post) (cm) 0.35 -Area of Debridement (cm) - Length 0.7 -Area of Debridement (cm) - Width 0.5 -Total Square (Area) (cm) 0.35 -Tunneling No -Undermining/Tunneling No -Circular Undermining No -Wound/Ulcer Outcome Not Healed -Ulcer Cleansing Rinsed/ Irrigated with Saline -Foul Odor after Cleansing No -Bioengineered Tissue No -Bleeding Controlled with Pressure -Treatment Response Procedure Tolerated Well -Offloading No -Debridement - Subq, 1st 20sq cm No #1 left Sellers -Time 12:13 -Correct Patient Yes -Correct Side, Site, Position Yes -Correct Procedure Yes -Procedure Performed Yes -Type of Procedure Debridement -Clinical Debridement Subcutaneous -Tissue Removed Subcutaneous -Post Debridement (cm) - Length 1.0 -Post Debridement (cm) - Width 3.0 -Post Debridement (cm) - Depth 0.3 -Total Square (Post) (cm) 3.00 -Area of Debridement (cm) - Length 1.0 -Area of Debridement (cm) - Width 3.0 -Total Square (Area) (cm) 3.00 -Tunneling No -Undermining/Tunneling No -Circular Undermining No -Wound/Ulcer Outcome Not Healed -Ulcer Cleansing Rinsed/ Irrigated with Saline -Foul Odor after Cleansing No -Bioengineered Tissue No -Bleeding Controlled with Pressure -Treatment Response Procedure Tolerated Well -Offloading No -Debridement - Subq, 1st 20sq cm No Pain Scale: 0-10 Numeric Is Patient Pain Free? Yes - Nurse 3 - General Ulcer D/C NN Start: 03/24/22 10:52 Freq: Status: Active Protocol: Activity Type Activity Date Activity User E-sign Co-sign Detail Recorded Client Recorded Date Recorded By Document 03/24/22 12:35 KEHINDE [id number] 03/24/22 12:38 RB 03/24/22 12:35 Wound Care Nurse 3 #4 R 2nd toe -Ulcer Cleansing Wound Cleanser -Primary Dressing Applied Promogran -Primary Dressing Covered/Secured with Dry Gauze -Promogran 1 #2 L Grt Toe Plantar -Ulcer Cleansing Rinsed/ Irrigated with Saline -Other Dressing promogran -Primary Dressing Covered/Secured with Dry Gauze #1 left Sellers -Ulcer Cleansing Rinsed/ Irrigated with Saline -Other Dressing promogran -Primary Dressing Covered/Secured with Dry Gauze bilateral -Multi-Layered Wrap Application Unna Boot - Bilateral ($) -Unna Boots (Bilat) ($) 2 Pain Scale: 0-10 Numeric Is Patient Pain Free? Yes - Visit Discharge Discharge Condition Stable Ambulatory Status Ambulatory,Cane Transportation Private Auto Medication Reconcilliation completed & No provided to patient/care provider Clinical Summary of Care Provided Yes Additional Wound Wound debrided: right second toe Laterality: Right Wound Grade/Stage: Covarrubias grade 1 Type of Debridement: Excisional debridement Anesthesia Used: 4% Lidocaine Solution and 5% Lidocaine Gel Depth: Down to and including healthy tissue and in the subcutaneous layer Percentage of wound debrided: 100 Instrument Used: 3mm curette Tissue Removed: Yellow slough, devitalized tissue Severity: Fat Layer Exposed Amount of bleeding with debridement: Mild Bleeding Controlled with: Compression and gauze Patient tolerated procedure: Patient tolerated procedure well Additional Wound Wound debrided: Right sellers Laterality: Right Type of Debridement: Selective debridement Anesthesia Used: 4% Lidocaine Solution and 5% Lidocaine Gel Depth: Down to and including healthy tissue and in the subcutaneous layer Percentage of wound debrided: 100 Instrument Used: - (gauze) Tissue Removed: Yellow slough, devitalized tissue Severity: Fat Layer Exposed Amount of bleeding with debridement: Mild Bleeding Controlled with: Compression and gauze Patient tolerated procedure: Patient tolerated procedure well Additional Wound Wound debrided: Left great toe plantar Laterality: Left Wound Grade/Stage: Covarrubias Grade 1 Type of Debridement: Excisional debridement Anesthesia Used: 4% Lidocaine Solution and 5% Lidocaine Gel Depth: Down to and including healthy tissue and in the subcutaneous layer Percentage of wound debrided: 100 Instrument Used: 3mm curette Tissue Removed: Yellow slough, devitalized tissue Severity: Fat Layer Exposed Amount of bleeding with debridement: Mild Bleeding Controlled with: Compression and gauze Patient tolerated procedure: Patient tolerated procedure well Assessment/Plan Assessment/Plan (1) Diabetes type 2, controlled: CODE(S): E11.9 - Type 2 diabetes mellitus without complications (2) 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: CODE(S): I83.019 - Varicose veins of right lower extremity with ulcer of unspecified site; I83.029 - Varicose veins of left lower extremity with ulcer of unspecified site; L97.919 - Non-pressure chronic ulcer of unspecified part of right lower leg with unspecified severity; L97.929 - Non-pressure chronic ulcer of unspecified part of left lower leg with unspecified severity (3) Lymphedema associated with obesity: CODE(S): I89.0 - Lymphedema, not elsewhere classified; E66.9 - Obesity, unspecified (4) Venous insufficiency of both lower extremities: CODE(S): I87.2 - Venous insufficiency (chronic) (peripheral) (5) Skin ulcer of left great toe with fat layer exposed: CODE(S): L97.522 - Non-pressure chronic ulcer of other part of left foot with fat layer exposed (6) Ulcer of left great toe due to diabetes mellitus: CODE(S): E11.621 - Type 2 diabetes mellitus with foot ulcer; L97.529 - Non-pressure chronic ulcer of other part of left foot with unspecified severity (7) Ulcer of right second toe with fat layer exposed: CODE(S): L97.512 - Non-pressure chronic ulcer of other part of right foot with fat layer exposed (8) 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 At home wound-care instructions: UNNA boot compression applied to both legs today and Promogran applied to ulcers of toes and to left sellers wound. Will change UNNA boots and toe dressings on Sunday. Keep dressings clean and dry. Off-loading: The patient was instructed to avoid pressure and friction on the affected areas. Reposition every 2 hours at minimum. Avoid prolonged standing and/or dangling of legs. When seated, feet should be elevated at chest level. Frequent ambulation is encouraged. Diet: Patient encouraged to increase protein intake while taking caution to avoid high carbohydrate and/or sugar intake. Labs/cultures/imaging: No cultures taken as there does not seem to be acute infection. Follow-up: Return in 1 week for wound care follow up. Return sooner or report to the emergency room should symptoms worsen, or new symptoms arise. Note: [employer] speech recognition liquor department manager software was used to create portions of this document. Sound-alike and misspelled words, as well as other liquor department manager errors may be contained in the documentation.
[2022-03-28 10:43] VITALS: BP 193/94; PULSE 73; RESP 18; TEMP 35.8; BMI 42.0
[2022-03-31 10:12] VITALS: BP 188/80; PULSE 66; RESP 18; TEMP 35.3; BMI 42.0
--- NOTE | 2022-03-31 14:17 | PCM.WC.PN ---
History of Present Illness Date of Service: 03/31/22 Chief Complaint: nonhealing traumatic wound to left sellers, edema, ulcers of right sellers, right second toe and left great toe History of Wound: Arleen is here for evaluation and treatment of a nonhealing wound to her left sellers which occurred on 02/08/22 and also has developed increased edema and ulcers to bilateral LE and 2 ulcers of her toes that she noticed last week. The left sellers occurred when she was working in her yard and cut her left lower leg on a cart. She went to ER and 7 sutures were placed. She then started to have a reaction to the Betadine used to clean her skin and was seen by her PCP on 02/20/22 for suture removal. The area was red with some sloughing of the skin around the sutures and there was drainage and redness but she was just finishing up antibiotic treatment with cephalexin. She used antibiotic ointment and gauze and follows up a week later for recheck and the wound had large amount of slough and heavy drainage. Was referred for treatment to wound center but due to holidays and weather and her own traveling she was unable to be seen until 03/24/22. Over the time period since her referral she continued to have edema and in the past week she has had blisters which have been draining bilaterally and also notes open wounds to her right second toe and left great toe plantar that bled last week. She has not applied anything to her right leg or to the toe wounds/ulcers but has been using an ABD pad to her left sellers wound and had treated it with calcium alginate for 2 weeks after she was seen on 02/27/22 but ran out of the product. She has been wrapping the left leg with an NANCI wrap. Her most recent A1C was 6.4% in 2021. She is not currently taking any diuretics. She is unable to don compression stockings due to arthritis in her hands and back. She has chronic lower extremity edema with intermittent ulcers which have come and gone in the past. She denies fever or chills, increased drainage or erythema. Subjective Subjective Arleen returns today for follow up of multiple ulcers/wounds that are present on both legs and toes. She tolerated treatment with UNNA boots very well and has had a huge improvement in the edema and size of her legs in just 1 week. The ulcers of the right lower leg have healed and the right toe is healed. The left sellers and toe have improved in size. She denies any fever, chills, increased erythema, drainage or pain. Objective Data Objective Data Vital Signs: Vital Signs Temp Pulse Resp BP O2 Del Method 95.5 F L 66 18 188/80 H Room Air 03/31/22 10:12 03/31/22 10:12 03/31/22 10:12 03/31/22 10:12 03/28/22 10:43 Oxygen Delivery Method Room Air Weight: 104.355 kg Body Mass Index (BMI) 42.0 Physical Exam Const alert, oriented x3 and no apparent distress General Appearance: cooperative and comfortable Nutritional Appearance: morbidly obese HEENT normocephalic and head/scalp atraumatic Resp normal respiratory effort Effort and Inspection: able to speak in complete sentences Cardio regular rate and regular rhythm Extremity General Extremity: edema bilateral lower extremity Details: moderate Skin General Skin Exam: venous stasis and dermatitis Wounds: wounds noted Wound Narrative: as in clinical panel Psych mental status grossly normal, thought process normal, cooperative and affect normal Debridement Note Debridement Note Wound debrided: left sellers Laterality: Left Type of Debridement: Excisional debridement Anesthesia Used: 4% Lidocaine Solution and 5% Lidocaine Gel Depth: Down to and including healthy tissue and in the subcutaneous layer Percentage of wound debrided: 100 Instrument Used: 3mm curette Tissue Removed: Yellow slough, devitalized tissue Severity: Fat Layer Exposed Amount of bleeding with debridement: Mild Bleeding Controlled with: Compression and gauze Patient tolerated procedure: Patient tolerated procedure well Post-Debridement Measurements and Additional Note: Post-Debridement Measurements/Treatment - Nurse 1 - General Ulcer Assessment Start: 03/24/22 10:52 Freq: Status: Active Protocol: [email or web address] Activity Type Activity Date Activity User E-sign Co-sign Detail Recorded Client Recorded Date Recorded By Document 03/24/22 10:52 DL [id number] 03/24/22 11:28 DL Document 03/28/22 10:43 MW [id number] 03/28/22 10:48 MW Document 03/31/22 10:12 RB [id number] 03/31/22 10:23 RB 03/24/22 03/28/22 03/31/22 10:52 10:43 10:12 - Today's Visit Information Type of service Initial Visit Nurse-only Visit Arrival Mode Ambulatory,Cane Ambulatory Transfer Assistance None None Accompanied by self Patient Identification Verified (Name & Yes Yes ) Patient Requires Transmission-Based No No Precautions Safety Precautions NA Finger Stick Blood Sugar(mg/dl) (if not checked indicated): Blood Sugar Stated by Patient Height and Weight Height 5 ft 2 in Weight 104.355 kg Weight in Pounds 230.1 lbs Body Mass Index (BMI) 42.0 42.0 42.0 BMI Classification Obese Obese Obese BSA - Marleen 2.03 Vital Signs Temperature (97.8 F-99.1 F) 97 F L 96.4 F L 95.5 F L Temperature Source Temporal Temporal Temporal Pulse Rate (60-100) 65 73 66 Pulse Location Monitor Monitor Monitor Respiratory Rate (12-18) 22 H 18 18 Respiratory rate source Observation Observation Observation Oxygen Delivery Method Room Air Blood Pressure (90/60-120/80) 139/82 H 193/94 H 188/80 H Blood Pressure Mean (mm Hg) 101 127 116 Source Monitor Monitor Monitor Position Sitting Semi-Fowlers Blood Pressure Location Left Arm Left Arm History Since Last Visit- (Skip if this is Patient's initial visit) Have you changed medications since your No No last visit? Any new allergies or adverse reactions No No Had a fall/change in ADL's that may No No increase risk of falls Signs or symptoms of abuse and/or No No neglect since last visit Have you been in the hospital since your No No last visit? Has dressing in place as prescribed Yes Yes Has compression in place as prescribed Yes Yes Has offloadiing in place as prescribed N/A No Experienced any changes in pain level or No No management Left Footwear Regular Shoe Right Footwear Regular Shoe Pain Scale: 0-10 Numeric Is Patient Pain Free? Yes Yes Yes Lower Extremity Assessment/ Foot Assessment/ Toe Nail Assessment Left -Posterior Tibial Palpable No -Posterior Tibial Doppler Monophasic -Dorsalis Pedis Palpable No -Dorsalis Pedis Doppler Monophasic -Extremity Color Dusky, Hyperpigmented, Hemosiderin -Hair Growth on Legs No -Hair Growth on Toes No -Temperature of Extremity Cool -Capillary Refill Greater than 3 Seconds -Dependent Rubor No -Blanched when Elevated No -Lipodermatosclerosis No -Other Deformity No -Prior Foot Ulcer No -Charcot Joint No -Prior Amputation No -Thick Yes -Discolored Yes -Deformed Yes -Improper Length & Hygeine Yes Right -Posterior Tibial Palpable No -Posterior Tibial Doppler Multiphasic -Dorsalis Pedis Palpable No -Dorsalis Pedis Doppler Multiphasic -Extremity Color Dusky, Hyperpigmented, Hemosiderin -Hair Growth on Legs No -Hair Growth on Toes No -Temperature of Extremity Cool -Capillary Refill Greater than 3 Seconds -Dependent Rubor No -Blanched when Elevated No -Lipodermatosclerosis No -Other Deformity No -Prior Foot Ulcer No -Charcot Joint No -Prior Amputation No -Thick Yes -Discolored Yes -Deformed Yes -Improper Length & Hygeine Yes Neuropathy Assessment Feet - Top Side and Bottom <Entered> (a) Communication Assessment Preferred language Danish Carpenter Assistant Required No Able to Read Yes Able to Write Yes Communication Tools None Right Hearing Abillity Normal Left Hearing Abillity Normal Visual Assistive Devices Glasses Teaching Assessment Preferences Verbal,Written, Demonstration Barriers to Learning None Readiness To Learn Good Willingness to Engage in Self Management Med Activies Readiness to Engage in Self Management Med Activities Anxiety Level Calm Cooperation Cooperative Perception Coherent Interest in Health Problem Uninterested Education Importance Acknowledges Need Does Patient Smoke tobacco or other No substances Smoking Status Never smoker Is Patient Diabetic Yes Functional Assessment Recent Decline in Ability to Perform Denies Any Declines Assistive Device With Patient Yes List Device(s) with Patient cane Culture/Latter Day/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 Cultural/Latter Day Needs that may affect No Treatment Plan Would you allow our hospital mini lab operator to No meet you for the purpose of spiritual/ emotional support? 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[employer] to contact place of tenriism No Teaching: Wound Center Compression Wraps & Stockings -Person Taught Patient Dressing Your Wound -Person Taught Patient Discharge Instructions -Person Taught Patient *Welcome to the Wound Center -Person Taught Patient (a) 1 - + WC - Nurse 1 - General Ulcer Measurement Start: 03/24/22 10:52 Freq: Status: Active Protocol: Activity Type Activity Date Activity User E-sign Co-sign Detail Recorded Client Recorded Date Recorded By Document 03/24/22 10:52 DL [id number] 03/24/22 11:28 DL Document 03/28/22 10:43 MW [id number] 03/28/22 10:48 MW Document 03/31/22 10:12 RB [id number] 03/31/22 10:23 RB 03/24/22 03/28/22 03/31/22 10:52 10:43 10:12 Wound Center Nurse 1 #4 R 2nd toe -Combined with other wound No -Current Size (cm) - Length 0.5 0.1 -Current Size (cm) - Width 0.5 0.1 -Current Size (cm) - Depth 0.1 0.1 -Total Square Cm 0.25 0.01 -Photo Taken Yes Yes -Tunneling No -Undermining/Tunneling No -Circular Undermining No -Exudate Amt Medium None Present -Exudate Type Serosanguineous -Wound Margin Distinct, Distinct, Outline Outline Attached Attached -Granulation Amt Large (67-100%) Large (67-100%) -Granulation Quality [place] -Slough/Fibrin Yes -Necrosis Amt Small (1-33%) Small (1-33%) -Necrotic Tissue Type Adherent Slough Adherent Slough -Structure Exposed N/A N/A -Texture (Nena-wound Skin Appearance) Scarring No Abnormality, Callus -Moisture (Nena-wound Skin Appearance) Maceration, Assessed Weeping -Color (Nena-wound Skin Appearance) Ecchymosis, Assessed Hemosiderin Staining -Temperature (Nena-wound Skin No Abnormality No Abnormality Appearance) (Pt Warm) (Pt Warm) -Tenderness on Palpation (Nena-wound No No Skin Appearance) -Ulcer Cleansing Soap and Water Wound Cleanser -Foul Odor after Cleansing No No -Anesthetic Used 5% Lidocaine 5% Lidocaine Gel Gel #3 R Sellers Cluster -Combined with other wound No -Current Size (cm) - Length 18.2 0.1 -Current Size (cm) - Width 9 0.1 -Current Size (cm) - Depth 0.1 0.1 -Total Square Cm 163.8 0.01 -Photo Taken Yes Yes -Tunneling No -Undermining/Tunneling No -Circular Undermining No -Exudate Amt Large None Present -Exudate Type Serosanguineous -Wound Margin Indistinct, Non Distinct, -Visible Outline Attached -Granulation Amt Large (67-100%) Large (67-100%) -Granulation Quality [place] -Slough/Fibrin Yes -Necrosis Amt Small (1-33%) Small (1-33%) -Necrotic Tissue Type Adherent Slough Adherent Slough -Structure Exposed N/A N/A -Texture (Nena-wound Skin Appearance) Localized Edema Assessed ,Scarring -Moisture (Nena-wound Skin Appearance) Weeping Assessed -Color (Nena-wound Skin Appearance) Hemosiderin Assessed Staining -Temperature (Nena-wound Skin No Abnormality No Abnormality Appearance) (Pt Warm) (Pt Warm) -Tenderness on Palpation (Nena-wound No No Skin Appearance) -Ulcer Cleansing Soap and Water Wound Cleanser -Foul Odor after Cleansing No No -Anesthetic Used 4% Lidocaine 5% Lidocaine Solution Gel #2 L Grt Toe Plantar -Combined with other wound No -Current Size (cm) - Length 0.7 0.1 -Current Size (cm) - Width 0.5 0.1 -Current Size (cm) - Depth 0.1 0.1 -Total Square Cm 0.35 0.01 -Photo Taken Yes Yes -Tunneling No -Undermining/Tunneling No -Circular Undermining No -Classification - Thickness Full Thickness without Exposed Support Structure -Exudate Amt Small None Present -Exudate Type Serosanguineous -Wound Margin Distinct, Distinct, Outline Outline Attached Attached -Granulation Amt None Present (0 Large (67-100%) %) -Granulation Quality [place] -Slough/Fibrin Yes -Necrosis Amt Large (67-100%) None Present (0 %) -Necrotic Tissue Type Adherent Slough Adherent Slough -Structure Exposed N/A N/A -Texture (Nena-wound Skin Appearance) Callus,Scarring Assessed -Moisture (Nena-wound Skin Appearance) Dry/Scaly Assessed -Color (Nena-wound Skin Appearance) No Abnormality Assessed -Temperature (Nena-wound Skin No Abnormality No Abnormality Appearance) (Pt Warm) (Pt Warm) -Tenderness on Palpation (Nena-wound No No Skin Appearance) -Ulcer Cleansing Soap and Water Wound Cleanser -Foul Odor after Cleansing No No -Anesthetic Used 5% Lidocaine 5% Lidocaine Gel Gel #1 left Sellers -Combined with other wound No -Current Size (cm) - Length 0.8 6 -Current Size (cm) - Width 2.5 1.5 -Current Size (cm) - Depth 0.4 0.2 -Total Square Cm 2.00 9.0 -Photo Taken Yes Yes -Tunneling No -Undermining/Tunneling No -Circular Undermining No -Exudate Amt Large Medium -Exudate Type Serosanguineous Serosanguineous -Wound Margin Distinct, Distinct, Outline Outline Attached Attached -Granulation Amt None Present (0 Medium (34-66%) %) -Granulation Quality [place] -Slough/Fibrin Yes -Necrosis Amt Large (67-100%) Small (1-33%) -Necrotic Tissue Type Adherent Slough Adherent Slough -Structure Exposed N/A N/A -Texture (Nena-wound Skin Appearance) Localized Edema Assessed, ,Scarring Scarring -Moisture (Nena-wound Skin Appearance) Weeping Assessed -Color (Nena-wound Skin Appearance) Hemosiderin Assessed Staining -Temperature (Nena-wound Skin No Abnormality No Abnormality Appearance) (Pt Warm) (Pt Warm) -Tenderness on Palpation (Nena-wound No No Skin Appearance) -Ulcer Cleansing Not Cleansed Wound Cleanser -Foul Odor after Cleansing No No -Anesthetic Used 5% Lidocaine 5% Lidocaine Gel Gel Lower Limb Edema Present Yes Yes Right Calf (cm) 46 35.8 35 Right Ankle (cm) 24.5 23.0 22.2 Left Calf (cm) 45.3 37.0 35.5 Left Ankle (cm) 25.5 23.5 22 WC - Nurse 2 - General Ulcer CM Notes Start: 03/24/22 10:52 Freq: Status: Active Protocol: Activity Type Activity Date Activity User E-sign Co-sign Detail Recorded Client Recorded Date Recorded By Document 03/24/22 12:08 MW [id number] 03/24/22 12:29 MW Document 03/31/22 10:45 MW [id number] 03/31/22 11:00 MW 03/24/22 03/31/22 12:08 10:45 Wound Center Nurse 2 #4 R 2nd toe -Time 12:12 11:00 -Correct Patient Yes Yes -Correct Side, Site, Position Yes Yes -Correct Procedure Yes Yes -Procedure Performed Yes No -Type of Procedure Debridement -Clinical Debridement Subcutaneous -Tissue Removed Subcutaneous -Post Debridement (cm) - Length 0.4 0 -Post Debridement (cm) - Width 0.5 0 -Post Debridement (cm) - Depth 0.1 0 -Total Square (Post) (cm) 0.20 0 -Area of Debridement (cm) - Length 0.4 -Area of Debridement (cm) - Width 0.5 -Total Square (Area) (cm) 0.20 -Tunneling No -Undermining/Tunneling No -Circular Undermining No -Wound/Ulcer Outcome Not Healed Healed- Epithelialized -Ulcer Cleansing Rinsed/ Irrigated with Saline -Foul Odor after Cleansing No -Bioengineered Tissue No -Bleeding Controlled with Pressure -Treatment Response Procedure Tolerated Well -Offloading No -Debridement - Subq, 1st 20sq cm Yes -Debridement, SubQ, ea addt'l 20sq cm 1 or part thereof #3 R Sellers Cluster -Time 12: 10:47 -Correct Patient Yes Yes -Correct Side, Site, Position Yes Yes -Correct Procedure Yes -Procedure Performed Yes No -Type of Procedure Debridement -Clinical Debridement Subcutaneous -Tissue Removed Subcutaneous -Post Debridement (cm) - Length 7.0 0.1 -Post Debridement (cm) - Width 3.0 0.1 -Post Debridement (cm) - Depth 0.1 0.1 -Total Square (Post) (cm) 21.00 0.01 -Area of Debridement (cm) - Length 7.0 -Area of Debridement (cm) - Width 3.0 -Total Square (Area) (cm) 21.00 -Tunneling No No -Undermining/Tunneling No No -Circular Undermining No No -Wound/Ulcer Outcome Not Healed Not Healed -Ulcer Cleansing Rinsed/ Not Cleansed Irrigated with Saline -Foul Odor after Cleansing No -Bioengineered Tissue No -Bleeding Controlled with Pressure -Treatment Response Procedure Tolerated Well -Offloading No -Debridement - Subq, 1st 20sq cm No #2 L Grt Toe Plantar -Time 12: 10:48 -Correct Patient Yes Yes -Correct Side, Site, Position Yes Yes -Correct Procedure Yes Yes -Procedure Performed Yes -Type of Procedure Debridement Debridement -Clinical Debridement Subcutaneous Subcutaneous -Tissue Removed Subcutaneous Subcutaneous -Post Debridement (cm) - Length 0.7 0.5 -Post Debridement (cm) - Width 0.5 0.3 -Post Debridement (cm) - Depth 0.1 0.1 -Total Square (Post) (cm) 0.35 0.15 -Area of Debridement (cm) - Length 0.7 0.5 -Area of Debridement (cm) - Width 0.5 0.3 -Total Square (Area) (cm) 0.35 0.15 -Tunneling No No -Undermining/Tunneling No No -Circular Undermining No No -Wound/Ulcer Outcome Not Healed Not Healed -Ulcer Cleansing Rinsed/ Rinsed/ Irrigated with Irrigated with Saline Saline -Foul Odor after Cleansing No No -Bioengineered Tissue No No -Bleeding Controlled with Pressure Pressure -Treatment Response Procedure Procedure Tolerated Well Tolerated Well -Offloading No No -Debridement - Subq, 1st 20sq cm No No #1 left Sellers -Time 12:13 10:49 -Correct Patient Yes Yes -Correct Side, Site, Position Yes Yes -Correct Procedure Yes Yes -Procedure Performed Yes Yes -Type of Procedure Debridement Debridement -Clinical Debridement Subcutaneous Subcutaneous -Tissue Removed Subcutaneous Subcutaneous -Post Debridement (cm) - Length 1.0 1.0 -Post Debridement (cm) - Width 3.0 1.8 -Post Debridement (cm) - Depth 0.3 0.2 -Total Square (Post) (cm) 3.00 1.80 -Area of Debridement (cm) - Length 1.0 1.0 -Area of Debridement (cm) - Width 3.0 1.8 -Total Square (Area) (cm) 3.00 1.80 -Tunneling No No -Undermining/Tunneling No No -Circular Undermining No No -Wound/Ulcer Outcome Not Healed Not Healed -Ulcer Cleansing Rinsed/ Rinsed/ Irrigated with Irrigated with Saline Saline -Foul Odor after Cleansing No No -Bioengineered Tissue No No -Bleeding Controlled with Pressure Pressure -Treatment Response Procedure Procedure Tolerated Well Tolerated Well -Offloading No No -Debridement - Subq, 1st 20sq cm No Yes Pain Scale: 0-10 Numeric Is Patient Pain Free? Yes Yes WC - Nurse 3 - General Ulcer D/C NN Start: 03/24/22 10:52 Freq: Status: Active Protocol: Activity Type Activity Date Activity User E-sign Co-sign Detail Recorded Client Recorded Date Recorded By Document 03/24/22 12:35 RB [id number] 03/24/22 12:38 RB Document 03/28/22 10:43 MW [id number] 03/28/22 10:48 MW Document 03/31/22 11:06 RB [id number] 03/31/22 11:09 RB 03/24/22 03/28/22 03/31/22 12:35 10:43 11:06 Wound Care Nurse 3 #4 R 2nd toe -Ulcer Cleansing Wound Cleanser Soap and Water -Foul Odor after Cleansing No -Negative Pressure Wound Therapy N/A -Primary Dressing Applied Promogran -Other Dressing promogran -Primary Dressing Covered/Secured with Dry Gauze Dry Gauze, Secured with Tape -Promogran 1 #3 R Sellers Cluster -Ulcer Cleansing Soap and Water -Foul Odor after Cleansing No -Negative Pressure Wound Therapy N/A -Other Covering unna #2 L Grt Toe Plantar -Ulcer Cleansing Rinsed/ Rinsed/ Irrigated with Irrigated with Saline Saline -Foul Odor after Cleansing No -Negative Pressure Wound Therapy N/A -Other Dressing promogran promogran promogran -Primary Dressing Covered/Secured with Dry Gauze Dry Gauze, Secured with Tape #1 left Sellers -Ulcer Cleansing Rinsed/ Not Cleansed Irrigated with Saline -Foul Odor after Cleansing No -Negative Pressure Wound Therapy N/A -Other Dressing promogran promogran promogran -Primary Dressing Covered/Secured with Dry Gauze Right -Tubular Bandage Single Layer -Size of Tubigrip Used Size D -Size D ($) 1 Left -Lotion applied to leg before Yes compression wrap -Multi-Layered Wrap Application Unna Boot - Unna Boot - Unna Boot - Bilateral ($) Bilateral ($) Left ($) -Unna Boots (Bilat) ($) 2 2 Treatment Response Procedure Tolerated Well Vital Signs Temperature (97.8 F-99.1 F) 96.4 F L Temperature Source Temporal Pulse Rate (60-100) 73 Pulse Location Monitor Respiratory Rate (12-18) 18 Respiratory rate source Observation Oxygen Delivery Method Room Air Blood Pressure (90/60-120/80) 193/94 H Blood Pressure Mean (mm Hg) 127 Source Monitor Position Sitting Blood Pressure Location Left Arm Pain Scale: 0-10 Numeric Is Patient Pain Free? Yes Yes Yes WC - Visit Discharge Discharge Condition Stable Stable Stable Ambulatory Status Ambulatory,Cane Ambulatory,Cane Ambulatory Transportation Private Auto Private Auto Private Auto Accompanied by self Medication Reconcilliation completed & No No No provided to patient/care provider Clinical Summary of Care Provided Yes Yes Yes Additional Wound Wound debrided: left great toe plantar Laterality: Left Type of Debridement: Excisional debridement Anesthesia Used: 4% Lidocaine Solution and 5% Lidocaine Gel Depth: Down to and including healthy tissue and in the subcutaneous layer Percentage of wound debrided: 100 Instrument Used: 5mm curette Tissue Removed: Yellow slough, devitalized tissue Severity: Fat Layer Exposed Amount of bleeding with debridement: Mild Bleeding Controlled with: Compression and gauze Patient tolerated procedure: Patient tolerated procedure well Assessment/Plan Assessment/Plan (1) Diabetes type 2, controlled: CODE(S): E11.9 - Type 2 diabetes mellitus without complications (2) 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: CODE(S): I83.019 - Varicose veins of right lower extremity with ulcer of unspecified site; I83.029 - Varicose veins of left lower extremity with ulcer of unspecified site; L97.919 - Non-pressure chronic ulcer of unspecified part of right lower leg with unspecified severity; L97.929 - Non-pressure chronic ulcer of unspecified part of left lower leg with unspecified severity (3) Lymphedema associated with obesity: CODE(S): I89.0 - Lymphedema, not elsewhere classified; E66.9 - Obesity, unspecified (4) Venous insufficiency of both lower extremities: CODE(S): I87.2 - Venous insufficiency (chronic) (peripheral) (5) Skin ulcer of left great toe with fat layer exposed: CODE(S): L97.522 - Non-pressure chronic ulcer of other part of left foot with fat layer exposed (6) Ulcer of left great toe due to diabetes mellitus: CODE(S): E11.621 - Type 2 diabetes mellitus with foot ulcer; L97.529 - Non-pressure chronic ulcer of other part of left foot with unspecified severity (7) Ulcer of right second toe with fat layer exposed: CODE(S): L97.512 - Non-pressure chronic ulcer of other part of right foot with fat layer exposed (8) 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 At home wound-care instructions: UNNA boot compression applied to left leg today and Promogran applied to ulcer of left plantar toe and to left sellers wound. Right leg will be treated with single layer tubigrip compression. Keep dressings clean and dry. Off-loading: The patient was instructed to avoid pressure and friction on the affected areas. Reposition every 2 hours at minimum. Avoid prolonged standing and/or dangling of legs. When seated, feet should be elevated at chest level. Frequent ambulation is encouraged. Diet: Patient encouraged to increase protein intake while taking caution to avoid high carbohydrate and/or sugar intake. Labs/cultures/imaging: none additional Follow-up: Return in 1 week for wound care follow up. Return sooner or report to the emergency room should symptoms worsen, or new symptoms arise. Note: [employer] speech recognition lab nurse software was used to create portions of this document. Sound-alike and misspelled words, as well as other lab nurse errors may be contained in the documentation.
[2022-04-07 09:48] VITALS: BP 180/80; PULSE 60; RESP 18; TEMP 36.3; BMI 42.0
--- NOTE | 2022-04-07 14:02 | PCM.WC.PN ---
History of Present Illness Date of Service: 04/07/22 Chief Complaint: nonhealing traumatic wound to left sellers, edema, ulcers of right sellers, right second toe and left great toe History of Wound: Arleen is here for evaluation and treatment of a nonhealing wound to her left sellers which occurred on 02/08/22 and also has developed increased edema and ulcers to bilateral LE and 2 ulcers of her toes that she noticed last week. The left sellers occurred when she was working in her yard and cut her left lower leg on a cart. She went to ER and 7 sutures were placed. She then started to have a reaction to the Betadine used to clean her skin and was seen by her PCP on 02/20/22 for suture removal. The area was red with some sloughing of the skin around the sutures and there was drainage and redness but she was just finishing up antibiotic treatment with cephalexin. She used antibiotic ointment and gauze and follows up a week later for recheck and the wound had large amount of slough and heavy drainage. Was referred for treatment to wound center but due to holidays and weather and her own traveling she was unable to be seen until 03/24/22. Over the time period since her referral she continued to have edema and in the past week she has had blisters which have been draining bilaterally and also notes open wounds to her right second toe and left great toe plantar that bled last week. She has not applied anything to her right leg or to the toe wounds/ulcers but has been using an ABD pad to her left sellers wound and had treated it with calcium alginate for 2 weeks after she was seen on 02/27/22 but ran out of the product. She has been wrapping the left leg with an NANCI wrap. Her most recent A1C was 6.4% in 2021. She is not currently taking any diuretics. She is unable to don compression stockings due to arthritis in her hands and back. She has chronic lower extremity edema with intermittent ulcers which have come and gone in the past. She denies fever or chills, increased drainage or erythema. Subjective Subjective Arleen returns today for follow up of multiple ulcers/wounds that are present on both legs and toes. She tolerated treatment with UNNA boot of her left leg with improvement in her wound and tolerated tubigrip compression of her right leg with healing of her right leg ulcers. The ulcers of the right lower leg have healed and the right toe is healed. The left sellers improved in size and the left toe is healed. She did not receive a call or shipment of Circaid compression wraps. She denies any fever, chills, increased erythema, drainage or pain. Objective Data Objective Data Vital Signs: Vital Signs Temp Pulse Resp BP O2 Del Method 97.3 F L 60 18 180/80 H Room Air 04/07/22 09:48 04/07/22 09:48 04/07/22 09:48 04/07/22 09:48 03/28/22 10:43 Oxygen Delivery Method Room Air Weight: 104.355 kg Body Mass Index (BMI) 42.0 Physical Exam Const alert, oriented x3 and no apparent distress General Appearance: cooperative and comfortable Nutritional Appearance: morbidly obese HEENT normocephalic and head/scalp atraumatic Resp normal respiratory effort Effort and Inspection: able to speak in complete sentences Cardio regular rate and regular rhythm Extremity General Extremity: edema bilateral lower extremity Details: moderate Skin General Skin Exam: venous stasis and dermatitis Wounds: wounds noted Wound Narrative: as in clinical panel Psych mental status grossly normal, thought process normal, cooperative and affect normal Debridement Note Debridement Note Wound debrided: left sellers Laterality: Left Type of Debridement: Excisional debridement Anesthesia Used: 4% Lidocaine Solution and 5% Lidocaine Gel Depth: Down to and including healthy tissue and in the subcutaneous layer Percentage of wound debrided: 100 Instrument Used: 3mm curette Severity: Fat Layer Exposed Amount of bleeding with debridement: Mild Bleeding Controlled with: Compression and gauze Patient tolerated procedure: Patient tolerated procedure well Post-Debridement Measurements and Additional Note: Post-Debridement Measurements/Treatment - Nurse 1 - General Ulcer Assessment Start: 03/24/22 10:52 Freq: Status: Active Protocol: [email or web address] Activity Type Activity Date Activity User E-sign Co-sign Detail Recorded Client Recorded Date Recorded By Document 03/24/22 10:52 DL [id number] 03/24/22 11:28 DL Document 03/28/22 10:43 MW [id number] 03/28/22 10:48 MW Document 03/31/22 10:12 RB [id number] 03/31/22 10:23 RB Document 04/07/22 09:48 DL [id number] 04/07/22 09:59 DL 03/24/22 03/28/22 03/31/22 10:52 10:43 10:12 WC - Today's Visit Information Type of service Initial Visit Nurse-only Visit Arrival Mode Ambulatory,Cane Ambulatory Transfer Assistance None None Accompanied by self Patient Identification Verified (Name & Yes Yes ) Patient Requires Transmission-Based No No Precautions Safety Precautions NA Finger Stick Blood Sugar(mg/dl) (if not checked indicated): Blood Sugar Stated by Patient Height and Weight Height 5 ft 2 in Weight 104.355 kg Weight in Pounds 230.1 lbs Body Mass Index (BMI) 42.0 42.0 42.0 BMI Classification Obese Obese Obese BSA - Marleen 2.03 Vital Signs Temperature (97.8 F-99.1 F) 97 F L 96.4 F L 95.5 F L Temperature Source Temporal Temporal Temporal Pulse Rate (60-100) 65 73 66 Pulse Location Monitor Monitor Monitor Respiratory Rate (12-18) 22 H 18 18 Respiratory rate source Observation Observation Observation Oxygen Delivery Method Room Air Blood Pressure (90/60-120/80) 139/82 H 193/94 H 188/80 H Blood Pressure Mean (mm Hg) 101 127 116 Source Monitor Monitor Monitor Position Sitting Semi-Fowlers Blood Pressure Location Left Arm Left Arm History Since Last Visit- (Skip if this is Patient's initial visit) Have you changed medications since your No No last visit? Any new allergies or adverse reactions No No Had a fall/change in ADL's that may No No increase risk of falls Signs or symptoms of abuse and/or No No neglect since last visit Have you been in the hospital since your No No last visit? Has dressing in place as prescribed Yes Yes Has compression in place as prescribed Yes Yes Has offloadiing in place as prescribed N/A No Experienced any changes in pain level or No No management Left Footwear Regular Shoe Right Footwear Regular Shoe Pain Scale: 0-10 Numeric Is Patient Pain Free? Yes Yes Yes Lower Extremity Assessment/ Foot Assessment/ Toe Nail Assessment Left -Posterior Tibial Palpable No -Posterior Tibial Doppler Monophasic -Dorsalis Pedis Palpable No -Dorsalis Pedis Doppler Monophasic -Extremity Color Dusky, Hyperpigmented, Hemosiderin -Hair Growth on Legs No -Hair Growth on Toes No -Temperature of Extremity Cool -Capillary Refill Greater than 3 Seconds -Dependent Rubor No -Blanched when Elevated No -Lipodermatosclerosis No -Other Deformity No -Prior Foot Ulcer No -Charcot Joint No -Prior Amputation No -Thick Yes -Discolored Yes -Deformed Yes -Improper Length & Hygeine Yes Right -Posterior Tibial Palpable No -Posterior Tibial Doppler Multiphasic -Dorsalis Pedis Palpable No -Dorsalis Pedis Doppler Multiphasic -Extremity Color Dusky, Hyperpigmented, Hemosiderin -Hair Growth on Legs No -Hair Growth on Toes No -Temperature of Extremity Cool -Capillary Refill Greater than 3 Seconds -Dependent Rubor No -Blanched when Elevated No -Lipodermatosclerosis No -Other Deformity No -Prior Foot Ulcer No -Charcot Joint No -Prior Amputation No -Thick Yes -Discolored Yes -Deformed Yes -Improper Length & Hygeine Yes Neuropathy Assessment Feet - Top Side and Bottom <Entered> (a) Communication Assessment Preferred language Green[place]ic [employer] Required No Able to Read Yes Able to Write Yes Communication Tools None Right Hearing Abillity Normal Left Hearing Abillity Normal Visual Assistive Devices Glasses Teaching Assessment Preferences Verbal,Written, Demonstration Barriers to Learning None Readiness To Learn Good Willingness to Engage in Self Management Med Activies Readiness to Engage in Self Management Med Activities Anxiety Level Calm Cooperation Cooperative Perception Coherent Interest in Health Problem Uninterested Education Importance Acknowledges Need Does Patient Smoke tobacco or other No substances Smoking Status Never smoker Is Patient Diabetic Yes Functional Assessment Recent Decline in Ability to Perform Denies Any Declines Assistive Device With Patient Yes List Device(s) with Patient cane Culture/Congregation/W[employer] Cultural/Congregation Needs that may affect No Treatment Plan Would you allow our hospital shopper insights manager to No meet you for the purpose of spiritual/ emotional support? 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 ) Arrival Mode Ambulatory Transfer Assistance None Accompanied by Patient Identification Verified (Name & Yes ) Patient Requires Transmission-Based No Precautions Safety Precautions Finger Stick Blood Sugar(mg/dl) (if indicated): Blood Sugar Height and Weight Height Weight Weight in Pounds Body Mass Index (BMI) 42.0 BMI Classification Obese BSA - Marleen Vital Signs Temperature (97.8 F-99.1 F) 97.3 F L Temperature Source Temporal Pulse Rate (60-100) 60 Pulse Location Monitor Respiratory Rate (12-18) 18 Respiratory rate source Ausculation Oxygen Delivery Method Blood Pressure (90/60-120/80) 180/80 H Blood Pressure Mean (mm Hg) 113 Source Manual Position Sitting Blood Pressure Location Left Arm History Since Last Visit- (Skip if this is Patient's initial visit) Have you changed medications since your No last visit? Any new allergies or adverse reactions No Had a fall/change in ADL's that may No increase risk of falls Signs or symptoms of abuse and/or No neglect since last visit Have you been in the hospital since your No last visit? Has dressing in place as prescribed Yes Has compression in place as prescribed Yes Has offloadiing in place as prescribed N/A Experienced any changes in pain level or No management Left Footwear Right Footwear Pain Scale: 0-10 Numeric Is Patient Pain Free? Yes Lower Extremity Assessment/ Foot Assessment/ Toe Nail Assessment Left -Posterior Tibial Palpable -Posterior Tibial Doppler -Dorsalis Pedis Palpable -Dorsalis Pedis Doppler -Extremity Color -Hair Growth on Legs -Hair Growth on Toes -Temperature of Extremity -Capillary Refill -Dependent Rubor -Blanched when Elevated -Lipodermatosclerosis -Other Deformity -Prior Foot Ulcer -Charcot Joint -Prior Amputation -Thick -Discolored -Deformed -Improper Length & Hygeine Right -Posterior Tibial Palpable -Posterior Tibial Doppler -Dorsalis Pedis Palpable -Dorsalis Pedis Doppler -Extremity Color -Hair Growth on Legs -Hair Growth on Toes -Temperature of Extremity -Capillary Refill -Dependent Rubor -Blanched when Elevated -Lipodermatosclerosis -Other Deformity -Prior Foot Ulcer -Charcot Joint -Prior Amputation -Thick -Discolored -Deformed -Improper Length & Hygeine Neuropathy Assessment Feet - Top Side and Bottom Communication Assessment Preferred language teacher Required Able to Read Able to Write Communication Tools Right Hearing Abillity Left Hearing Abillity Visual Assistive Devices Teaching Assessment Preferences Barriers to Learning Readiness To Learn Willingness to Engage in Self Management Activies Readiness to Engage in Self Management Activities Anxiety Level Cooperation Perception Interest in Health Problem Education Importance Does Patient Smoke tobacco or other substances Smoking Status Is Patient Diabetic Functional Assessment Recent Decline in Ability to Perform Assistive Device With Patient List Device(s) with Patient Culture/Congregation/Wel[employer] App[employer]ice [employer] Cultural/Congregation Needs that may affect Treatment Plan Would you allow our hospital shopper insights manager to meet you for the purpose of spiritual/ emotional support? [employer] Apprentice [employer] to contact place of pentecostal Teaching: Wound Center Compression Wraps & Stockings -Person Taught Dressing Your Wound -Person Taught Discharge Instructions -Person Taught *Welcome to the Wound Center -Person Taught (a) 1 - + WC - Nurse 1 - General Ulcer Measurement Start: 03/24/22 10:52 Freq: Status: Active Protocol: Activity Type Activity Date Activity User E-sign Co-sign Detail Recorded Client Recorded Date Recorded By Document 03/24/22 10:52 DL [id number] 03/24/22 11:28 DL Document 03/28/22 10:43 MW [id number] 03/28/22 10:48 MW Document 03/31/22 10:12 RB [id number] 03/31/22 10:23 RB Document 04/07/22 09:48 DL [id number] 04/07/22 09:59 DL 03/24/22 03/28/22 03/31/22 10:52 10:43 10:12 Wound Center Nurse 1 #4 R 2nd toe -Combined with other wound No -Current Size (cm) - Length 0.5 0.1 -Current Size (cm) - Width 0.5 0.1 -Current Size (cm) - Depth 0.1 0.1 -Total Square Cm 0.25 0.01 -Photo Taken Yes Yes -Tunneling No -Undermining/Tunneling No -Circular Undermining No -Exudate Amt Medium None Present -Exudate Type Serosanguineous -Wound Margin Distinct, Distinct, Outline Outline Attached Attached -Granulation Amt Large (67-100%) Large (67-100%) -Granulation Quality Red [place] -Slough/Fibrin Yes -Necrosis Amt Small (1-33%) Small (1-33%) -Necrotic Tissue Type Adherent Slough Adherent Slough -Structure Exposed N/A N/A -Texture (Nena-wound Skin Appearance) Scarring No Abnormality, Callus -Moisture (Nena-wound Skin Appearance) Maceration, Assessed Weeping -Color (Nena-wound Skin Appearance) Ecchymosis, Assessed Hemosiderin Staining -Temperature (Nena-wound Skin No Abnormality No Abnormality Appearance) (Pt Warm) (Pt Warm) -Tenderness on Palpation (Nena-wound No No Skin Appearance) -Ulcer Cleansing Soap and Water Wound Cleanser -Foul Odor after Cleansing No No -Anesthetic Used 5% Lidocaine 5% Lidocaine Gel Gel #3 R Sellers Cluster -Combined with other wound No -Current Size (cm) - Length 18.2 0.1 -Current Size (cm) - Width 9 0.1 -Current Size (cm) - Depth 0.1 0.1 -Total Square Cm 163.8 0.01 -Photo Taken Yes Yes -Epithelialization -Tunneling No -Undermining/Tunneling No -Circular Undermining No -Exudate Amt Large None Present -Exudate Type Serosanguineous -Wound Margin Indistinct, Non Distinct, -Visible Outline Attached -Granulation Amt Large (67-100%) Large (67-100%) -Granulation Quality Fair Plain Fair Plain -Slough/Fibrin Yes -Necrosis Amt Small (1-33%) Small (1-33%) -Necrotic Tissue Type Adherent Slough Adherent Slough -Structure Exposed N/A N/A -Texture (Nena-wound Skin Appearance) Localized Edema Assessed ,Scarring -Moisture (Nena-wound Skin Appearance) Weeping Assessed -Color (Nena-wound Skin Appearance) Hemosiderin Assessed Staining -Temperature (Nena-wound Skin No Abnormality No Abnormality Appearance) (Pt Warm) (Pt Warm) -Tenderness on Palpation (Nena-wound No No Skin Appearance) -Ulcer Cleansing Soap and Water Wound Cleanser -Foul Odor after Cleansing No No -Anesthetic Used 4% Lidocaine 5% Lidocaine Solution Gel #2 L Grt Toe Plantar -Combined with other wound No -Current Size (cm) - Length 0.7 0.1 -Current Size (cm) - Width 0.5 0.1 -Current Size (cm) - Depth 0.1 0.1 -Total Square Cm 0.35 0.01 -Photo Taken Yes Yes -Tunneling No -Undermining/Tunneling No -Circular Undermining No -Classification - Thickness Full Thickness without Exposed Support Structure -Exudate Amt Small None Present -Exudate Type Serosanguineous -Wound Margin Distinct, Distinct, Outline Outline Attached Attached -Granulation Amt None Present (0 Large (67-100%) %) -Granulation Quality Fair [place] -Slough/Fibrin Yes -Necrosis Amt Large (67-100%) None Present (0 %) -Necrotic Tissue Type Adherent Slough Adherent Slough -Structure Exposed N/A N/A -Texture (Nena-wound Skin Appearance) Callus,Scarring Assessed -Moisture (Nena-wound Skin Appearance) Dry/Scaly Assessed -Color (Nena-wound Skin Appearance) No Abnormality Assessed -Temperature (Nena-wound Skin No Abnormality No Abnormality Appearance) (Pt Warm) (Pt Warm) -Tenderness on Palpation (Nena-wound No No Skin Appearance) -Ulcer Cleansing Soap and Water Wound Cleanser -Foul Odor after Cleansing No No -Anesthetic Used 5% Lidocaine 5% Lidocaine Gel Gel #1 left Sellers -Combined with other wound No -Current Size (cm) - Length 0.8 6 -Current Size (cm) - Width 2.5 1.5 -Current Size (cm) - Depth 0.4 0.2 -Total Square Cm 2.00 9.0 -Photo Taken Yes Yes -Tunneling No -Undermining/Tunneling No -Circular Undermining No -Exudate Amt Large Medium -Exudate Type Serosanguineous Serosanguineous -Wound Margin Distinct, Distinct, Outline Outline Attached Attached -Granulation Amt None Present (0 Medium (34-66%) %) -Granulation Quality [place] -Slough/Fibrin Yes -Necrosis Amt Large (67-100%) Small (1-33%) -Necrotic Tissue Type Adherent Slough Adherent Slough -Structure Exposed N/A N/A -Texture (Nena-wound Skin Appearance) Localized Edema Assessed, ,Scarring Scarring -Moisture (Nena-wound Skin Appearance) Weeping Assessed -Color (Nena-wound Skin Appearance) Hemosiderin Assessed Staining -Temperature (Nena-wound Skin No Abnormality No Abnormality Appearance) (Pt Warm) (Pt Warm) -Tenderness on Palpation (Nena-wound No No Skin Appearance) -Ulcer Cleansing Not Cleansed Wound Cleanser -Foul Odor after Cleansing No No -Anesthetic Used 5% Lidocaine 5% Lidocaine Gel Gel Lower Limb Edema Present Yes Yes Right Calf (cm) 46 35.8 35 Right Ankle (cm) 24.5 23.0 22.2 Left Calf (cm) 45.3 37.0 35.5 Left Ankle (cm) 25.5 23.5 04/07/22 09:48 Wound Center Nurse 1 #4 R 2nd toe -Combined with other wound -Current Size (cm) - Length -Current Size (cm) - Width -Current Size (cm) - Depth -Total Square Cm -Photo Taken -Tunneling -Undermining/Tunneling -Circular Undermining -Exudate Amt -Exudate Type -Wound Margin -Granulation Amt -Granulation Quality -Slough/Fibrin -Necrosis Amt -Necrotic Tissue Type -Structure Exposed -Texture (Nena-wound Skin Appearance) -Moisture (Nena-wound Skin Appearance) -Color (Nena-wound Skin Appearance) -Temperature (Nena-wound Skin Appearance) -Tenderness on Palpation (Nena-wound Skin Appearance) -Ulcer Cleansing -Foul Odor after Cleansing -Anesthetic Used #3 R Sellers Cluster -Combined with other wound No -Current Size (cm) - Length 0 -Current Size (cm) - Width 0 -Current Size (cm) - Depth 0 -Total Square Cm 0 -Photo Taken Yes -Epithelialization Large 67-100% -Tunneling -Undermining/Tunneling -Circular Undermining -Exudate Amt -Exudate Type -Wound Margin -Granulation Amt -Granulation Quality -Slough/Fibrin -Necrosis Amt -Necrotic Tissue Type -Structure Exposed -Texture (Nena-wound Skin Appearance) -Moisture (Nena-wound Skin Appearance) -Color (Nena-wound Skin Appearance) -Temperature (Nena-wound Skin Appearance) -Tenderness on Palpation (Nena-wound Skin Appearance) -Ulcer Cleansing -Foul Odor after Cleansing -Anesthetic Used #2 L Grt Toe Plantar -Combined with other wound No -Current Size (cm) - Length 0.1 -Current Size (cm) - Width 0.1 -Current Size (cm) - Depth 0.1 -Total Square Cm 0.01 -Photo Taken Yes -Tunneling No -Undermining/Tunneling No -Circular Undermining No -Classification - Thickness -Exudate Amt Medium -Exudate Type Serosanguineous -Wound Margin Distinct, Outline Attached -Granulation Amt Medium (34-66%) -Granulation Quality [place] -Slough/Fibrin Yes -Necrosis Amt Medium (34-66%) -Necrotic Tissue Type Adherent Slough -Structure Exposed N/A -Texture (Nena-wound Skin Appearance) Assessed,Callus -Moisture (Nena-wound Skin Appearance) Assessed -Color (Nena-wound Skin Appearance) Assessed -Temperature (Nena-wound Skin No Abnormality Appearance) (Pt Warm) -Tenderness on Palpation (Nean-wound No Skin Appearance) -Ulcer Cleansing Wound Cleanser -Foul Odor after Cleansing No -Anesthetic Used 5% Lidocaine Gel #1 left Sellers -Combined with other wound No -Current Size (cm) - Length 0.5 -Current Size (cm) - Width 1.8 -Current Size (cm) - Depth 0.2 -Total Square Cm 0.90 -Photo Taken Yes -Tunneling No -Undermining/Tunneling No -Circular Undermining No -Exudate Amt Medium -Exudate Type Serosanguineous -Wound Margin Distinct, Outline Attached -Granulation Amt Medium (34-66%) -Granulation Quality Fair [place] -Slough/Fibrin Yes -Necrosis Amt Small (1-33%) -Necrotic Tissue Type Adherent Slough -Structure Exposed N/A -Texture (Nena-wound Skin Appearance) Assessed -Moisture (Nena-wound Skin Appearance) Assessed -Color (Nena-wound Skin Appearance) Assessed -Temperature (Nena-wound Skin No Abnormality Appearance) (Pt Warm) -Tenderness on Palpation (Nena-wound No Skin Appearance) -Ulcer Cleansing Wound Cleanser -Foul Odor after Cleansing No -Anesthetic Used 5% Lidocaine Gel Lower Limb Edema Present Yes Right Calf (cm) 38.5 Right Ankle (cm) 22 Left Calf (cm) 34.5 Left Ankle (cm) 21 WC - Nurse 2 - General Ulcer CM Notes Start: 03/24/22 10:52 Freq: Status: Active Protocol: Activity Type Activity Date Activity User E-sign Co-sign Detail Recorded Client Recorded Date Recorded By Document 03/24/22 12:08 MW [id number] 03/24/22 12:29 MW Document 03/31/22 10:45 MW [id number] 03/31/22 11:00 MW Document 04/07/22 10:26 MW [id number] 04/07/22 10:34 MW 03/24/22 03/31/22 04/07/22 12:08 10:45 10:26 Wound Center Nurse 2 #4 R 2nd toe -Time 12:12 11:00 -Correct Patient Yes Yes -Correct Side, Site, Position Yes Yes -Correct Procedure Yes Yes -Procedure Performed Yes No -Type of Procedure Debridement -Clinical Debridement Subcutaneous -Tissue Removed Subcutaneous -Post Debridement (cm) - Length 0.4 0 -Post Debridement (cm) - Width 0.5 0 -Post Debridement (cm) - Depth 0.1 0 -Total Square (Post) (cm) 0.20 0 -Area of Debridement (cm) - Length 0.4 -Area of Debridement (cm) - Width 0.5 -Total Square (Area) (cm) 0.20 -Tunneling No -Undermining/Tunneling No -Circular Undermining No -Wound/Ulcer Outcome Not Healed Healed- Epithelialized -Ulcer Cleansing Rinsed/ Irrigated with Saline -Foul Odor after Cleansing No -Bioengineered Tissue No -Bleeding Controlled with Pressure -Treatment Response Procedure Tolerated Well -Offloading No -Debridement - Subq, 1st 20sq cm Yes -Debridement, SubQ, ea addt'l 20sq cm 1 or part thereof #3 R Sellers Cluster -Time 12:13 10:47 10:27 -Correct Patient Yes Yes Yes -Correct Side, Site, Position Yes Yes Yes -Correct Procedure Yes Yes -Procedure Performed Yes No No -Type of Procedure Debridement -Clinical Debridement Subcutaneous -Tissue Removed Subcutaneous -Post Debridement (cm) - Length 7.0 0.1 0 -Post Debridement (cm) - Width 3.0 0.1 0 -Post Debridement (cm) - Depth 0.1 0.1 0 -Total Square (Post) (cm) 21.00 0.01 0 -Area of Debridement (cm) - Length 7.0 -Area of Debridement (cm) - Width 3.0 -Total Square (Area) (cm) 21.00 -Tunneling No No -Undermining/Tunneling No No -Circular Undermining No No -Wound/Ulcer Outcome Not Healed Not Healed Healed- Epithelialized -Ulcer Cleansing Rinsed/ Not Cleansed Irrigated with Saline -Foul Odor after Cleansing No -Bioengineered Tissue No -Bleeding Controlled with Pressure -Treatment Response Procedure Tolerated Well -Offloading No -Debridement - Subq, 1st 20sq cm No #2 L Grt Toe Plantar -Time 12:13 10:48 10:28 -Correct Patient Yes Yes Yes -Correct Side, Site, Position Yes Yes Yes -Correct Procedure Yes Yes Yes -Procedure Performed Yes No -Type of Procedure Debridement Debridement -Clinical Debridement Subcutaneous Subcutaneous -Tissue Removed Subcutaneous Subcutaneous -Post Debridement (cm) - Length 0.7 0.5 0 -Post Debridement (cm) - Width 0.5 0.3 0 -Post Debridement (cm) - Depth 0.1 0.1 -Total Square (Post) (cm) 0.35 0.15 0 -Area of Debridement (cm) - Length 0.7 0.5 -Area of Debridement (cm) - Width 0.5 0.3 -Total Square (Area) (cm) 0.35 0.15 -Tunneling No No -Undermining/Tunneling No No -Circular Undermining No No -Wound/Ulcer Outcome Not Healed Not Healed Healed- Epithelialized -Ulcer Cleansing Rinsed/ Rinsed/ Irrigated with Irrigated with Saline Saline -Foul Odor after Cleansing No No -Bioengineered Tissue No No -Bleeding Controlled with Pressure Pressure -Treatment Response Procedure Procedure Tolerated Well Tolerated Well -Offloading No No -Debridement - Subq, 1st 20sq cm No No #1 left Sellers -Time 12:13 10:49 10:28 -Correct Patient Yes Yes Yes -Correct Side, Site, Position Yes Yes Yes -Correct Procedure Yes Yes Yes -Procedure Performed Yes Yes Yes -Type of Procedure Debridement Debridement Debridement -Clinical Debridement Subcutaneous Subcutaneous Subcutaneous -Tissue Removed Subcutaneous Subcutaneous Subcutaneous -Post Debridement (cm) - Length 1.0 1.0 0.5 -Post Debridement (cm) - Width 3.0 1.8 0.9 -Post Debridement (cm) - Depth 0.3 0.2 0.2 -Total Square (Post) (cm) 3.00 1.80 0.45 -Area of Debridement (cm) - Length 1.0 1.0 0.5 -Area of Debridement (cm) - Width 3.0 1.8 0.9 -Total Square (Area) (cm) 3.00 1.80 0.45 -Tunneling No No No -Undermining/Tunneling No No No -Circular Undermining No No No -Wound/Ulcer Outcome Not Healed Not Healed Not Healed -Ulcer Cleansing Rinsed/ Rinsed/ Rinsed/ Irrigated with Irrigated with Irrigated with Saline Saline Saline -Foul Odor after Cleansing No No No -Bioengineered Tissue No No No -Bleeding Controlled with Pressure Pressure Pressure -Treatment Response Procedure Procedure Procedure Tolerated Well Tolerated Well Tolerated Well -Offloading No No No -Debridement - Subq, 1st 20sq cm No Yes Yes Pain Scale: 0-10 Numeric Is Patient Pain Free? Yes Yes Yes WC - Nurse 3 - General Ulcer D/C NN Start: 03/24/22 10:52 Freq: Status: Active Protocol: Activity Type Activity Date Activity User E-sign Co-sign Detail Recorded Client Recorded Date Recorded By Document 03/24/22 12:35 RB [id number] 03/24/22 12:38 RB Document 03/28/22 10:43 MW [id number] 03/28/22 10:48 MW Document 03/31/22 11:06 RB [id number] 03/31/22 11:09 RB Document 04/07/22 10:35 MW [id number] 04/07/22 10:36 MW 03/24/22 03/28/22 03/31/22 12:35 10:43 11:06 Wound Care Nurse 3 #4 R 2nd toe -Ulcer Cleansing Wound Cleanser Soap and Water -Foul Odor after Cleansing No -Negative Pressure Wound Therapy N/A -Primary Dressing Applied Promogran -Other Dressing promogran -Primary Dressing Covered/Secured with Dry Gauze Dry Gauze, Secured with Tape -Promogran 1 #3 R Sellers Cluster -Ulcer Cleansing Soap and Water -Foul Odor after Cleansing No -Negative Pressure Wound Therapy N/A -Other Covering unna #2 L Grt Toe Plantar -Ulcer Cleansing Rinsed/ Rinsed/ Irrigated with Irrigated with Saline Saline -Foul Odor after Cleansing No -Negative Pressure Wound Therapy N/A -Other Dressing promogran promogran promogran -Primary Dressing Covered/Secured with Dry Gauze Dry Gauze, Secured with Tape #1 left Sellers -Ulcer Cleansing Rinsed/ Not Cleansed Irrigated with Saline -Foul Odor after Cleansing No -Negative Pressure Wound Therapy N/A -Primary Dressing Applied -Other Dressing promogran promogran promogran -Primary Dressing Covered/Secured with Dry Gauze -Mepilex Border -Promogran Right -Lotion applied to leg before compression wrap -Tubular Bandage Single Layer -Size of Tubigrip Used Size D -Size D ($) 1 Left -Lotion applied to leg before Yes compression wrap -Multi-Layered Wrap Application Unna Boot - Unna Boot - Unna Boot - Bilateral ($) Bilateral ($) Left ($) -Unna Boots (Bilat) ($) 2 2 -Tubular Bandage -Size of Tubigrip Used -Size D ($) Treatment Response Procedure Tolerated Well Vital Signs Temperature (97.8 F-99.1 F) 96.4 F L Temperature Source Temporal Pulse Rate (60-100) 73 Pulse Location Monitor Respiratory Rate (12-18) 18 Respiratory rate source Observation Oxygen Delivery Method Room Air Blood Pressure (90/60-120/80) 193/94 H Blood Pressure Mean (mm Hg) 127 Source Monitor Position Sitting Blood Pressure Location Left Arm Pain Scale: 0-10 Numeric Is Patient Pain Free? Yes Yes Yes Teaching: Wound Center Compression Wraps & Stockings -Person Taught -Teaching Method -Response to teaching Dressing Your Wound -Person Taught -Teaching Method -Response to teaching WC - Visit Discharge Discharge Condition Stable Stable Stable Ambulatory Status Ambulatory,Cane Ambulatory,Cane Ambulatory Transportation Private Auto Private Auto Private Auto Accompanied by self Medication Reconcilliation completed & No No No provided to patient/care provider Clinical Summary of Care Provided Yes Yes Yes 04/07/22 10:35 Wound Care Nurse 3 #4 R 2nd toe -Ulcer Cleansing -Foul Odor after Cleansing -Negative Pressure Wound Therapy -Primary Dressing Applied -Other Dressing -Primary Dressing Covered/Secured with -Promogran #3 R Sellers Cluster -Ulcer Cleansing -Foul Odor after Cleansing -Negative Pressure Wound Therapy -Other Covering #2 L Grt Toe Plantar -Ulcer Cleansing -Foul Odor after Cleansing -Negative Pressure Wound Therapy -Other Dressing -Primary Dressing Covered/Secured with #1 left Sellers -Ulcer Cleansing Rinsed/ Irrigated with Saline -Foul Odor after Cleansing No -Negative Pressure Wound Therapy N/A -Primary Dressing Applied Mepilex Border, NonAdherent Contact Layer, Promogran -Other Dressing -Primary Dressing Covered/Secured with -Mepilex Border 2 -Promogran 1 Right -Lotion applied to leg before No compression wrap -Tubular Bandage Single Layer -Size of Tubigrip Used Size D -Size D ($) 1 Left -Lotion applied to leg before No compression wrap -Multi-Layered Wrap Application -Unna Boots (Bilat) ($) -Tubular Bandage Single Layer -Size of Tubigrip Used Size D -Size D ($) 1 Treatment Response Procedure Tolerated Well Vital Signs Temperature (97.8 F-99.1 F) Temperature Source Pulse Rate (60-100) Pulse Location Respiratory Rate (12-18) Respiratory rate source Oxygen Delivery Method Blood Pressure (90/60-120/80) Blood Pressure Mean (mm Hg) Source Position Blood Pressure Location Pain Scale: 0-10 Numeric Is Patient Pain Free? Yes Teaching: Wound Center Compression Wraps & Stockings -Person Taught Patient -Teaching Method Discussion, Demonstration -Response to teaching Verbalize understanding Dressing Your Wound -Person Taught Patient -Teaching Method Discussion, Demonstration -Response to teaching Verbalize understanding WC - Visit Discharge Discharge Condition Stable Ambulatory Status Ambulatory Transportation Private Auto Accompanied by self Medication Reconcilliation completed & No provided to patient/care provider Clinical Summary of Care Provided Yes Assessment/Plan Assessment/Plan (1) Diabetes type 2, controlled: CODE(S): E11.9 - Type 2 diabetes mellitus without complications (2) 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: CODE(S): I83.019 - Varicose veins of right lower extremity with ulcer of unspecified site; I83.029 - Varicose veins of left lower extremity with ulcer of unspecified site; L97.919 - Non-pressure chronic ulcer of unspecified part of right lower leg with unspecified severity; L97.929 - Non-pressure chronic ulcer of unspecified part of left lower leg with unspecified severity (3) Lymphedema associated with obesity: CODE(S): I89.0 - Lymphedema, not elsewhere classified; E66.9 - Obesity, unspecified (4) Venous insufficiency of both lower extremities: CODE(S): I87.2 - Venous insufficiency (chronic) (peripheral) (5) Skin ulcer of left great toe with fat layer exposed: CODE(S): L97.522 - Non-pressure chronic ulcer of other part of left foot with fat layer exposed (6) Ulcer of left great toe due to diabetes mellitus: CODE(S): E11.621 - Type 2 diabetes mellitus with foot ulcer; L97.529 - Non-pressure chronic ulcer of other part of left foot with unspecified severity (7) Ulcer of right second toe with fat layer exposed: CODE(S): L97.512 - Non-pressure chronic ulcer of other part of right foot with fat layer exposed (8) 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 At home wound-care instructions: Will have her continue to use tubigrip in single layer for compression of both legs. Left sellers will be dressed with Promogan and adaptic and covered with silicone bordered foam dressing for protection. Keep dressings clean and dry. Off-loading: The patient was instructed to avoid pressure and friction on the affected areas. Reposition every 2 hours at minimum. Avoid prolonged standing and/or dangling of legs. When seated, feet should be elevated at chest level. Frequent ambulation is encouraged. Diet: Patient encouraged to increase protein intake while taking caution to avoid high carbohydrate and/or sugar intake. Labs/cultures/imaging: none additional Follow-up: Return in 1 week for wound care follow up. Return sooner or report to the emergency room should symptoms worsen, or new symptoms arise. Note: [employer] speech recognition research test engine operator software was used to create portions of this document. Sound-alike and misspelled words, as well as other research test engine operator errors may be contained in the documentation.
== END 2022-04-18 23:59 | disposition home or self-care (01) ==
LOC: WC 10:00
PROVIDERS: PCP Family Medicine; Visit Provider Family Medicine
DX: I83.018 Varicose veins of right lower extremity with ulcer other part of lower leg (principal); E11.622 Type 2 diabetes mellitus with other skin ulcer; E11.621 Type 2 diabetes mellitus with foot ulcer; L97.822 Non-pressure chronic ulcer of other part of left lower leg with fat layer exposed; L97.512 Non-pressure chronic ulcer of other part of right foot with fat layer exposed; L97.812 Non-pressure chronic ulcer of other part of right lower leg with fat layer exposed; L97.522 Non-pressure chronic ulcer of other part of left foot with fat layer exposed; I83.028 Varicose veins of left lower extremity with ulcer other part of lower leg; I83.015 Varicose veins of right lower extremity with ulcer other part of foot; I83.025 Varicose veins of left lower extremity with ulcer other part of foot; E11.42 Type 2 diabetes mellitus with diabetic polyneuropathy; R60.0 Localized edema; I10 Essential (primary) hypertension; M79.7 Fibromyalgia; Z79.899 Other long term (current) drug therapy; Z79.84 Long term (current) use of oral hypoglycemic drugs
CPT/HCPCS: 11042; 11045; 29580; 99203; G0463

== ENCOUNTER → 2022-04-21 | Outpatient (CLI) | payer MEDICARE, OTHER, SELFPAY ==
[2022-04-21 12:11] LABS: Absolute Lymphocyte Count 2.72 X10^3/uL (0.83-4.51); Absolute Neutrophil Count 5.1 X10^3/uL (2.0-7.7); Basophil# 0.07 X10^3/uL; Basophil% 0.8 % (0-1); Eosinophils% 3.4 % (0-5); Hematocrit 36.8 % (37-47); Hemoglobin 11.5 g/dL (12.0-15.0); Lymphocyte # 2.72 X10^3/ul (0.83-4.51); Mean Corp Hgb Conc 31.3 g/dL (32-36); Mean Corpuscular Hgb 29.6 pg (27.0-32.0); Mean Corpuscular Volume 94.6 fL (81-99); Mean Platelet Vol. 11.6 fl (6.2-12.0); Monocyte# 0.52 X10^3/uL; Monocyte% 5.9 % (0-10); NRBC Flagged by Analyzer 0 % (0-5); Neutrophil # 5.13 X10^3/uL (2.7-7.7); Neutrophil % 58.6 % (47-70); Platelet Count 257 K/mm3 (150-450); RBC Distribution Width SD 58.2 fl (35.1-43.9); Red Blood Count 3.89 M/mm3 (4.2-5.4); White Blood Count 8.8 K/mm3 (4.4-11.0)
[2022-04-21 12:31] LABS: ALB/GLOB Ratio 0.8 RATIO (0.9-2.4); AST(SGOT) 14 U/L (15-37); Alanine Aminotransfer ALT/SGPT 21 U/L (13-56); Albumin, Serum 3.6 g/dL (3.2-5.0); Alkaline Phosphatase 81 U/L (45-117); Anion Gap 6 (5-15); BUN 27 mg/dL (7-18); BUN/Creat Ratio 31.7 RATIO (10-20); Calcium,Total 8.6 mg/dL (8.5-10.1); Chloride 109 mmol/L (98-107); Creatinine, Serum 0.85 mg/dL (0.55-1.02); EST Glomerular Filtration Rate 68 mL/min (>60); Est Glom Filt Rate - Afr Amer 83 mL/min (>60); Globulin 4.4 g/dL (2.2-4.2); Glucose 139 mg/dL (74-106); Potassium 4.2 mmol/L (3.5-5.1); Sodium Level 140 mmol/L (136-145)
== END | disposition home or self-care (01) ==
LOC: MTLAB 10:00
PROVIDERS: PCP Family Medicine; Referring Provider Internal Medicine Rheumatology; Visit Provider Internal Medicine Rheumatology
DX: M06.4 Inflammatory polyarthropathy (principal); Z79.899 Other long term (current) drug therapy
CPT/HCPCS: 36415; 80053; 85025

== ENCOUNTER 2022-05-12 08:00 | Outpatient (RCR) | payer MEDICARE, OTHER, SELFPAY ==
[2022-04-19 00:12] VITALS: BP 180/80; PULSE 60; RESP 18; TEMP 36.3; BMI 42.0
[2022-04-21 10:24] VITALS: BP 141/65; PULSE 75; RESP 20; TEMP 35.9; BMI 42.0
--- NOTE | 2022-04-21 15:26 | PN.PCM_ITS ---
History of Present Illness Date of Service: 04/21/22 Chief Complaint: nonhealing traumatic wound to left sellers, edema, ulcers of right sellers, right second toe and left great toe History of Wound: Arleen is here for evaluation and treatment of a nonhealing wound to her left sellers which occurred on 02/08/22 and also has developed increased edema and ulcers to bilateral LE and 2 ulcers of her toes that she noticed last week. The left sellers occurred when she was working in her yard and cut her left lower leg on a cart. She went to ER and 7 sutures were placed. She then started to have a reaction to the Betadine used to clean her skin and was seen by her PCP on 02/20/22 for suture removal. The area was red with some sloughing of the skin around the sutures and there was drainage and redness but she was just finishing up antibiotic treatment with cephalexin. She used antibiotic ointment and gauze and follows up a week later for recheck and the wound had large amount of slough and heavy drainage. Was referred for treatment to wound center but due to holidays and weather and her own traveling she was unable to be seen until 03/24/22. Over the time period since her referral she continued to have edema and in the past week she has had blisters which have been draining bilaterally and also notes open wounds to her right second toe and left great toe plantar that bled last week. She has not applied anything to her right leg or to the toe wounds/ulcers but has been using an ABD pad to her left sellers wound and had treated it with calcium alginate for 2 weeks after she was seen on 02/27/22 but ran out of the product. She has been wrapping the left leg with an NANCI wrap. Her most recent A1C was 6.4% in 2021. She is not currently taking any diuretics. She is unable to don compression stockings due to arthritis in her hands and back. She has chronic lower extremity edema with intermittent ulcers which have come and gone in the past. She denies fever or chills, increased drainage or erythema. Subjective Subjective Arleen returns today for follow up of multiple ulcers/wounds that are present on both legs and toes. She tolerated treatment with tubigrip compression of her right leg with healing of her right leg ulcers. The ulcers of the right lower leg have healed and the right toe is healed. The left sellers improved in size and the left toe is healed. She did not receive a call or shipment of Circaid compression wraps. She denies any fever, chills, increased erythema, drainage or pain. Objective Data Objective Data Vital Signs: Vital Signs Temp Pulse Resp BP 96.6 F L 75 20 H 141/65 H 04/21/22 10:24 04/21/22 10:24 04/21/22 10:24 04/21/22 10:24 Weight: 104.355 kg Body Mass Index (BMI) 42.0 Physical Exam Const alert, oriented x3 and no apparent distress General Appearance: cooperative and comfortable Nutritional Appearance: morbidly obese HEENT normocephalic and head/scalp atraumatic Resp normal respiratory effort Effort and Inspection: able to speak in complete sentences Cardio regular rate and regular rhythm Extremity General Extremity: edema bilateral lower extremity Details: moderate Skin General Skin Exam: venous stasis and dermatitis Wounds: wounds noted Wound Narrative: as in clinical panel Psych mental status grossly normal, thought process normal, cooperative and affect normal Debridement Note Debridement Note Wound debrided: left sellers Laterality: Left Type of Debridement: Excisional debridement Anesthesia Used: 4% Lidocaine Solution and 5% Lidocaine Gel Depth: Down to and including healthy tissue and in the subcutaneous layer Percentage of wound debrided: 100 Instrument Used: 3mm curette Tissue Removed: yellow slough, devitalized tissue Severity: Fat Layer Exposed Amount of bleeding with debridement: Mild Bleeding Controlled with: Compression and gauze Patient tolerated procedure: Patient tolerated procedure well Post-Debridement Measurements and Additional Note: Post-Debridement Measurements/Treatment - Nurse 1 - General Ulcer Assessment Start: 04/21/22 10:23 Freq: Status: Active Protocol: [email or web address] Activity Type Activity Date Activity User E-sign Co-sign Detail Recorded Client Recorded Date Recorded By Document 04/21/22 10:24 DL [id number] 04/21/22 10:30 DL 04/21/22 10:24 - Today's Visit Information Type of service Follow-up Visit (Physician/INSTRUMENT REPAIR SUPERVISOR ) Arrival Mode Ambulatory,Cane Transfer Assistance None Patient Identification Verified (Name & Yes ) Patient Requires Transmission-Based No Precautions Finger Stick Blood Sugar(mg/dl) (if not checked indicated): Blood Sugar Stated by Patient Height and Weight Body Mass Index (BMI) 42.0 BMI Classification Obese Vital Signs Temperature (97.8 F-99.1 F) 96.6 F L Temperature Source Temporal Pulse Rate (60-100) 75 Pulse Location Monitor Respiratory Rate (12-18) 20 H Respiratory rate source Observation Blood Pressure (90/60-120/80) 141/65 H Blood Pressure Mean (mm Hg) 90 Source Monitor History Since Last Visit- (Skip if this is Patient's initial visit) Have you changed medications since your No last visit? Any new allergies or adverse reactions No Had a fall/change in ADL's that may No increase risk of falls Signs or symptoms of abuse and/or No neglect since last visit Have you been in the hospital since your No last visit? Has dressing in place as prescribed Yes Has compression in place as prescribed Yes Has offloadiing in place as prescribed No Experienced any changes in pain level or No management Pain Scale: 0-10 Numeric Is Patient Pain Free? Yes WC - Nurse 1 - General Ulcer Measurement Start: 04/21/22 10:23 Freq: Status: Active Protocol: Activity Type Activity Date Activity User E-sign Co-sign Detail Recorded Client Recorded Date Recorded By Document 04/21/22 10:24 DL [id number] 04/21/22 10:30 DL 04/21/22 10:24 Wound Center Nurse 1 #1 left Sellers -Current Size (cm) - Length 0.6 -Current Size (cm) - Width 0.3 -Current Size (cm) - Depth 0.1 -Total Square Cm 0.18 -Photo Taken Yes -Exudate Amt Small -Exudate Type Serosanguineous -Wound Margin Distinct, Outline Attached -Granulation Amt Large (67-100%) -Granulation Quality [place],Red -Necrosis Amt None Present (0 %) -Structure Exposed N/A -Texture (Nena-wound Skin Appearance) Scarring -Moisture (Nena-wound Skin Appearance) No Abnormality -Color (Nena-wound Skin Appearance) Hemosiderin Staining -Temperature (Nena-wound Skin No Abnormality Appearance) (Pt Warm) -Tenderness on Palpation (Nena-wound No Skin Appearance) -Ulcer Cleansing Rinsed/ Irrigated with Saline -Foul Odor after Cleansing No -Anesthetic Used 5% Lidocaine Gel Left Calf (cm) 37 Left Ankle (cm) 21.5 WC - Nurse 2 - General Ulcer CM Notes Start: 04/21/22 10:23 Freq: Status: Active Protocol: Activity Type Activity Date Activity User E-sign Co-sign Detail Recorded Client Recorded Date Recorded By Document 04/21/22 11:08 MW [id number] 04/21/22 11:13 MW 04/21/22 11:08 Wound Center Nurse 2 #1 left Sellers -Time 11:08 -Correct Patient Yes -Correct Side, Site, Position Yes -Correct Procedure Yes -Procedure Performed Yes -Type of Procedure Debridement -Clinical Debridement Subcutaneous -Tissue Removed Subcutaneous -Tunneling No -Undermining/Tunneling No -Circular Undermining No -Wound/Ulcer Outcome Not Healed -Ulcer Cleansing Rinsed/ Irrigated with Saline -Foul Odor after Cleansing No -Bioengineered Tissue No -Bleeding Controlled with Pressure -Treatment Response Procedure Tolerated Well -Offloading No -Debridement - Subq, 1st 20sq cm Yes Pain Scale: 0-10 Numeric Is Patient Pain Free? Yes WC - Nurse 3 - General Ulcer D/C NN Start: 04/21/22 10:23 Freq: Status: Active Protocol: Activity Type Activity Date Activity User E-sign Co-sign Detail Recorded Client Recorded Date Recorded By Document 04/21/22 11:26 RB [id number] 04/21/22 11:27 RB 04/21/22 11:26 Wound Care Center Nurse 3 #1 left Sellers -Ulcer Cleansing Rinsed/ Irrigated with Saline -Primary Dressing Applied NonAdherent Contact Layer, Promogran, Mepilex Border -Mepilex Border 1 -Promogran 1 Right -Tubular Bandage Single Layer -Size of Tubigrip Used Size D -Size D ($) 1 Left -Tubular Bandage Single Layer -Size of Tubigrip Used Size D -Size D ($) 1 Treatment Response Procedure Tolerated Well Pain Scale: 0-10 Numeric Is Patient Pain Free? 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: CODE(S): I83.019 - Varicose veins of right lower extremity with ulcer of unspecified site; I83.029 - Varicose veins of left lower extremity with ulcer of unspecified site; L97.919 - Non-pressure chronic ulcer of unspecified part of right lower leg with unspecified severity; L97.929 - Non-pressure chronic ulcer of unspecified part of left lower leg with unspecified severity (3) Lymphedema associated with obesity: CODE(S): I89.0 - Lymphedema, not elsewhere classified; E66.9 - Obesity, unspecified (4) Venous insufficiency of both lower extremities: CODE(S): I87.2 - Venous insufficiency (chronic) (peripheral) (5) Skin ulcer of left great toe with fat layer exposed: CODE(S): L97.522 - Non-pressure chronic ulcer of other part of left foot with fat layer exposed (6) Ulcer of left great toe due to diabetes mellitus: CODE(S): E11.621 - Type 2 diabetes mellitus with foot ulcer; L97.529 - Non-pressure chronic ulcer of other part of left foot with unspecified severity (7) Ulcer of right second toe with fat layer exposed: CODE(S): L97.512 - Non-pressure chronic ulcer of other part of right foot with fat layer exposed (8) 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 At home wound-care instructions: Will have her continue to use tubigrip in single layer for compression of both legs. Left sellers will be dressed with Promogan and adaptic and covered with silicone bordered foam dressing for protection. Keep dressings clean and dry. Off-loading: The patient was instructed to avoid pressure and friction on the affected areas. Reposition every 2 hours at minimum. Avoid prolonged standing and/or dangling of legs. When seated, feet should be elevated at chest level. Frequent ambulation is encouraged. Diet: Patient encouraged to increase protein intake while taking caution to avoid high carbohydrate and/or sugar intake. Labs/cultures/imaging: none additional Follow-up: Return in 1 week for wound care follow up. Return sooner or report to the emergency room should symptoms worsen, or new symptoms arise. Note: [employer] speech recognition editorial specialist software was used to create portions of this document. Sound-alike and misspelled words, as well as other editorial specialist errors may be contained in the documentation.
[2022-04-28 10:22] VITALS: BP 138/88; PULSE 82; RESP 18; TEMP 35.8; BMI 42.0
--- NOTE | 2022-04-28 14:18 | PCM.WC.PN ---
History of Present Illness Date of Service: 04/28/22 Chief Complaint: nonhealing traumatic wound to left sellers, edema, ulcers of right sellers, right second toe and left great toe History of Wound: Arleen is here for evaluation and treatment of a nonhealing wound to her left sellers which occurred on 02/08/22 and also has developed increased edema and ulcers to bilateral LE and 2 ulcers of her toes that she noticed last week. The left sellers occurred when she was working in her yard and cut her left lower leg on a cart. She went to ER and 7 sutures were placed. She then started to have a reaction to the Betadine used to clean her skin and was seen by her PCP on 02/20/22 for suture removal. The area was red with some sloughing of the skin around the sutures and there was drainage and redness but she was just finishing up antibiotic treatment with cephalexin. She used antibiotic ointment and gauze and follows up a week later for recheck and the wound had large amount of slough and heavy drainage. Was referred for treatment to wound center but due to holidays and weather and her own traveling she was unable to be seen until 03/24/22. Over the time period since her referral she continued to have edema and in the past week she has had blisters which have been draining bilaterally and also notes open wounds to her right second toe and left great toe plantar that bled last week. She has not applied anything to her right leg or to the toe wounds/ulcers but has been using an ABD pad to her left sellers wound and had treated it with calcium alginate for 2 weeks after she was seen on 02/27/22 but ran out of the product. She has been wrapping the left leg with an NANCI wrap. Her most recent A1C was 6.4% in 2021. She is not currently taking any diuretics. She is unable to don compression stockings due to arthritis in her hands and back. She has chronic lower extremity edema with intermittent ulcers which have come and gone in the past. She denies fever or chills, increased drainage or erythema. Subjective Subjective Arleen returns today for follow up of multiple ulcers/wounds that are present on both legs and toes. She tolerated treatment with tubigrip compression of her right leg with healing of her right leg ulcers. The ulcers of the right lower leg have healed and the right toe is healed. The left sellers improved in size and the left toe is healed. She did not receive a call or shipment of Circaid compression wraps. She denies any fever, chills, increased erythema, drainage or pain. Objective Data Objective Data Vital Signs: Vital Signs Temp Pulse Resp BP 96.4 F L 82 18 138/88 H 04/28/22 10:22 04/28/22 10:22 04/28/22 10:22 04/28/22 10:22 Weight: 104.355 kg Body Mass Index (BMI) 42.0 Physical Exam Const alert, oriented x3 and no apparent distress General Appearance: cooperative and comfortable Nutritional Appearance: morbidly obese HEENT normocephalic and head/scalp atraumatic Resp normal respiratory effort Effort and Inspection: able to speak in complete sentences Cardio regular rate and regular rhythm Extremity General Extremity: edema bilateral lower extremity Details: moderate Skin General Skin Exam: venous stasis and dermatitis Wounds: wounds noted Wound Narrative: as in clinical panel Psych mental status grossly normal, thought process normal, cooperative and affect normal Debridement Note Debridement Note Wound debrided: left sellers Laterality: Left Type of Debridement: Excisional debridement Anesthesia Used: 4% Lidocaine Solution and 5% Lidocaine Gel Depth: Down to and including healthy tissue and in the subcutaneous layer Percentage of wound debrided: 100 Instrument Used: 3mm curette Tissue Removed: yellow slough, devitalized tissue Severity: Fat Layer Exposed Amount of bleeding with debridement: Mild Bleeding Controlled with: Compression and gauze Patient tolerated procedure: Patient tolerated procedure well Post-Debridement Measurements and Additional Note: Post-Debridement Measurements/Treatment - Nurse 1 - General Ulcer Assessment Start: 04/21/22 10:23 Freq: Status: Active Protocol: [facility] Activity Type Activity Date Activity User E-sign Co-sign Detail Recorded Client Recorded Date Recorded By Document 04/21/22 10:24 DL [id number] 04/21/22 10:30 DL Document 04/28/22 10:22 RB [id number] 04/28/22 10:33 RB 04/21/22 04/28/22 10:24 10:22 - Today's Visit Information Type of service Follow-up Visit Follow-up Visit (Physician/OPHTHALMIC NURSE (Physician/OPHTHALMIC NURSE ) ) Arrival Mode Ambulatory,Cane Ambulatory,Cane Transfer Assistance None None Patient Identification Verified (Name & Yes Yes ) Patient Requires Transmission-Based No No Precautions Finger Stick Blood Sugar(mg/dl) (if not checked indicated): Blood Sugar Stated by Patient Height and Weight Body Mass Index (BMI) 42.0 42.0 BMI Classification Obese Obese Vital Signs Temperature (97.8 F-99.1 F) 96.6 F L 96.4 F L Temperature Source Temporal Temporal Pulse Rate (60-100) 75 82 Pulse Location Monitor Apical Respiratory Rate (12-18) 20 H 18 Respiratory rate source Observation Observation Blood Pressure (90/60-120/80) 141/65 H 138/88 H Blood Pressure Mean (mm Hg) 90 104 Source Monitor Monitor Position Semi-Fowlers Blood Pressure Location Left Arm History Since Last Visit- (Skip if this is Patient's initial visit) Have you changed medications since your No No last visit? Any new allergies or adverse reactions No No Had a fall/change in ADL's that may No No increase risk of falls Signs or symptoms of abuse and/or No No neglect since last visit Have you been in the hospital since your No last visit? Has dressing in place as prescribed Yes Yes Has compression in place as prescribed Yes Yes Has offloadiing in place as prescribed No No Experienced any changes in pain level or No No management Pain Scale: 0-10 Numeric Is Patient Pain Free? Yes Yes WC - Nurse 1 - General Ulcer Measurement Start: 04/21/22 10:23 Freq: Status: Active Protocol: Activity Type Activity Date Activity User E-sign Co-sign Detail Recorded Client Recorded Date Recorded By Document 04/21/22 10:24 DL [id number] 04/21/22 10:30 DL Document 04/28/22 10:22 RB [id number] 04/28/22 10:33 RB 04/21/22 04/28/22 10:24 10:22 Wound Center Nurse 1 #1 left Sellers -Combined with other wound No -Current Size (cm) - Length 0.6 0.4 -Current Size (cm) - Width 0.3 1 -Current Size (cm) - Depth 0.1 0.1 -Total Square Cm 0.18 0.4 -Photo Taken Yes Yes -Tunneling No -Undermining/Tunneling No -Circular Undermining No -Exudate Amt Small Medium -Exudate Type Serosanguineous Serosanguineous -Wound Margin Distinct, Distinct, Outline Outline Attached Attached -Granulation Amt Large (67-100%) Medium (34-66%) -Granulation Quality [place],Red [place] -Slough/Fibrin Yes -Necrosis Amt None Present (0 Medium (34-66%) %) -Necrotic Tissue Type Adherent Slough -Structure Exposed N/A N/A -Texture (Nena-wound Skin Appearance) Scarring Assessed -Moisture (Nena-wound Skin Appearance) No Abnormality Assessed -Color (Nena-wound Skin Appearance) Hemosiderin Assessed Staining -Temperature (Nena-wound Skin No Abnormality No Abnormality Appearance) (Pt Warm) (Pt Warm) -Tenderness on Palpation (Nena-wound No No Skin Appearance) -Ulcer Cleansing Rinsed/ Wound Cleanser Irrigated with Saline -Foul Odor after Cleansing No No -Anesthetic Used 5% Lidocaine 5% Lidocaine Gel Gel Lower Limb Edema Present Yes Left Calf (cm) 37 36 Left Ankle (cm) 21.5 21 WC - Nurse 2 - General Ulcer CM Notes Start: 04/21/22 10:23 Freq: Status: Active Protocol: Activity Type Activity Date Activity User E-sign Co-sign Detail Recorded Client Recorded Date Recorded By Document 04/21/22 11:08 MW [id number] 04/21/22 11:13 MW Document 04/28/22 11:09 MW [id number] 04/28/22 11:12 MW 04/21/22 04/28/22 11:08 11:09 Wound Center Nurse 2 #1 left Sellers -Time 11:08 11:09 -Correct Patient Yes Yes -Correct Side, Site, Position Yes Yes -Correct Procedure Yes Yes -Procedure Performed Yes Yes -Type of Procedure Debridement Debridement -Clinical Debridement Subcutaneous Epidermis / Dermis -Tissue Removed Subcutaneous Epidermis -Post Debridement (cm) - Length 0.3 -Post Debridement (cm) - Width 0.7 -Post Debridement (cm) - Depth 0.1 -Total Square (Post) (cm) 0.21 -Area of Debridement (cm) - Length 0.3 -Area of Debridement (cm) - Width 0.7 -Total Square (Area) (cm) 0.21 -Tunneling No No -Undermining/Tunneling No No -Circular Undermining No No -Wound/Ulcer Outcome Not Healed Not Healed -Ulcer Cleansing Rinsed/ Rinsed/ Irrigated with Irrigated with Saline Saline -Foul Odor after Cleansing No No -Bioengineered Tissue No No -Bleeding Controlled with Pressure Pressure -Treatment Response Procedure Procedure Tolerated Well Tolerated Well -Offloading No No -Debridement - Open, 1st 20sq cm Yes -Debridement - Subq, 1st 20sq cm Yes Pain Scale: 0-10 Numeric Is Patient Pain Free? Yes Yes WC - Nurse 3 - General Ulcer D/C NN Start: 04/21/22 10:23 Freq: Status: Active Protocol: Activity Type Activity Date Activity User E-sign Co-sign Detail Recorded Client Recorded Date Recorded By Document 04/21/22 11:26 RB [id number] 04/21/22 11:27 RB Document 04/28/22 11:21 MT [id number] 04/28/22 11:26 MT 04/21/22 04/28/22 11:26 11:21 Wound Care Center Nurse 3 #1 left Sellers -Ulcer Cleansing Rinsed/ Irrigated with Saline -Primary Dressing Applied NonAdherent C Hydrogel ($), Contact Layer, Mepilex Border Promogran, Mepilex Border -Mepilex Border 1 1 -Promogran 1 Right -Tubular Bandage Single Layer Single Layer -Size of Tubigrip Used Size D Size D -Size D ($) 1 1 Left -Tubular Bandage Single Layer Single Layer -Size of Tubigrip Used Size D Size D -Size D ($) 1 1 Treatment Response Procedure Tolerated Well Pain Scale: 0-10 Numeric Is Patient Pain Free? 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: CODE(S): I83.019 - Varicose veins of right lower extremity with ulcer of unspecified site; I83.029 - Varicose veins of left lower extremity with ulcer of unspecified site; L97.919 - Non-pressure chronic ulcer of unspecified part of right lower leg with unspecified severity; L97.929 - Non-pressure chronic ulcer of unspecified part of left lower leg with unspecified severity (3) Lymphedema associated with obesity: CODE(S): I89.0 - Lymphedema, not elsewhere classified; E66.9 - Obesity, unspecified (4) Venous insufficiency of both lower extremities: CODE(S): I87.2 - Venous insufficiency (chronic) (peripheral) (5) Skin ulcer of left great toe with fat layer exposed: CODE(S): L97.522 - Non-pressure chronic ulcer of other part of left foot with fat layer exposed (6) Ulcer of left great toe due to diabetes mellitus: CODE(S): E11.621 - Type 2 diabetes mellitus with foot ulcer; L97.529 - Non-pressure chronic ulcer of other part of left foot with unspecified severity (7) Ulcer of right second toe with fat layer exposed: CODE(S): L97.512 - Non-pressure chronic ulcer of other part of right foot with fat layer exposed (8) 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 At home wound-care instructions: Will have her continue to use tubigrip in single layer for compression of both legs. Left sellers will be dressed with Promogan and adaptic and covered with silicone bordered foam dressing for protection. Keep dressings clean and dry. Off-loading: The patient was instructed to avoid pressure and friction on the affected areas. Reposition every 2 hours at minimum. Avoid prolonged standing and/or dangling of legs. When seated, feet should be elevated at chest level. Frequent ambulation is encouraged. Diet: Patient encouraged to increase protein intake while taking caution to avoid high carbohydrate and/or sugar intake. Labs/cultures/imaging: none additional Follow-up: Return in 1 week for wound care follow up. Return sooner or report to the emergency room should symptoms worsen, or new symptoms arise. Note: [employer] speech recognition assistant restaurant general manager software was used to create portions of this document. Sound-alike and misspelled words, as well as other assistant restaurant general manager errors may be contained in the documentation.
[2022-05-05 10:25] VITALS: BP 162/83; PULSE 64; RESP 20; TEMP 36.1; BMI 42.0
--- NOTE | 2022-05-05 15:16 | PN.PCM_ITS ---
History of Present Illness Date of Service: 05/12/22 Chief Complaint: nonhealing traumatic wound to left sellers, edema, ulcers of right sellers, right second toe and left great toe History of Wound: Arleen is here for evaluation and treatment of a nonhealing wound to her left sellers which occurred on 02/08/22 and also has developed increased edema and ulcers to bilateral LE and 2 ulcers of her toes that she noticed last week. The left sellers occurred when she was working in her yard and cut her left lower leg on a cart. She went to ER and 7 sutures were placed. She then started to have a reaction to the Betadine used to clean her skin and was seen by her PCP on 02/20/22 for suture removal. The area was red with some sloughing of the skin around the sutures and there was drainage and redness but she was just finishing up antibiotic treatment with cephalexin. She used antibiotic ointment and gauze and follows up a week later for recheck and the wound had large amount of slough and heavy drainage. Was referred for treatment to wound center but due to holidays and weather and her own traveling she was unable to be seen until 03/24/22. Over the time period since her referral she continued to have edema and in the past week she has had blisters which have been draining bilaterally and also notes open wounds to her right second toe and left great toe plantar that bled last week. She has not applied anything to her right leg or to the toe wounds/ulcers but has been using an ABD pad to her left sellers wound and had treated it with calcium alginate for 2 weeks after she was seen on 02/27/22 but ran out of the product. She has been wrapping the left leg with an NANCI wrap. Her most recent A1C was 6.4% in 2021. She is not currently taking any diuretics. She is unable to don compression stockings due to arthritis in her hands and back. She has chronic lower extremity edema with intermittent ulcers which have come and gone in the past. She denies fever or chills, increased drainage or erythema. Subjective Subjective Arleen returns today for follow up of multiple ulcers/wounds that are present on both legs and toes. She tolerated treatment with tubigrip compression of her right leg with healing of her right leg ulcers. The ulcers of the right lower leg have healed and the right toe is healed. The left sellers continues to improve in size and the left toe remains healed. She has had increased edema in her left leg. She denies any fever, chills, increased erythema, drainage or pain. Objective Data Objective Data Vital Signs: Vital Signs Temp Pulse Resp BP 97 F L 64 20 H 162/83 H 05/05/22 10:25 05/05/22 10:25 05/05/22 10:25 05/05/22 10:25 Weight: 104.355 kg Body Mass Index (BMI) 42.0 Physical Exam Const alert, oriented x3 and no apparent distress General Appearance: cooperative and comfortable Nutritional Appearance: morbidly obese HEENT normocephalic and head/scalp atraumatic Resp normal respiratory effort Effort and Inspection: able to speak in complete sentences Cardio regular rate and regular rhythm Extremity General Extremity: edema bilateral lower extremity Details: moderate Skin General Skin Exam: venous stasis and dermatitis Wounds: wounds noted Wound Narrative: as in clinical panel Psych mental status grossly normal, thought process normal, cooperative and affect normal Debridement Note Debridement Note Wound debrided: left sellers Laterality: Left Type of Debridement: Excisional debridement Anesthesia Used: 4% Lidocaine Solution and 5% Lidocaine Gel Depth: Down to and including healthy tissue and in the subcutaneous layer Percentage of wound debrided: 100 Instrument Used: 3mm curette Tissue Removed: yellow slough, devitalized tissue Severity: Fat Layer Exposed Amount of bleeding with debridement: Mild Bleeding Controlled with: Compression and gauze Patient tolerated procedure: Patient tolerated procedure well Post-Debridement Measurements and Additional Note: Post-Debridement Measurements/Treatment - Nurse 1 - General Ulcer Assessment Start: 04/21/22 10:23 Freq: Status: Active Protocol: [facility] Activity Type Activity Date Activity User E-sign Co-sign Detail Recorded Client Recorded Date Recorded By Document 04/21/22 10:24 DL [id number] 04/21/22 10:30 DL Document 04/28/22 10:22 RB [id number] 04/28/22 10:33 RB Document 05/05/22 10:25 DL [id number] 05/05/22 10:30 DL 04/21/22 04/28/22 05/05/22 10:24 10:22 10:25 - Today's Visit Information Type of service Follow-up Visit Follow-up Visit Follow-up Visit (Physician/SUPERVISOR BRAKE REPAIR (Physician/SUPERVISOR BRAKE REPAIR (Physician/SUPERVISOR BRAKE REPAIR ) ) ) Arrival Mode Ambulatory,Cane Ambulatory,Cane Ambulatory Transfer Assistance None None None Patient Identification Verified (Name & Yes Yes Yes ) Patient Requires Transmission-Based No No No Precautions Finger Stick Blood Sugar(mg/dl) (if not checked NOT CHECKED indicated): Blood Sugar Stated by Stated by Patient Patient Height and Weight Body Mass Index (BMI) 42.0 42.0 42.0 BMI Classification Obese Obese Obese Vital Signs Temperature (97.8 F-99.1 F) 96.6 F L 96.4 F L 97 F L Temperature Source Temporal Temporal Temporal Pulse Rate (60-100) 75 82 64 Pulse Location Monitor Apical Monitor Respiratory Rate (12-18) 20 H 18 20 H Respiratory rate source Observation Observation Observation Blood Pressure (90/60-120/80) 141/65 H 138/88 H 162/83 H Blood Pressure Mean (mm Hg) 90 104 109 Source Monitor Monitor Monitor Position Semi-Fowlers Blood Pressure Location Left Arm History Since Last Visit- (Skip if this is Patient's initial visit) Have you changed medications since your No No No last visit? Any new allergies or adverse reactions No No No Had a fall/change in ADL's that may No No No increase risk of falls Signs or symptoms of abuse and/or No No No neglect since last visit Have you been in the hospital since your No No last visit? Has dressing in place as prescribed Yes Yes No Has compression in place as prescribed Yes Yes Yes Has offloadiing in place as prescribed No No N/A Experienced any changes in pain level or No No No management Pain Scale: 0-10 Numeric Is Patient Pain Free? Yes Yes Yes WC - Nurse 1 - General Ulcer Measurement Start: 04/21/22 10:23 Freq: Status: Active Protocol: Activity Type Activity Date Activity User E-sign Co-sign Detail Recorded Client Recorded Date Recorded By Document 04/21/22 10:24 DL [id number] 04/21/22 10:30 DL Document 04/28/22 10:22 RB [id number] 04/28/22 10:33 RB Document 05/05/22 10:25 DL [id number] 05/05/22 10:30 DL 04/21/22 04/28/22 05/05/22 10:24 10:22 10:25 Wound Center Nurse 1 #1 left Sellers -Combined with other wound No -Current Size (cm) - Length 0.6 0.4 0.5 -Current Size (cm) - Width 0.3 1 0.8 -Current Size (cm) - Depth 0.1 0.1 0.1 -Total Square Cm 0.18 0.4 0.40 -Photo Taken Yes Yes -Tunneling No -Undermining/Tunneling No -Circular Undermining No -Exudate Amt Small Medium Medium -Exudate Type Serosanguineous Serosanguineous Serosanguineous -Wound Margin Distinct, Distinct, Distinct, Outline Outline Outline Attached Attached Attached -Granulation Amt Large (67-100%) Medium (34-66%) Medium (34-66%) -Granulation Quality [place],Red [place] -Slough/Fibrin Yes -Necrosis Amt None Present (0 Medium (34-66%) Medium (34-66%) %) -Necrotic Tissue Type Adherent Slough Adherent Slough -Structure Exposed N/A N/A N/A -Texture (Nena-wound Skin Appearance) Scarring Assessed Scarring -Moisture (Nena-wound Skin Appearance) No Abnormality Assessed No Abnormality -Color (Nena-wound Skin Appearance) Hemosiderin Assessed Hemosiderin Staining Staining -Temperature (Nena-wound Skin No Abnormality No Abnormality No Abnormality Appearance) (Pt Warm) (Pt Warm) (Pt Warm) -Tenderness on Palpation (Nena-wound No No No Skin Appearance) -Ulcer Cleansing Rinsed/ Wound Cleanser Rinsed/ Irrigated with Irrigated with Saline Saline -Foul Odor after Cleansing No No No -Anesthetic Used 5% Lidocaine 5% Lidocaine 5% Lidocaine Gel Gel Gel Lower Limb Edema Present Yes Left Calf (cm) 37 36 38 Left Ankle (cm) 21.5 21 22.5 WC - Nurse 2 - General Ulcer CM Notes Start: 04/21/22 10:23 Freq: Status: Active Protocol: Activity Type Activity Date Activity User E-sign Co-sign Detail Recorded Client Recorded Date Recorded By Document 04/21/22 11:08 MW [id number] 04/21/22 11:13 MW Document 04/28/22 11:09 MW [id number] 04/28/22 11:12 MW Document 05/05/22 11:34 MW [id number] 05/05/22 11:42 MW 04/21/22 04/28/22 05/05/22 11:08 11:09 11:34 Wound Center Nurse 2 #1 left Sellers -Time 11:08 11:09 11:35 -Correct Patient Yes Yes Yes -Correct Side, Site, Position Yes Yes Yes -Correct Procedure Yes Yes Yes -Procedure Performed Yes Yes Yes -Type of Procedure Debridement Debridement Debridement -Clinical Debridement Subcutaneous Epidermis / Epidermis / Dermis Dermis -Tissue Removed Subcutaneous Epidermis Epidermis -Post Debridement (cm) - Length 0.3 0.6 -Post Debridement (cm) - Width 0.7 1.3 -Post Debridement (cm) - Depth 0.1 0.1 -Total Square (Post) (cm) 0.21 0.78 -Area of Debridement (cm) - Length 0.3 0.6 -Area of Debridement (cm) - Width 0.7 1.3 -Total Square (Area) (cm) 0.21 0.78 -Tunneling No No No -Undermining/Tunneling No No No -Circular Undermining No No No -Wound/Ulcer Outcome Not Healed Not Healed Not Healed -Ulcer Cleansing Rinsed/ Rinsed/ Rinsed/ Irrigated with Irrigated with Irrigated with Saline Saline Saline -Foul Odor after Cleansing No No No -Bioengineered Tissue No No No -Bleeding Controlled with Pressure Pressure Pressure -Treatment Response Procedure Procedure Procedure Tolerated Well Tolerated Well Tolerated Well -Offloading No No No -Debridement - Open, 1st 20sq cm Yes Yes -Debridement - Subq, 1st 20sq cm Yes Pain Scale: 0-10 Numeric Is Patient Pain Free? Yes Yes Yes WC - Nurse 3 - General Ulcer D/C NN Start: 04/21/22 10:23 Freq: Status: Active Protocol: Activity Type Activity Date Activity User E-sign Co-sign Detail Recorded Client Recorded Date Recorded By Document 04/21/22 11:26 RB [id number] 04/21/22 11:27 RB Document 04/28/22 11:21 MT [id number] 04/28/22 11:26 MT Document 05/05/22 11:50 DL [id number] 05/05/22 11:55 DL 04/21/22 04/28/22 05/05/22 11:26 11:21 11:50 Wound Care Center Nurse 3 #1 left Sellers -Ulcer Cleansing Rinsed/ Rinsed/ Irrigated with Irrigated with Saline Saline -Foul Odor after Cleansing No -Primary Dressing Applied NonAdherent C Hydrogel ($), NonAdherent Contact Layer, Mepilex Border Contact Layer, Promogran, Promogran Mepilex Border -Other Dressing UNNA -Mepilex Border 1 1 -Promogran 1 1 Right -Tubular Bandage Single Layer Single Layer -Size of Tubigrip Used Size D Size D -Size D ($) 1 1 Left -Multi-Layered Wrap Application Unna Boot - Left ($) -Tubular Bandage Single Layer Single Layer -Size of Tubigrip Used Size D Size D -Size D ($) 1 1 Treatment Response Procedure Procedure Tolerated Well Tolerated Well Pain Scale: 0-10 Numeric Is Patient Pain Free? 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: CODE(S): I83.019 - Varicose veins of right lower extremity with ulcer of unspecified site; I83.029 - Varicose veins of left lower extremity with ulcer of unspecified site; L97.919 - Non-pressure chronic ulcer of unspecified part of right lower leg with unspecified severity; L97.929 - Non-pressure chronic ulcer of unspecified part of left lower leg with unspecified severity (3) Lymphedema associated with obesity: CODE(S): I89.0 - Lymphedema, not elsewhere classified; E66.9 - Obesity, unspecified (4) Venous insufficiency of both lower extremities: CODE(S): I87.2 - Venous insufficiency (chronic) (peripheral) (5) Skin ulcer of left great toe with fat layer exposed: CODE(S): L97.522 - Non-pressure chronic ulcer of other part of left foot with fat layer exposed (6) Ulcer of left great toe due to diabetes mellitus: CODE(S): E11.621 - Type 2 diabetes mellitus with foot ulcer; L97.529 - Non-pressure chronic ulcer of other part of left foot with unspecified severity (7) Ulcer of right second toe with fat layer exposed: CODE(S): L97.512 - Non-pressure chronic ulcer of other part of right foot with fat layer exposed (8) 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 At home wound-care instructions: Will have her continue to use tubigrip in single layer for compression of right leg. Left sellers will be dressed with Promogan and adaptic and UNNA boot compression. Keep dressings clean and dry. Off-loading: The patient was instructed to avoid pressure and friction on the affected areas. Reposition every 2 hours at minimum. Avoid prolonged standing and/or dangling of legs. When seated, feet should be elevated at chest level. Frequent ambulation is encouraged. Diet: Patient encouraged to increase protein intake while taking caution to avoid high carbohydrate and/or sugar intake. Labs/cultures/imaging: none additional Follow-up: Return in 1 week for wound care follow up. Return sooner or report to the emergency room should symptoms worsen, or new symptoms arise. Note: [employer] speech recognition district plant supervisor software was used to create portions of this document. Sound-alike and misspelled words, as well as other district plant supervisor errors may be contained in the documentation.
[2022-05-12 08:12] VITALS: BP 150/87; PULSE 58; RESP 17; TEMP 35.8; BMI 42.0
--- NOTE | 2022-05-12 13:00 | PCM.WC.PN ---
History of Present Illness Date of Service: 05/12/22 Chief Complaint: nonhealing traumatic wound to left sellers, edema, ulcers of right sellers, right second toe and left great toe History of Wound: Arleen is here for evaluation and treatment of a nonhealing wound to her left sellers which occurred on 02/08/22 and also has developed increased edema and ulcers to bilateral LE and 2 ulcers of her toes that she noticed last week. The left sellers occurred when she was working in her yard and cut her left lower leg on a cart. She went to ER and 7 sutures were placed. She then started to have a reaction to the Betadine used to clean her skin and was seen by her PCP on 02/20/22 for suture removal. The area was red with some sloughing of the skin around the sutures and there was drainage and redness but she was just finishing up antibiotic treatment with cephalexin. She used antibiotic ointment and gauze and follows up a week later for recheck and the wound had large amount of slough and heavy drainage. Was referred for treatment to wound center but due to holidays and weather and her own traveling she was unable to be seen until 03/24/22. Over the time period since her referral she continued to have edema and in the past week she has had blisters which have been draining bilaterally and also notes open wounds to her right second toe and left great toe plantar that bled last week. She has not applied anything to her right leg or to the toe wounds/ulcers but has been using an ABD pad to her left sellers wound and had treated it with calcium alginate for 2 weeks after she was seen on 02/27/22 but ran out of the product. She has been wrapping the left leg with an NANCI wrap. Her most recent A1C was 6.4% in 2021. She is not currently taking any diuretics. She is unable to don compression stockings due to arthritis in her hands and back. She has chronic lower extremity edema with intermittent ulcers which have come and gone in the past. She denies fever or chills, increased drainage or erythema. Subjective Subjective Arleen returns today for follow up of multiple ulcers/wounds that are present on both legs and toes. She tolerated treatment with tubigrip compression of her right leg with healing of her right leg ulcers. The ulcers of the right lower leg have healed and the right toe is healed. The left sellers continues to improve in size and the left toe remains healed. She tolerated treatment with UNNA boot and Promogran last week with significant improvement in the wound and her edema. She denies any fever, chills, increased erythema, drainage or pain. Objective Data Objective Data Vital Signs: Vital Signs Temp Pulse Resp BP 96.5 F L 58 L 17 150/87 H 05/12/22 08:12 05/12/22 08:12 05/12/22 08:12 05/12/22 08:12 Weight: 104.355 kg Body Mass Index (BMI) 42.0 Physical Exam Const alert, oriented x3 and no apparent distress General Appearance: cooperative and comfortable Nutritional Appearance: morbidly obese HEENT normocephalic and head/scalp atraumatic Resp normal respiratory effort Effort and Inspection: able to speak in complete sentences Cardio regular rate and regular rhythm Extremity General Extremity: edema bilateral lower extremity Details: moderate Skin General Skin Exam: venous stasis and dermatitis Wounds: wounds noted Wound Narrative: as in clinical panel Psych mental status grossly normal, thought process normal, cooperative and affect normal Debridement Note Debridement Note Wound debrided: left sellers Laterality: Left Type of Debridement: Selective debridement Anesthesia Used: 4% Lidocaine Solution and 5% Lidocaine Gel Depth: Down to and including healthy tissue Percentage of wound debrided: 100 Instrument Used: - (gauze) Tissue Removed: yellow slough, devitalized tissue Severity: Fat Layer Exposed Amount of bleeding with debridement: Mild Bleeding Controlled with: Compression and gauze Patient tolerated procedure: Patient tolerated procedure well Post-Debridement Measurements and Additional Note: Post-Debridement Measurements/Treatment WC - Nurse 1 - General Ulcer Assessment Start: 04/21/22 10:23 Freq: Status: Active Protocol: [email or web address] Activity Type Activity Date Activity User E-sign Co-sign Detail Recorded Client Recorded Date Recorded By Document 04/21/22 10:24 DL [id number] 04/21/22 10:30 DL Document 04/28/22 10:22 RB [id number] 04/28/22 10:33 RB Document 05/05/22 10:25 DL [id number] 05/05/22 10:30 DL Document 05/12/22 08:12 ML [id number] 05/12/22 08:20 ML 04/21/22 04/28/22 05/05/22 10:24 10:22 10:25 WC - Today's Visit Information Type of service Follow-up Visit Follow-up Visit Follow-up Visit (Physician/SEEING EYE DOG TEACHER (Physician/SEEING EYE DOG TEACHER (Physician/SEEING EYE DOG TEACHER ) ) ) Arrival Mode Ambulatory,Cane Ambulatory,Cane Ambulatory Transfer Assistance None None None Patient Identification Verified (Name & Yes Yes Yes ) Patient Requires Transmission-Based No No No Precautions Safety Precautions Finger Stick Blood Sugar(mg/dl) (if not checked NOT CHECKED indicated): Blood Sugar Stated by Stated by Patient Patient Height and Weight Body Mass Index (BMI) 42.0 42.0 42.0 BMI Classification Obese Obese Obese Vital Signs Temperature (97.8 F-99.1 F) 96.6 F L 96.4 F L 97 F L Temperature Source Temporal Temporal Temporal Pulse Rate (60-100) 75 82 64 Pulse Location Monitor Apical Monitor Respiratory Rate (12-18) 20 H 18 20 H Respiratory rate source Observation Observation Observation Blood Pressure (90/60-120/80) 141/65 H 138/88 H 162/83 H Blood Pressure Mean (mm Hg) 90 104 109 Source Monitor Monitor Monitor Position Semi-Fowlers Blood Pressure Location Left Arm History Since Last Visit- (Skip if this is Patient's initial visit) Have you changed medications since your No No No last visit? Any new allergies or adverse reactions No No No Had a fall/change in ADL's that may No No No increase risk of falls Signs or symptoms of abuse and/or No No No neglect since last visit Have you been in the hospital since your No No last visit? Has dressing in place as prescribed Yes Yes No Has compression in place as prescribed Yes Yes Yes Has offloadiing in place as prescribed No No N/A Experienced any changes in pain level or No No No management Left Footwear Right Footwear Pain Scale: 0-10 Numeric Is Patient Pain Free? Yes Yes Yes 05/12/22 08:12 WC - Today's Visit Information Type of service Follow-up Visit (Physician/SEEING EYE DOG TEACHER ) Arrival Mode Cane Transfer Assistance None Patient Identification Verified (Name & Yes ) Patient Requires Transmission-Based No Precautions Safety Precautions NA Finger Stick Blood Sugar(mg/dl) (if indicated): Blood Sugar Height and Weight Body Mass Index (BMI) 42.0 BMI Classification Obese Vital Signs Temperature (97.8 F-99.1 F) 96.5 F L Temperature Source Temporal Pulse Rate (60-100) 58 L Pulse Location Monitor Respiratory Rate (12-18) 17 Respiratory rate source Observation Blood Pressure (90/60-120/80) 150/87 H Blood Pressure Mean (mm Hg) 108 Source Monitor Position Sitting Blood Pressure Location Left Arm History Since Last Visit- (Skip if this is Patient's initial visit) Have you changed medications since your No last visit? Any new allergies or adverse reactions No Had a fall/change in ADL's that may No increase risk of falls Signs or symptoms of abuse and/or No neglect since last visit Have you been in the hospital since your No last visit? Has dressing in place as prescribed Yes Has compression in place as prescribed Yes Has offloadiing in place as prescribed N/A Experienced any changes in pain level or No management Left Footwear Regular Shoe Right Footwear Regular Shoe Pain Scale: 0-10 Numeric Is Patient Pain Free? Yes WC - Nurse 1 - General Ulcer Measurement Start: 04/21/22 10:23 Freq: Status: Active Protocol: Activity Type Activity Date Activity User E-sign Co-sign Detail Recorded Client Recorded Date Recorded By Document 04/21/22 10:24 DL [id number] 04/21/22 10:30 DL Document 04/28/22 10:22 RB [id number] 04/28/22 10:33 RB Document 05/05/22 10:25 DL [id number] 05/05/22 10:30 DL Document 05/12/22 08:12 ML [id number] 05/12/22 08:20 ML 04/21/22 04/28/22 05/05/22 10:24 10:22 10:25 Wound Center Nurse 1 #1 left Sellers -Combined with other wound No -Current Size (cm) - Length 0.6 0.4 0.5 -Current Size (cm) - Width 0.3 1 0.8 -Current Size (cm) - Depth 0.1 0.1 0.1 -Total Square Cm 0.18 0.4 0.40 -Photo Taken Yes Yes -Tunneling No -Undermining/Tunneling No -Circular Undermining No -Exudate Amt Small Medium Medium -Exudate Type Serosanguineous Serosanguineous Serosanguineous -Wound Margin Distinct, Distinct, Distinct, Outline Outline Outline Attached Attached Attached -Granulation Amt Large (67-100%) Medium (34-66%) Medium (34-66%) -Granulation Quality [place],Red [place] -Slough/Fibrin Yes -Necrosis Amt None Present (0 Medium (34-66%) Medium (34-66%) %) -Necrotic Tissue Type Adherent Slough Adherent Slough -Structure Exposed N/A N/A N/A -Texture (Nena-wound Skin Appearance) Scarring Assessed Scarring -Moisture (Nena-wound Skin Appearance) No Abnormality Assessed No Abnormality -Color (Nena-wound Skin Appearance) Hemosiderin Assessed Hemosiderin Staining Staining -Temperature (Nena-wound Skin No Abnormality No Abnormality No Abnormality Appearance) (Pt Warm) (Pt Warm) (Pt Warm) -Tenderness on Palpation (Nena-wound No No No Skin Appearance) -Ulcer Cleansing Rinsed/ Wound Cleanser Rinsed/ Irrigated with Irrigated with Saline Saline -Foul Odor after Cleansing No No No -Anesthetic Used 5% Lidocaine 5% Lidocaine 5% Lidocaine Gel Gel Gel Lower Limb Edema Present Yes Left Calf (cm) 37 36 38 Left Ankle (cm) 21.5 21 22.5 05/12/22 08:12 Wound Center Nurse 1 #1 left Sellers -Combined with other wound -Current Size (cm) - Length 0.1 -Current Size (cm) - Width 0.1 -Current Size (cm) - Depth 0.1 -Total Square Cm 0.01 -Photo Taken -Tunneling -Undermining/Tunneling -Circular Undermining -Exudate Amt -Exudate Type -Wound Margin -Granulation Amt -Granulation Quality -Slough/Fibrin -Necrosis Amt None Present (0 %) -Necrotic Tissue Type -Structure Exposed -Texture (Nena-wound Skin Appearance) Assessed -Moisture (Nena-wound Skin Appearance) Assessed -Color (Nena-wound Skin Appearance) Assessed -Temperature (Nena-wound Skin No Abnormality Appearance) (Pt Warm) -Tenderness on Palpation (Nena-wound No Skin Appearance) -Ulcer Cleansing Soap and Water -Foul Odor after Cleansing No -Anesthetic Used 5% Lidocaine Gel Lower Limb Edema Present Left Calf (cm) 32 Left Ankle (cm) 22.5 WC - Nurse 2 - General Ulcer CM Notes Start: 04/21/22 10:23 Freq: Status: Active Protocol: Activity Type Activity Date Activity User E-sign Co-sign Detail Recorded Client Recorded Date Recorded By Document 04/21/22 11:08 MW [id number] 04/21/22 11:13 MW Document 04/28/22 11:09 MW [id number] 04/28/22 11:12 MW Document 05/05/22 11:34 MW [id number] 05/05/22 11:42 MW Document 05/12/22 08:25 MW [id number] 05/12/22 08:30 MW 04/21/22 04/28/22 05/05/22 11:08 11:09 11:34 Wound Center Nurse 2 #1 left Sellers -Time 11:08 11:09 11:35 -Correct Patient Yes Yes Yes -Correct Side, Site, Position Yes Yes Yes -Correct Procedure Yes Yes Yes -Procedure Performed Yes Yes Yes -Type of Procedure Debridement Debridement Debridement -Clinical Debridement Subcutaneous Epidermis / Epidermis / Dermis Dermis -Tissue Removed Subcutaneous Epidermis Epidermis -Post Debridement (cm) - Length 0.3 0.6 -Post Debridement (cm) - Width 0.7 1.3 -Post Debridement (cm) - Depth 0.1 0.1 -Total Square (Post) (cm) 0.21 0.78 -Area of Debridement (cm) - Length 0.3 0.6 -Area of Debridement (cm) - Width 0.7 1.3 -Total Square (Area) (cm) 0.21 0.78 -Tunneling No No No -Undermining/Tunneling No No No -Circular Undermining No No No -Wound/Ulcer Outcome Not Healed Not Healed Not Healed -Ulcer Cleansing Rinsed/ Rinsed/ Rinsed/ Irrigated with Irrigated with Irrigated with Saline Saline Saline -Foul Odor after Cleansing No No No -Bioengineered Tissue No No No -Bleeding Controlled with Pressure Pressure Pressure -Treatment Response Procedure Procedure Procedure Tolerated Well Tolerated Well Tolerated Well -Offloading No No No -Debridement - Open, 1st 20sq cm Yes Yes -Debridement - Subq, 1st 20sq cm Yes Pain Scale: 0-10 Numeric Is Patient Pain Free? Yes Yes Yes 05/12/22 08:25 Wound Center Nurse 2 #1 left Sellers -Time 08:25 -Correct Patient Yes -Correct Side, Site, Position Yes -Correct Procedure Yes -Procedure Performed Yes -Type of Procedure Debridement -Clinical Debridement Epidermis / Dermis -Tissue Removed Epidermis -Post Debridement (cm) - Length 0.1 -Post Debridement (cm) - Width 0.2 -Post Debridement (cm) - Depth 0.1 -Total Square (Post) (cm) 0.02 -Area of Debridement (cm) - Length 0.1 -Area of Debridement (cm) - Width 0.2 -Total Square (Area) (cm) 0.02 -Tunneling No -Undermining/Tunneling No -Circular Undermining No -Wound/Ulcer Outcome Not Healed -Ulcer Cleansing Rinsed/ Irrigated with Saline -Foul Odor after Cleansing No -Bioengineered Tissue No -Bleeding Controlled with Pressure -Treatment Response Procedure Tolerated Well -Offloading No -Debridement - Open, 1st 20sq cm Yes -Debridement - Subq, 1st 20sq cm Pain Scale: 0-10 Numeric Is Patient Pain Free? Yes - Nurse 3 - General Ulcer D/C NN Start: 04/21/22 10:23 Freq: Status: Active Protocol: Activity Type Activity Date Activity User E-sign Co-sign Detail Recorded Client Recorded Date Recorded By Document 04/21/22 11:26 RB [id number] 04/21/22 11:27 RB Document 04/28/22 11:21 MT [id number] 04/28/22 11:26 MT Document 05/05/22 11:50 DL [id number] 05/05/22 11:55 DL Document 05/12/22 08:30 MW [id number] 05/12/22 08:31 MW 04/21/22 04/28/22 05/05/22 11:26 11:21 11:50 Wound Care Center Nurse 3 #1 left Sellers -Ulcer Cleansing Rinsed/ Rinsed/ Irrigated with Irrigated with Saline Saline -Foul Odor after Cleansing No -Negative Pressure Wound Therapy -Primary Dressing Applied NonAdherent C Hydrogel ($), NonAdherent Contact Layer, Mepilex Border Contact Layer, Promogran, Promogran Mepilex Border -Other Dressing UNNA -Primary Dressing Covered/Secured with -Mepilex Border 1 1 -Promogran 1 1 Right -Tubular Bandage Single Layer Single Layer -Size of Tubigrip Used Size D Size D -Size D ($) 1 1 Left -Lotion applied to leg before compression wrap -Multi-Layered Wrap Application Unna Boot - Left ($) -Tubular Bandage Single Layer Single Layer -Size of Tubigrip Used Size D Size D -Size D ($) 1 1 Treatment Response Procedure Procedure Tolerated Well Tolerated Well Pain Scale: 0-10 Numeric Is Patient Pain Free? Yes Yes Yes Teaching: Wound Center Compression Wraps & Stockings -Person Taught -Teaching Method -Response to teaching Dressing Your Wound -Person Taught -Teaching Method -Response to teaching WC - Visit Discharge Discharge Condition Stable Stable Stable Ambulatory Status Ambulatory Ambulatory Ambulatory Transportation Private Auto Private Auto Private Auto Accompanied by Medication Reconcilliation completed & No No provided to patient/care provider Clinical Summary of Care Provided Yes Yes 05/12/22 08:30 Wound Care Center Nurse 3 #1 left Sellers -Ulcer Cleansing Rinsed/ Irrigated with Saline -Foul Odor after Cleansing No -Negative Pressure Wound Therapy N/A -Primary Dressing Applied NonAdherent Contact Layer, Mepilex Border -Other Dressing c.hydrogel -Primary Dressing Covered/Secured with Dry Gauze & Roll Gauze, Secured with Tape -Mepilex Border 1 -Promogran Right -Tubular Bandage -Size of Tubigrip Used -Size D ($) Left -Lotion applied to leg before No compression wrap -Multi-Layered Wrap Application -Tubular Bandage Single Layer -Size of Tubigrip Used Size D -Size D ($) 1 Treatment Response Procedure Tolerated Well Pain Scale: 0-10 Numeric Is Patient Pain Free? Yes Teaching: Wound Center Compression Wraps & Stockings -Person Taught Family -Teaching Method Discussion -Response to teaching Verbalize understanding Dressing Your Wound -Person Taught Patient -Teaching Method Discussion -Response to teaching Verbalize understanding WC - Visit Discharge Discharge Condition Stable Ambulatory Status Ambulatory Transportation Private Auto Accompanied by self Medication Reconcilliation completed & No provided to patient/care provider Clinical Summary of Care Provided Yes Assessment/Plan Assessment/Plan (1) Diabetes type 2, controlled: CODE(S): E11.9 - Type 2 diabetes mellitus without complications (2) 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: CODE(S): I83.019 - Varicose veins of right lower extremity with ulcer of unspecified site; I83.029 - Varicose veins of left lower extremity with ulcer of unspecified site; L97.919 - Non-pressure chronic ulcer of unspecified part of right lower leg with unspecified severity; L97.929 - Non-pressure chronic ulcer of unspecified part of left lower leg with unspecified severity (3) Lymphedema associated with obesity: CODE(S): I89.0 - Lymphedema, not elsewhere classified; E66.9 - Obesity, unspecified (4) Venous insufficiency of both lower extremities: CODE(S): I87.2 - Venous insufficiency (chronic) (peripheral) (5) Skin ulcer of left great toe with fat layer exposed: CODE(S): L97.522 - Non-pressure chronic ulcer of other part of left foot with fat layer exposed (6) Ulcer of left great toe due to diabetes mellitus: CODE(S): E11.621 - Type 2 diabetes mellitus with foot ulcer; L97.529 - Non-pressure chronic ulcer of other part of left foot with unspecified severity (7) Ulcer of right second toe with fat layer exposed: CODE(S): L97.512 - Non-pressure chronic ulcer of other part of right foot with fat layer exposed (8) 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 At home wound-care instructions: Will have her continue to use tubigrip in single layer for compression of right leg. Left sellers will be dressed with Promogan and adaptic and will have her do the tubigrip for compression again. Keep dressings clean and dry. Off-loading: The patient was instructed to avoid pressure and friction on the affected areas. Reposition every 2 hours at minimum. Avoid prolonged standing and/or dangling of legs. When seated, feet should be elevated at or above chest level. Frequent ambulation is encouraged. Diet: Patient encouraged to increase protein intake while taking caution to avoid high carbohydrate and/or sugar intake. Labs/cultures/imaging: none additional Follow-up: Return in 1 week for wound care follow up. Return sooner or report to the emergency room should symptoms worsen, or new symptoms arise. Note: [employer] speech recognition diesel truck crane operator software was used to create portions of this document. Sound-alike and misspelled words, as well as other diesel truck crane operator errors may be contained in the documentation.
== END 2022-05-16 23:59 | disposition home or self-care (01) ==
LOC: WC 08:00
PROVIDERS: PCP Family Medicine; Visit Provider Family Medicine
DX: I83.028 Varicose veins of left lower extremity with ulcer other part of lower leg (principal); E11.622 Type 2 diabetes mellitus with other skin ulcer; L97.822 Non-pressure chronic ulcer of other part of left lower leg with fat layer exposed; R60.0 Localized edema; I10 Essential (primary) hypertension; M79.7 Fibromyalgia
CPT/HCPCS: 11042; 29580; 97597

== ENCOUNTER 2022-06-16 11:00 | Outpatient (RCR) | payer MEDICARE, OTHER, SELFPAY ==
[2022-05-17 00:11] VITALS: BP 150/87; PULSE 58; RESP 17; TEMP 35.8; BMI 42.0
[2022-06-02 10:21] VITALS: BP 181/67; PULSE 62; RESP 18; TEMP 36.1; BMI 42.0
--- NOTE | 2022-06-02 13:54 | PN.PCM_ITS ---
History of Present Illness Date of Service: 06/02/22 Chief Complaint: nonhealing traumatic wound to left sellers, edema, ulcers of right sellers, right second toe and left great toe History of Wound: Arleen is here for evaluation and treatment of a nonhealing wound to her left sellers which occurred on 02/08/22 and also has developed increased edema and ulcers to bilateral LE and 2 ulcers of her toes that she noticed last week. The left sellers occurred when she was working in her yard and cut her left lower leg on a cart. She went to ER and 7 sutures were placed. She then started to have a reaction to the Betadine used to clean her skin and was seen by her PCP on 02/20/22 for suture removal. The area was red with some sloughing of the skin around the sutures and there was drainage and redness but she was just finishing up antibiotic treatment with cephalexin. She used antibiotic ointment and gauze and follows up a week later for recheck and the wound had large amount of slough and heavy drainage. Was referred for treatment to wound center but due to holidays and weather and her own traveling she was unable to be seen until 03/24/22. Over the time period since her referral she continued to have edema and in the past week she has had blisters which have been draining bilaterally and also notes open wounds to her right second toe and left great toe plantar that bled last week. She has not applied anything to her right leg or to the toe wounds/ulcers but has been using an ABD pad to her left sellers wound and had treated it with calcium alginate for 2 weeks after she was seen on 02/27/22 but ran out of the product. She has been wrapping the left leg with an NANCI wrap. Her most recent A1C was 6.4% in 2021. She is not currently taking any diuretics. She is unable to don compression stockings due to arthritis in her hands and back. She has chronic lower extremity edema with intermittent ulcers which have come and gone in the past. She denies fever or chills, increased drainage or erythema. Subjective Subjective Arleen returns today for follow up of left lower leg ulcer. She is tolerating treatment with tubigrip compression of her right leg with healing of her right leg ulcers. The ulcers of the right lower leg have healed and the right toe is healed. The left sellers continues to improve in size and the left toe remains healed. She tolerated treatment with Promogran and adaptic and silicone foam dressing. She denies any fever, chills, increased erythema, drainage or pain. Objective Data Objective Data Vital Signs: Vital Signs Temp Pulse Resp BP 97 F L 62 18 181/67 H 06/02/22 10:21 06/02/22 10:21 06/02/22 10:21 06/02/22 10:21 Weight: 104.355 kg Body Mass Index (BMI) 42.0 Physical Exam Const alert, oriented x3 and no apparent distress General Appearance: cooperative and comfortable Nutritional Appearance: morbidly obese HEENT normocephalic and head/scalp atraumatic Resp normal respiratory effort Effort and Inspection: able to speak in complete sentences Cardio regular rate and regular rhythm Extremity General Extremity: edema bilateral lower extremity Details: moderate Skin General Skin Exam: venous stasis and dermatitis Wounds: wounds noted Wound Narrative: as in clinical panel Psych mental status grossly normal, thought process normal, cooperative and affect normal Debridement Note Debridement Note Wound debrided: left sellers Laterality: Left Type of Debridement: Selective debridement Anesthesia Used: 4% Lidocaine Solution and 5% Lidocaine Gel Depth: Down to and including healthy tissue Percentage of wound debrided: 100 Instrument Used: 3mm curette Tissue Removed: yellow slough, devitalized tissue Severity: Fat Layer Exposed Amount of bleeding with debridement: Mild Bleeding Controlled with: Compression and gauze Patient tolerated procedure: Patient tolerated procedure well Post-Debridement Measurements and Additional Note: Post-Debridement Measurements/Treatment - Nurse 1 - General Ulcer Assessment Start: 06/02/22 10:21 Freq: Status: Active Protocol: [facility] Activity Type Activity Date Activity User E-sign Co-sign Detail Recorded Client Recorded Date Recorded By Document 06/02/22 10:21 [id number] 06/02/22 10:27 RB 06/02/22 10:21 - Today's Visit Information Type of service Follow-up Visit (Physician/PHLEBOTOMIST ASSOCIATE ) Arrival Mode Ambulatory Transfer Assistance None Patient Identification Verified (Name & Yes ) Patient Requires Transmission-Based No Precautions Height and Weight Body Mass Index (BMI) 42.0 BMI Classification Obese Vital Signs Temperature (97.8 F-99.1 F) 97 F L Temperature Source Temporal Pulse Rate (60-100) 62 Pulse Location Monitor Respiratory Rate (12-18) 18 Respiratory rate source Observation Blood Pressure (90/60-120/80) 181/67 H Blood Pressure Mean (mm Hg) 105 Source Monitor Position Semi-Fowlers Blood Pressure Location Left Arm History Since Last Visit- (Skip if this is Patient's initial visit) Have you changed medications since your No last visit? Any new allergies or adverse reactions No Had a fall/change in ADL's that may No increase risk of falls Signs or symptoms of abuse and/or No neglect since last visit Have you been in the hospital since your No last visit? Has dressing in place as prescribed Yes Has compression in place as prescribed Yes Has offloadiing in place as prescribed No Experienced any changes in pain level or No management Pain Scale: 0-10 Numeric Is Patient Pain Free? Yes WC - Nurse 1 - General Ulcer Measurement Start: 06/02/22 10:21 Freq: Status: Active Protocol: Activity Type Activity Date Activity User E-sign Co-sign Detail Recorded Client Recorded Date Recorded By Document 06/02/22 10:21 KEHINDE [id number] 06/02/22 10:27 KEHINDE 06/02/22 10:21 Wound Center Nurse 1 #1 left Sellers -Combined with other wound No -Current Size (cm) - Length 0.3 -Current Size (cm) - Width 0.3 -Current Size (cm) - Depth 0.1 -Total Square Cm 0.09 -Photo Taken Yes -Tunneling No -Undermining/Tunneling No -Circular Undermining No -Granulation Amt Medium (34-66%) -Granulation Quality Emerado -Slough/Fibrin Yes -Necrosis Amt Medium (34-66%) -Necrotic Tissue Type Adherent Slough -Structure Exposed N/A -Texture (Nena-wound Skin Appearance) Assessed -Moisture (Nena-wound Skin Appearance) Assessed -Color (Nena-wound Skin Appearance) Assessed -Temperature (Nena-wound Skin No Abnormality Appearance) (Pt Warm) -Tenderness on Palpation (Nena-wound No Skin Appearance) -Ulcer Cleansing Wound Cleanser -Foul Odor after Cleansing No -Anesthetic Used 5% Lidocaine Gel Left Calf (cm) 35 Left Ankle (cm) 22 WC - Nurse 2 - General Ulcer CM Notes Start: 06/02/22 10:21 Freq: Status: Active Protocol: Activity Type Activity Date Activity User E-sign Co-sign Detail Recorded Client Recorded Date Recorded By Document 06/02/22 11:06 MW [id number] 06/02/22 11:09 MW 06/02/22 11:06 Wound Center Nurse 2 #1 left Sellers -Time 11:06 -Correct Patient Yes -Correct Side, Site, Position Yes -Correct Procedure Yes -Procedure Performed Yes -Type of Procedure Debridement -Clinical Debridement Subcutaneous -Tissue Removed Subcutaneous -Post Debridement (cm) - Length 0.4 -Post Debridement (cm) - Width 0.4 -Post Debridement (cm) - Depth 0.1 -Total Square (Post) (cm) 0.16 -Area of Debridement (cm) - Length 0.4 -Area of Debridement (cm) - Width 0.4 -Total Square (Area) (cm) 0.16 -Tunneling No -Undermining/Tunneling No -Circular Undermining No -Wound/Ulcer Outcome Not Healed -Ulcer Cleansing Rinsed/ Irrigated with Saline -Foul Odor after Cleansing No -Bioengineered Tissue No -Bleeding Controlled with Pressure -Treatment Response Procedure Tolerated Well -Offloading No -Debridement - Subq, 1st 20sq cm Yes Pain Scale: 0-10 Numeric Is Patient Pain Free? Yes WC - Nurse 3 - General Ulcer D/C NN Start: 06/02/22 10:21 Freq: Status: Active Protocol: Activity Type Activity Date Activity User E-sign Co-sign Detail Recorded Client Recorded Date Recorded By Document 06/02/22 11:19 MW [id number] 06/02/22 11:20 MW 06/02/22 11:19 Wound Care Center Nurse 3 #1 left Sellers -Ulcer Cleansing Rinsed/ Irrigated with Saline -Foul Odor after Cleansing No -Negative Pressure Wound Therapy N/A -Primary Dressing Applied C Hydrogel ($), Promogran, Mepilex Border -Mepilex Border 1 -Promogran 1 Right -Lotion applied to leg before No compression wrap -Tubular Bandage Single Layer -Size of Tubigrip Used Size D -Size D ($) 1 Left -Lotion applied to leg before No compression wrap -Tubular Bandage Single Layer -Size of Tubigrip Used Size D -Size D ($) 1 Pain Scale: 0-10 Numeric Is Patient Pain Free? 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: CODE(S): I83.019 - Varicose veins of right lower extremity with ulcer of unspecified site; I83.029 - Varicose veins of left lower extremity with ulcer of unspecified site; L97.919 - Non-pressure chronic ulcer of unspecified part of right lower leg with unspecified severity; L97.929 - Non-pressure chronic ulcer of unspecified part of left lower leg with unspecified severity (3) Lymphedema associated with obesity: CODE(S): I89.0 - Lymphedema, not elsewhere classified; E66.9 - Obesity, unspecified (4) Venous insufficiency of both lower extremities: CODE(S): I87.2 - Venous insufficiency (chronic) (peripheral) (5) Skin ulcer of left great toe with fat layer exposed: CODE(S): L97.522 - Non-pressure chronic ulcer of other part of left foot with fat layer exposed (6) Ulcer of left great toe due to diabetes mellitus: CODE(S): E11.621 - Type 2 diabetes mellitus with foot ulcer; L97.529 - Non-pressure chronic ulcer of other part of left foot with unspecified severity (7) Ulcer of right second toe with fat layer exposed: CODE(S): L97.512 - Non-pressure chronic ulcer of other part of right foot with fat layer exposed (8) 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 At home wound-care instructions: Will have her continue to use tubigrip in single layer for compression of right leg. Left sellers will be dressed with Promogan, collagen hydrogel and adaptic, covered with silicone foam bordered dressing and will have her do the tubigrip for compression again. Keep dressings clean and dry. Off-loading: The patient was instructed to avoid pressure and friction on the affected areas. Reposition every 2 hours at minimum. Avoid prolonged standing and/or dangling of legs. When seated, feet should be elevated at or above chest level. Frequent ambulation is encouraged. Diet: Patient encouraged to increase protein intake while taking caution to avoid high carbohydrate and/or sugar intake. Labs/cultures/imaging: none additional Follow-up: Return in 1 week for wound care follow up. Return sooner or report to the emergency room should symptoms worsen, or new symptoms arise. Note: [employer] speech recognition utility worker production software was used to create portions of this document. Sound-alike and misspelled words, as well as other utility worker production errors may be contained in the documentation.
[2022-06-16 10:52] VITALS: BP 151/81; PULSE 65; RESP 18; TEMP 35.8; BMI 42.0
--- NOTE | 2022-06-16 14:26 | PN.PCM_ITS ---
History of Present Illness Date of Service: 06/16/22 Chief Complaint: nonhealing traumatic wound to left sellers, edema, ulcers of right sellers, right second toe and left great toe History of Wound: Arleen is here for evaluation and treatment of a nonhealing wound to her left sellers which occurred on 02/08/22 and also has developed increased edema and ulcers to bilateral LE and 2 ulcers of her toes that she noticed last week. The left sellers occurred when she was working in her yard and cut her left lower leg on a cart. She went to ER and 7 sutures were placed. She then started to have a reaction to the Betadine used to clean her skin and was seen by her PCP on 02/20/22 for suture removal. The area was red with some sloughing of the skin around the sutures and there was drainage and redness but she was just finishing up antibiotic treatment with cephalexin. She used antibiotic ointment and gauze and follows up a week later for recheck and the wound had large amount of slough and heavy drainage. Was referred for treatment to wound center but due to holidays and weather and her own traveling she was unable to be seen until 03/24/22. Over the time period since her referral she continued to have edema and in the past week she has had blisters which have been draining bilaterally and also notes open wounds to her right second toe and left great toe plantar that bled last week. She has not applied anything to her right leg or to the toe wounds/ulcers but has been using an ABD pad to her left sellers wound and had treated it with calcium alginate for 2 weeks after she was seen on 02/27/22 but ran out of the product. She has been wrapping the left leg with an NANCI wrap. Her most recent A1C was 6.4% in 2021. She is not currently taking any diuretics. She is unable to don compression stockings due to arthritis in her hands and back. She has chronic lower extremity edema with intermittent ulcers which have come and gone in the past. She denies fever or chills, increased drainage or erythema. Subjective Subjective Arleen returns today for follow up of left lower leg ulcer. She is tolerating treatment with tubigrip compression of her right leg with healing of her right leg ulcers. The ulcers of the right lower leg have healed and the right toe is healed. The left sellers continues to improve in size and the left toe remains healed. She tolerated treatment with Promogran and adaptic and silicone foam dressing.It is nearly healed today. She denies any fever, chills, increased erythema, drainage or pain. Objective Data Objective Data Vital Signs: Vital Signs Temp Pulse Resp BP 96.5 F L 65 18 151/81 H 06/16/22 10:52 06/16/22 10:52 06/16/22 10:52 06/16/22 10:52 Weight: 104.355 kg Body Mass Index (BMI) 42.0 Physical Exam Const alert, oriented x3 and no apparent distress General Appearance: cooperative and comfortable Nutritional Appearance: morbidly obese HEENT normocephalic and head/scalp atraumatic Resp normal respiratory effort Effort and Inspection: able to speak in complete sentences Cardio regular rate and regular rhythm Extremity General Extremity: edema bilateral lower extremity Details: moderate Skin General Skin Exam: venous stasis and dermatitis Wounds: wounds noted Wound Narrative: as in clinical panel Psych mental status grossly normal, thought process normal, cooperative and affect normal Debridement Note Debridement Note Wound debrided: left sellers Laterality: Left Type of Debridement: Selective debridement Anesthesia Used: 4% Lidocaine Solution Depth: Down to and including healthy tissue Percentage of wound debrided: 100 Instrument Used: - (gauze) Tissue Removed: yellow slough, devitalized tissue Severity: Limited To Skin Breakdown Amount of bleeding with debridement: None Bleeding Controlled with: Pressure Patient tolerated procedure: Patient tolerated procedure well Post-Debridement Measurements and Additional Note: Post-Debridement Measurements/Treatment - Nurse 1 - General Ulcer Assessment Start: 06/02/22 10:21 Freq: Status: Active Protocol: [email or web address] Activity Type Activity Date Activity User E-sign Co-sign Detail Recorded Client Recorded Date Recorded By Document 06/02/22 10:21 RB [id number] 06/02/22 10:27 RB Document 06/16/22 10:52 RB [id number] 06/16/22 11:01 RB 06/02/22 06/16/22 10:21 10:52 - Today's Visit Information Type of service Follow-up Visit Follow-up Visit (Physician/MANAGER RISK MANAGEMENT (Physician/MANAGER RISK MANAGEMENT ) ) Arrival Mode Ambulatory Ambulatory Transfer Assistance None None Patient Identification Verified (Name & Yes Yes ) Patient Requires Transmission-Based No Precautions Height and Weight Body Mass Index (BMI) 42.0 42.0 BMI Classification Obese Obese Vital Signs Temperature (97.8 F-99.1 F) 97 F L 96.5 F L Temperature Source Temporal Temporal Pulse Rate (60-100) 62 65 Pulse Location Monitor Monitor Respiratory Rate (12-18) 18 18 Respiratory rate source Observation Observation Blood Pressure (90/60-120/80) 181/67 H 151/81 H Blood Pressure Mean (mm Hg) 105 104 Source Monitor Monitor Position Semi-Fowlers Semi-Fowlers Blood Pressure Location Left Arm Left Arm History Since Last Visit- (Skip if this is Patient's initial visit) Have you changed medications since your No No last visit? Any new allergies or adverse reactions No No Had a fall/change in ADL's that may No No increase risk of falls Signs or symptoms of abuse and/or No No neglect since last visit Have you been in the hospital since your No No last visit? Has dressing in place as prescribed Yes Yes Has compression in place as prescribed Yes No Has offloadiing in place as prescribed No Yes Experienced any changes in pain level or No No management Pain Scale: 0-10 Numeric Is Patient Pain Free? Yes Yes WC - Nurse 1 - General Ulcer Measurement Start: 06/02/22 10:21 Freq: Status: Active Protocol: Activity Type Activity Date Activity User E-sign Co-sign Detail Recorded Client Recorded Date Recorded By Document 06/02/22 10:21 RB [id number] 06/02/22 10:27 RB Document 06/16/22 10:52 RB [id number] 06/16/22 11:01 RB 06/02/22 06/16/22 10:21 10:52 Wound Center Nurse 1 #1 left Sellers -Combined with other wound No No -Current Size (cm) - Length 0.3 0.2 -Current Size (cm) - Width 0.3 0.2 -Current Size (cm) - Depth 0.1 0.1 -Total Square Cm 0.09 0.04 -Photo Taken Yes Yes -Tunneling No No -Undermining/Tunneling No No -Circular Undermining No No -Exudate Amt Medium -Exudate Type Serosanguineous -Wound Margin Distinct, Outline Attached -Granulation Amt Medium (34-66%) Medium (34-66%) -Granulation Quality [place] -Slough/Fibrin Yes Yes -Necrosis Amt Medium (34-66%) Medium (34-66%) -Necrotic Tissue Type Adherent Slough -Structure Exposed N/A N/A -Texture (Nena-wound Skin Appearance) Assessed Assessed -Moisture (Nena-wound Skin Appearance) Assessed Assessed -Color (Nena-wound Skin Appearance) Assessed Assessed -Temperature (Nena-wound Skin No Abnormality No Abnormality Appearance) (Pt Warm) (Pt Warm) -Tenderness on Palpation (Nena-wound No No Skin Appearance) -Ulcer Cleansing Wound Cleanser Wound Cleanser -Foul Odor after Cleansing No No -Anesthetic Used 5% Lidocaine 5% Lidocaine Gel Gel Lower Limb Edema Present Yes Left Calf (cm) 35 35.5 Left Ankle (cm) 22 21 WC - Nurse 2 - General Ulcer CM Notes Start: 06/02/22 10:21 Freq: Status: Active Protocol: Activity Type Activity Date Activity User E-sign Co-sign Detail Recorded Client Recorded Date Recorded By Document 06/02/22 11:06 MW [id number] 06/02/22 11:09 MW Document 06/16/22 11:33 MW [id number] 06/16/22 11:37 MW 06/02/22 06/16/22 11:06 11:33 Wound Center Nurse 2 #1 left Sellers -Time 11:06 11:33 -Correct Patient Yes Yes -Correct Side, Site, Position Yes Yes -Correct Procedure Yes Yes -Procedure Performed Yes Yes -Type of Procedure Debridement Debridement -Clinical Debridement Subcutaneous Subcutaneous -Tissue Removed Subcutaneous Subcutaneous -Post Debridement (cm) - Length 0.4 0.1 -Post Debridement (cm) - Width 0.4 0.1 -Post Debridement (cm) - Depth 0.1 0.1 -Total Square (Post) (cm) 0.16 0.01 -Area of Debridement (cm) - Length 0.4 0.1 -Area of Debridement (cm) - Width 0.4 0.1 -Total Square (Area) (cm) 0.16 0.01 -Tunneling No No -Undermining/Tunneling No No -Circular Undermining No No -Wound/Ulcer Outcome Not Healed Not Healed -Ulcer Cleansing Rinsed/ Rinsed/ Irrigated with Irrigated with Saline Saline -Foul Odor after Cleansing No No -Bioengineered Tissue No No -Bleeding Controlled with Pressure Pressure -Treatment Response Procedure Procedure Tolerated Well Tolerated Well -Offloading No No -Debridement - Subq, 1st 20sq cm Yes Yes Pain Scale: 0-10 Numeric Is Patient Pain Free? Yes Yes - Nurse 3 - General Ulcer D/C NN Start: 06/02/22 10:21 Freq: Status: Active Protocol: Activity Type Activity Date Activity User E-sign Co-sign Detail Recorded Client Recorded Date Recorded By Document 06/02/22 11:19 MW [id number] 06/02/22 11:20 MW Document 06/16/22 11:43 BMF [id number] 06/16/22 11:44 BMF 06/02/22 06/16/22 11:19 11:43 Wound Care Center Nurse 3 #1 left Sellers -Ulcer Cleansing Rinsed/ Rinsed/ Irrigated with Irrigated with Saline Saline -Foul Odor after Cleansing No No -Negative Pressure Wound Therapy N/A -Primary Dressing Applied C Hydrogel ($), C Hydrogel ($), Promogran, NonAdherent Mepilex Border Contact Layer, Mepilex Border -Other Dressing DRSG PER [employer] -Mepilex Border 1 1 -Promogran 1 Right -Lotion applied to leg before No compression wrap -Tubular Bandage Single Layer -Size of Tubigrip Used Size D -Size D ($) 1 Left -Lotion applied to leg before No compression wrap -Tubular Bandage Single Layer -Size of Tubigrip Used Size D -Size D ($) 1 -Other PTS COMPRESSION STOCKING REAPPLIED Treatment Response Procedure Tolerated Well Pain Scale: 0-10 Numeric Is Patient Pain Free? 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: CODE(S): I83.019 - Varicose veins of right lower extremity with ulcer of unspecified site; I83.029 - Varicose veins of left lower extremity with ulcer of unspecified site; L97.919 - Non-pressure chronic ulcer of unspecified part of right lower leg with unspecified severity; L97.929 - Non-pressure chronic ulcer of unspecified part of left lower leg with unspecified severity (3) Lymphedema associated with obesity: CODE(S): I89.0 - Lymphedema, not elsewhere classified; E66.9 - Obesity, unspecified (4) Venous insufficiency of both lower extremities: CODE(S): I87.2 - Venous insufficiency (chronic) (peripheral) (5) Skin ulcer of left great toe with fat layer exposed: CODE(S): L97.522 - Non-pressure chronic ulcer of other part of left foot with fat layer exposed (6) Ulcer of left great toe due to diabetes mellitus: CODE(S): E11.621 - Type 2 diabetes mellitus with foot ulcer; L97.529 - Non-pressure chronic ulcer of other part of left foot with unspecified severity (7) Ulcer of right second toe with fat layer exposed: CODE(S): L97.512 - Non-pressure chronic ulcer of other part of right foot with fat layer exposed (8) 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 At home wound-care instructions: Will have her continue to use tubigrip in single layer for compression of right leg. Left sellers will be dressed with collagen hydrogel and adaptic, covered with silicone foam bordered dressing every other day and will have her do the tubigrip for compression again. Keep dressings clean and dry. Off-loading: The patient was instructed to avoid pressure and friction on the affected areas. Reposition every 2 hours at minimum. Avoid prolonged standing and/or dangling of legs. When seated, feet should be elevated at or above chest level. Frequent ambulation is encouraged. Diet: Patient encouraged to increase protein intake while taking caution to avoid high carbohydrate and/or sugar intake. Labs/cultures/imaging: none additional Follow-up: Return in 1 week for wound care follow up. Return sooner or report to the emergency room should symptoms worsen, or new symptoms arise. Note: [facility] [employer] speech recognition warehouse shipper software was used to create portions of this document. Sound-alike and misspelled words, as well as other warehouse shipper errors may be contained in the documentation.
== END 2022-06-16 23:59 | disposition home or self-care (01) ==
LOC: WC 11:00
PROVIDERS: PCP Family Medicine; Visit Provider Family Medicine
DX: I83.028 Varicose veins of left lower extremity with ulcer other part of lower leg (principal); E11.622 Type 2 diabetes mellitus with other skin ulcer; L97.822 Non-pressure chronic ulcer of other part of left lower leg with fat layer exposed; L97.821 Non-pressure chronic ulcer of other part of left lower leg limited to breakdown of skin; E66.01 Morbid (severe) obesity due to excess calories; Z68.41 Body mass index [BMI] 40.0-44.9, adult; R60.0 Localized edema; I10 Essential (primary) hypertension; M79.7 Fibromyalgia
CPT/HCPCS: 11042

== ENCOUNTER → 2022-07-17 | Outpatient (CLI) | payer MEDICARE, OTHER, SELFPAY ==
[2022-07-17 17:56] LABS: Absolute Lymphocyte Count 1.16 X10^3/uL (0.83-4.51); Absolute Neutrophil Count 6.1 X10^3/uL (2.0-7.7); Basophil# 0.03 X10^3/uL; Basophil% 0.4 % (0-1); Hematocrit 35.5 % (37-47); Hemoglobin 10.9 g/dL (12.0-15.0); Lymphocyte # 1.16 X10^3/ul (0.83-4.51); Lymphocyte % 15.6 % (19-41); Mean Corp Hgb Conc 30.7 g/dL (32-36); Mean Corpuscular Hgb 29.1 pg (27.0-32.0); Mean Corpuscular Volume 94.9 fL (81-99); Mean Platelet Vol. 11.2 fl (6.2-12.0); Monocyte# 0.14 X10^3/uL; Monocyte% 1.9 % (0-10); NRBC Flagged by Analyzer 0 % (0-5); Neutrophil # 6.09 X10^3/uL (2.7-7.7); Neutrophil % 81.7 % (47-70); Platelet Count 195 K/mm3 (150-450); RBC Distribution Width CV 17.2 % (11.6-14.6); RBC Distribution Width SD 59.7 fl (35.1-43.9); Red Blood Count 3.74 M/mm3 (4.2-5.4); White Blood Count 7.5 K/mm3 (4.4-11.0)
[2022-07-17 18:21] LABS: ALB/GLOB Ratio 0.9 RATIO (0.9-2.4); AST(SGOT) 13 U/L (15-37); Alanine Aminotransfer ALT/SGPT 20 U/L (13-56); Albumin, Serum 3.5 g/dL (3.2-5.0); Alkaline Phosphatase 71 U/L (45-117); Anion Gap 7 (5-15); BUN 25 mg/dL (7-18); Calcium,Total 8.8 mg/dL (8.5-10.1); Chloride 106 mmol/L (98-107); Creatinine, Serum 0.89 mg/dL (0.55-1.02); EST Glomerular Filtration Rate 65 mL/min (>60); Est Glom Filt Rate - Afr Amer 78 mL/min (>60); Globulin 3.9 g/dL (2.2-4.2); Glucose 206 mg/dL (74-106); Potassium 4.5 mmol/L (3.5-5.1); Protein, Total 7.4 g/dL (6.4-8.2); Sodium Level 138 mmol/L (136-145)
== END | disposition home or self-care (01) ==
LOC: MTLAB 14:42
PROVIDERS: PCP Family Medicine; Referring Provider Internal Medicine Rheumatology; Visit Provider Internal Medicine Rheumatology
DX: M06.4 Inflammatory polyarthropathy (principal); Z79.899 Other long term (current) drug therapy
CPT/HCPCS: 36415; 80053; 85025

== ENCOUNTER → 2022-11-15 | Outpatient (CLI) | payer MEDICARE, OTHER, SELFPAY ==
[2022-11-15 17:44] LABS: Absolute Lymphocyte Count 3.13 X10^3/uL (0.83-4.51); Absolute Neutrophil Count 7.5 X10^3/uL (2.0-7.7); Basophil# 0.07 X10^3/uL; Basophil% 0.6 % (0-1); Eosinophil# 0.19 X10^3/uL; Eosinophils% 1.7 % (0-5); Hematocrit 39.9 % (37-47); Hemoglobin 12.2 g/dL (12.0-15.0); Lymphocyte # 3.13 X10^3/ul (0.83-4.51); Lymphocyte % 27.7 % (19-41); Mean Corp Hgb Conc 30.6 g/dL (32-36); Mean Corpuscular Hgb 29.3 pg (27.0-32.0); Mean Corpuscular Volume 95.9 fL (81-99); Mean Platelet Vol. 11.8 fl (6.2-12.0); Monocyte# 0.43 X10^3/uL; Monocyte% 3.8 % (0-10); NRBC Flagged by Analyzer 0 % (0-5); Neutrophil # 7.47 X10^3/uL (2.7-7.7); Neutrophil % 66.1 % (47-70); Platelet Count 227 K/mm3 (150-450); RBC Distribution Width CV 14.8 % (11.6-14.6); RBC Distribution Width SD 52.3 fl (35.1-43.9); Red Blood Count 4.16 M/mm3 (4.2-5.4); White Blood Count 11.3 K/mm3 (4.4-11.0)
[2022-11-15 18:36] LABS: ALB/GLOB Ratio 0.9 RATIO (0.9-2.4); AST(SGOT) 17 U/L (15-37); Alanine Aminotransfer ALT/SGPT 23 U/L (13-56); Albumin, Serum 3.5 g/dL (3.2-5.0); Alkaline Phosphatase 65 U/L (45-117); Anion Gap 8 (5-15); BUN 27 mg/dL (7-18); BUN/Creat Ratio 21.1 RATIO (10-20); Calcium,Total 9.1 mg/dL (8.5-10.1); Chloride 105 mmol/L (98-107); Creatinine, Serum 1.28 mg/dL (0.55-1.02); EST Glomerular Filtration Rate 43 mL/min (>60); Est Glom Filt Rate - Afr Amer 52 mL/min (>60); Globulin 3.9 g/dL (2.2-4.2); Glucose 231 mg/dL (74-106); Potassium 4.2 mmol/L (3.5-5.1); Protein, Total 7.4 g/dL (6.4-8.2); Sodium Level 139 mmol/L (136-145)
== END | disposition home or self-care (01) ==
LOC: MTLAB 14:05
PROVIDERS: PCP Family Medicine; Referring Provider Internal Medicine Rheumatology; Visit Provider Internal Medicine Rheumatology
DX: M06.4 Inflammatory polyarthropathy (principal); M79.7 Fibromyalgia; Z79.899 Other long term (current) drug therapy
CPT/HCPCS: 36415; 80053; 85025

== ENCOUNTER → 2022-12-07 | Outpatient (CLI) | payer MEDICARE, OTHER, SELFPAY ==
--- NOTE | 2022-12-07 06:36 | MRI_ITS ---
STUDY: MRI LUMBAR SPINE WITHOUT CONTRAST REASON FOR EXAM: Female, 82 years old. ABNORMAL GAIT TECHNIQUE: Standardized fat and water weighted pulse sequences were obtained in the sagittal and axial planes. COMPARISON: CT abdomen and pelvis with and without contrast 10/30/2014. FINDINGS: T9-T10, T10-T11 and T11-T12: (Sagittal only). Normal endplates. Normal disc height and morphology. Normal central canal and bilateral intervertebral neural foramina. T12-L1: Normal endplates. Normal disc height. Mild ventral extradural defect due to posterior bulging annulus. Normal facet joints. Normal central canal and bilateral lateral recesses. Normal bilateral intervertebral neural foramina. Normal lumbar lordosis. There is no substantial scoliosis. Normal conus medullaris that terminates at the lower T12 vertebral body level. L1-2: Normal endplates. Normal disc height, hydration and morphology. Normal bilateral facet joints. Normal central canal and bilateral lateral recesses. Normal bilateral intervertebral neural foramina. L2-3: Normal endplates. Mild disc space height narrowing. Mild ventral extradural defect due to posterior bulging annulus. No significant facet arthropathy. Normal central canal and bilateral lateral recesses. Normal bilateral intervertebral neural foramina. L3-4: Normal endplates. Mild disc space height narrowing. No ventral extradural defect. Mild bilateral degenerative facet arthropathy. Normal central canal and bilateral lateral recesses. Normal bilateral intervertebral neural foramina. L4-5: Normal endplates. Normal disc height. Grade 1 degenerative anterolisthesis of L4 on L5 is a new finding. Pronounced bilateral L4-L5 degenerative facet arthropathy. Severe central canal stenosis with an AP canal diameter of 4 mm. Normal bilateral lateral recesses. Posterior ligamenta flava hypertrophy. Normal bilateral intervertebral neural foramina. L5-S1: Normal endplates. Normal disc height and morphology. Moderate bilateral degenerative facet arthropathy. Normal central canal and bilateral lateral recesses. Normal bilateral intervertebral neural foramina. Normal visualized sacral ala. Normal visualized paraspinous soft tissue structures. MRI/Spine Lumbar (Routine) IMPRESSION: 1. Severe central canal stenosis at L4-L5 disc space level with an AP canal diameter of 4 mm, pronounced bilateral degenerative facet arthropathy and grade 1 degenerative anterolisthesis of L4 on L5. These are new findings when compared to 10/30/2014. 2. Moderate bilateral L5-S1 degenerative facet arthropathy. 3. No MRI evidence of lumbar extruded disc fragment. Electronically Signed: Eligio Weber MD at 16:01 EDT ,
--- NOTE | 2022-12-07 06:36 | MRI_ITS ---
EXAM: MR HEAD WITHOUT AND WITH INTRAVENOUS CONTRAST CLINICAL INDICATION: ABNORMAL GAIT TECHNIQUE: Multiplanar and multisequence MR images of the brain were obtained without and with intravenous contrast. CONTRAST: 21 mL of IV Clariscan. COMPARISON: No relevant prior studies available. FINDINGS: ARTIFACTS: Motion degradation artifacts. BRAIN AND EXTRA-AXIAL SPACES: Few small T2 FLAIR hyperintensity foci in the white matter of both cerebral hemispheres are chronic white matter ischemic changes. Following IV contrast administration, there are no abnormally enhancing lesions intra-axially and extra-axially. No diffusion restriction to suspect acute or subacute ischemic infarct. No remote ischemic infarct. No intra- or extra-axial hemorrhage. No intracranial mass or mass effect. Posterior fossa structures are unremarkable. Normal ventricles and cisterns. No communicating or noncommunicating hydrocephalus. SELLA: Unremarkable. Normal sella turcica, pituitary gland, infundibular stalk, optic chiasm and hypothalamus. AUDITORY SYSTEM: Unremarkable. The internal auditory canals are patent. BONES/JOINTS: Unremarkable. No discrete lytic or blastic abnormalities. SINUSES: Unremarkable as visualized. Clear. MASTOID AIR CELLS: Unremarkable as visualized. Clear. ORBITS: Unremarkable as visualized. Both globes, extraocular muscles, optic nerves and retrobulbar fat appear unremarkable. VASCULATURE: Unremarkable as visualized. Normal flow voids in the major intracranial circulation. MRI/Brain W/WO Contrast IMPRESSION: 1. Limited study due to motion. 2. No MRI evidence of acute or subacute ischemic infarct or remote ischemic infarct. 3. No abnormal enhancing lesions intra-axially and extra-axially. 4. Few small chronic white matter ischemic changes in both cerebral hemispheres. Electronically Signed: Eligio Weber MD at 9:54 EDT ,
--- NOTE | 2022-12-07 06:36 | MRI_ITS ---
STUDY: MRI CERVICAL SPINE WITHOUT CONTRAST REASON FOR EXAM: Female, 82 years old. ABNORMAL GAIT TECHNIQUE: Standardized fat and water weighted pulse sequences were obtained in the sagittal and axial planes. COMPARISON: None FINDINGS: Normal foramen magnum and brainstem-cervical cord junction. Normal craniovertebral junction. Normal anterior atlantoaxial articulation. Normal odontoid process. Normal cervical lordosis. Normal vertebral bodies and posterior osseous elements. C2-3: Normal endplates. Normal disc height, signal and morphology. Normal central canal and intervertebral neural foramina. C3-4: Normal endplates. Normal disc height, signal and morphology. Normal central canal and intervertebral neural foramina. C4-5: Normal endplates. Mild disc space height narrowing. Normal central canal and intervertebral neural foramina. C5-6: Normal endplates. Mild disc space height narrowing. Mild ventral extradural defect due to posterior marginal spurs and small posterior bulging annulus. Normal central canal and intervertebral neural foramina. C6-7: Normal endplates. Mild disc space height narrowing. Minimal ventral extradural defect due to bone spur. Normal central canal and intervertebral neural foramina. C7-T1: Normal endplates. Normal disc height. Mild degenerative anterolisthesis of C7 on T1. Normal central canal and intervertebral neural foramina. T1-T2: (Sagittal only). Normal T1 inferior endplate. Mild anterior wedging of T2 superior endplate is presumably from remote injury. This accounts for the increased disc space height. Normal central canal and bilateral intervertebral neural foramina. T2-T3 and T3-T4: (Sagittal only). Normal endplates. Normal disc height and morphology. Normal central canal and intervertebral neural foramina. Normal cervical cord. Normal upper thoracic spinal cord. Normal included portions of brainstem and cerebellum. Normal visualized soft tissue structures. MRI/Spine Cervical (Routine) IMPRESSION: 1. Limited study due to motion. 2. No MRI evidence of cervical extruded disc fragment or spinal stenosis. 3. Mild degenerative anterolisthesis of C7 on T1. 4. Mild ventral extradural defect at C5-C6 disc space levels due to posterior marginal spurs more than posterior bulging annulus. 5. Mild ventral extradural defect at C6-C7 disc space level due to posterior marginal spurs. 6. No suspicious abnormality of the cervical spinal cord considering motion artifacts. Electronically Signed: Eligio Weber MD at 16:05 EDT ,
== END | disposition home or self-care (01) ==
LOC: MRI 06:22
PROVIDERS: PCP Family Medicine; Referring Provider Psychiatry & Neurology Neurology; Visit Provider Psychiatry & Neurology Neurology
DX: R26.9 Unspecified abnormalities of gait and mobility (principal)
CPT/HCPCS: 70553; 72141; 72148; A9575

== ENCOUNTER → 2022-12-19 | Outpatient (CLI) | payer MEDICARE, OTHER, SELFPAY ==
--- NOTE | 2022-12-19 12:40 | BI_ITS ---
MAMMOGRAPHY - BILATERAL SCREENING REASON FOR EXAM: Female, 82 years old. Routine annual screening examination. PERTINENT HISTORY: Non-contributory. TECHNIQUE: Digital bilateral breast justice (3D mammographic acquisition) in the CC and MLO projections. 2-D mediolateral oblique (MLO) and craniocaudad (CC) views of both breasts were obtained. CAD: Full Field Digital Mammography with Computer Added Detection was performed. COMPARISON: Comparison is made with prior study dated July 14, 2016 and July 14, 2015. FINDINGS: Breast Composition: The breasts are heterogeneously dense, which may obscure small masses. There are no dominant masses or suspicious calcifications. Scattered calcifications in both breasts more prominent on the left side. Degenerative progressed at the prior study. No focal cluster is seen. No other significant abnormalities are identified. There has been no significant change since the prior study. BI/SCRN MAMM (CAD)W/JUSTICE BILAT IMPRESSION: Stable bilateral screening mammogram. Yearly follow-up mammogram recommended. (A) ASSESSMENT CATEGORY: BIRADS Category 2: Benign. A letter regarding these results will be sent to the patient by the facility within 30 days. Approximately 10% of breast cancers are not detected by mammography. A normal mammogram should not delay biopsy of a clinically suspicious abnormality. [id number] Electronically Signed: Ryder Champagne MD at 14:01 EDT ,
--- NOTE | 2022-12-19 13:11 | BD_ITS ---
STUDY: DUAL ENERGY X-RAY ABSORPTIOMETRY / DXA REASON FOR EXAM: Female, 82 years old. M85.89 TECHNIQUE: Bone Mineral Density (BMD) measurements of lumbar spine and bilateral hips were obtained. COMPARISON: Comparison is made with prior study dated August 22, 2016. FINDINGS: Lumbar Spine (L1-L4): g/cm2 (0.983) / T-score (-0.3) / Z-score (2.3) Findings are suggestive of normal bone density with a low fracture risk. Left Femur Total: g/cm2 (0.780) / T-score (-1.3) / Z-score (0.8) Left Femoral Neck: g/cm2 (0.677) / T-score (-1.6) / Z-score (0.8) Right Femur Total: g/cm2 (0.722) / T-score (-1.8) / Z-score (0.3) Right Femoral Neck: g/cm2 (0.666) / T-score (-1.6) / Z-score (0.7) The T-Scores on the most recent prior examination were: Lumbar Spine (L1-L4): There has been worsening of bone density since the previous examination. Left Femur Total: which represents an improvement of 0.1%. Right Femur Total: which represents a worsening of 0.4%. BD/Dexa Bone Density Study IMPRESSION: The patient is considered osteopenic as outlined below according to World Hol[employer] Organization (WHO) criteria with a moderate fracture risk. There has been worsening of bone density since the previous examination. Reference Information: The T-score is the number of standard deviations above or below the standard which is normal for young adults at their peak bone mineral density. The World Health Organization (WHO) interprets the T-scores as follows: Above -1 Normal bone density Between -1 and -2.5 Osteopenia Equal to / or below -2.5 Osteoporosis As a practical clinical guideline, osteopenia may be graded as follows: Mild -1 through -1.5 Moderate -1.6 through -2.0 Severe -2.1 through -2.4 The Z-score is the number of standard deviations above or below age-matched controls. A Z-score of less than -1.5 would be considered abnormal. References: 1. NIH Osteoporosis and Related Bone Diseases www osteo.org 2. International Society for Clinical Densitometry www iscd.org 3. National Osteoporosis Foundation www nof.org Electronically Signed: Ryder Champagne MD at 15:07 EDT ,
== END | disposition home or self-care (01) ==
LOC: OPBD 12:38
PROVIDERS: PCP Family Medicine; Referring Provider Nurse Practitioner Family; Visit Provider Nurse Practitioner Family
DX: M81.0 Age-related osteoporosis without current pathological fracture (principal); Z12.31 Encounter for screening mammogram for malignant neoplasm of breast
CPT/HCPCS: 77063; 77067; 77080

== ENCOUNTER → 2023-01-08 | Outpatient (CLI) | payer MEDICARE, OTHER, SELFPAY ==
[2023-01-08 11:10] LABS: ALB/GLOB Ratio 0.8 RATIO (0.9-2.4); AST(SGOT) 11 U/L (15-37); Alanine Aminotransfer ALT/SGPT 21 U/L (13-56); Albumin, Serum 3.4 g/dL (3.2-5.0); Alkaline Phosphatase 65 U/L (45-117); Anion Gap 6 (5-15); BUN 21 mg/dL (7-18); BUN/Creat Ratio 23.1 RATIO (10-20); Calcium,Total 8.6 mg/dL (8.5-10.1); Chloride 109 mmol/L (98-107); Creatinine, Serum 0.91 mg/dL (0.55-1.02); EST Glomerular Filtration Rate 63 mL/min (>60); Est Glom Filt Rate - Afr Amer 77 mL/min (>60); Glucose 219 mg/dL (74-106); Potassium 3.2 mmol/L (3.5-5.1); Protein, Total 7.4 g/dL (6.4-8.2); Sodium Level 140 mmol/L (136-145)
== END | disposition home or self-care (01) ==
LOC: MTLAB 08:59
PROVIDERS: PCP Family Medicine; Referring Provider Internal Medicine Rheumatology; Visit Provider Internal Medicine Rheumatology
DX: M06.4 Inflammatory polyarthropathy (principal); M79.7 Fibromyalgia; Z79.899 Other long term (current) drug therapy
CPT/HCPCS: 36415; 80053

== ENCOUNTER → 2023-08-28 | Outpatient (CLI) | payer MEDICARE, OTHER, SELFPAY | END | disposition home or self-care (01) | PROVIDERS: PCP Family Medicine; Visit Provider Urology | DX: R30.0 Dysuria (principal) | CPT/HCPCS: 87086; 87088 ==

== ENCOUNTER → 2023-09-13 | Outpatient (CLI) | payer MEDICARE, OTHER, SELFPAY ==
[2023-09-13 15:29] LABS: Anion Gap 11 (5-15); BUN 24 mg/dL (7-18); BUN/Creat Ratio 20.9 RATIO (10-20); Calcium,Total 8.6 mg/dL (8.5-10.1); Chloride 103 mmol/L (98-107); Creatinine, Serum 1.15 mg/dL (0.55-1.02); EST Glomerular Filtration Rate 48 mL/min (>60); Est Glom Filt Rate - Afr Amer 58 mL/min (>60); Glucose 205 mg/dL (74-106); Potassium 3.6 mmol/L (3.5-5.1); Sodium Level 137 mmol/L (136-145)
== END | disposition home or self-care (01) ==
LOC: BFHLAB 13:10
PROVIDERS: PCP Family Medicine; Referring Provider Family Medicine; Visit Provider Family Medicine
DX: I10 Essential (primary) hypertension (principal)
CPT/HCPCS: 36415; 80048

== ENCOUNTER → 2023-10-04 | Outpatient (CLI) | payer MEDICARE, OTHER, SELFPAY ==
[2023-10-04 15:09] LABS: Absolute Lymphocyte Count 3.78 X10^3/uL (0.83-4.51); Absolute Neutrophil Count 8.5 X10^3/uL (2.0-7.7); Basophil# 0.08 X10^3/uL; Basophil% 0.6 % (0-1); Eosinophil# 0.26 X10^3/uL; Eosinophils% 1.9 % (0-5); Hematocrit 38.1 % (37-47); Lymphocyte # 3.78 X10^3/ul (0.83-4.51); Lymphocyte % 27.2 % (19-41); Mean Corp Hgb Conc 31.5 g/dL (32-36); Mean Corpuscular Hgb 27.2 pg (27.0-32.0); Mean Corpuscular Volume 86.4 fL (81-99); Mean Platelet Vol. 10.7 fl (6.2-12.0); Monocyte# 1.23 X10^3/uL; Monocyte% 8.9 % (0-10); NRBC Flagged by Analyzer 0 % (0-5); Neutrophil # 8.45 X10^3/uL (2.7-7.7); Neutrophil % 60.8 % (47-70); Platelet Count 280 K/mm3 (150-450); RBC Distribution Width SD 53.6 fl (35.1-43.9); Red Blood Count 4.41 M/mm3 (4.2-5.4); White Blood Count 13.9 K/mm3 (4.4-11.0)
[2023-10-04 15:20] LABS: ALB/GLOB Ratio 0.9 RATIO (0.9-2.4); AST(SGOT) 17 U/L (15-37); Alanine Aminotransfer ALT/SGPT 21 U/L (13-56); Albumin, Serum 3.6 g/dL (3.2-5.0); Alkaline Phosphatase 70 U/L (45-117); Anion Gap 11 (5-15); BUN 46 mg/dL (7-18); BUN/Creat Ratio 28.6 RATIO (10-20); Calcium,Total 8.4 mg/dL (8.5-10.1); Chloride 107 mmol/L (98-107); Creatinine, Serum 1.61 mg/dL (0.55-1.02); EST Glomerular Filtration Rate 33 mL/min (>60); Est Glom Filt Rate - Afr Amer 40 mL/min (>60); Globulin 4.2 g/dL (2.2-4.2); Glucose 147 mg/dL (74-106); Potassium 3.8 mmol/L (3.5-5.1); Protein, Total 7.8 g/dL (6.4-8.2); Sodium Level 138 mmol/L (136-145)
== END | disposition home or self-care (01) ==
PROVIDERS: PCP Family Medicine; Referring Provider Internal Medicine Rheumatology; Visit Provider Internal Medicine Rheumatology
DX: M06.4 Inflammatory polyarthropathy (principal); E11.9 Type 2 diabetes mellitus without complications; Z79.899 Other long term (current) drug therapy; M79.7 Fibromyalgia; M17.0 Bilateral primary osteoarthritis of knee; M81.0 Age-related osteoporosis without current pathological fracture; I10 Essential (primary) hypertension; F32.89 Other specified depressive episodes; M18.0 Bilateral primary osteoarthritis of first carpometacarpal joints
CPT/HCPCS: 36415; 80053; 85025

== ENCOUNTER → 2023-11-05 | Outpatient (CLI) | payer MEDICARE, OTHER, SELFPAY ==
[2023-11-05 12:35] LABS: Absolute Lymphocyte Count 2.53 X10^3/uL (0.83-4.51); Absolute Neutrophil Count 4.9 X10^3/uL (2.0-7.7); Basophil# 0.05 X10^3/uL; Basophil% 0.6 % (0-1); Eosinophil# 0.25 X10^3/uL; Hemoglobin 11.1 g/dL (12.0-15.0); Lymphocyte # 2.53 X10^3/ul (0.83-4.51); Lymphocyte % 30.3 % (19-41); Mean Corp Hgb Conc 31.7 g/dL (32-36); Mean Corpuscular Hgb 27.5 pg (27.0-32.0); Mean Corpuscular Volume 86.8 fL (81-99); Mean Platelet Vol. 10.8 fl (6.2-12.0); Monocyte# 0.63 X10^3/uL; Monocyte% 7.6 % (0-10); NRBC Flagged by Analyzer 0 % (0-5); Neutrophil # 4.85 X10^3/uL (2.7-7.7); Neutrophil % 58.1 % (47-70); Platelet Count 213 K/mm3 (150-450); RBC Distribution Width CV 17.3 % (11.6-14.6); RBC Distribution Width SD 55.5 fl (35.1-43.9); Red Blood Count 4.03 M/mm3 (4.2-5.4); White Blood Count 8.3 K/mm3 (4.4-11.0)
[2023-11-05 13:19] LABS: ALB/GLOB Ratio 0.9 RATIO (0.9-2.4); AST(SGOT) 15 U/L (15-37); Alanine Aminotransfer ALT/SGPT 17 U/L (13-56); Albumin, Serum 3.4 g/dL (3.2-5.0); Alkaline Phosphatase 74 U/L (45-117); Anion Gap 8 (5-15); BUN 19 mg/dL (7-18); BUN/Creat Ratio 23.6 RATIO (10-20); Calcium,Total 8.7 mg/dL (8.5-10.1); Chloride 109 mmol/L (98-107); Creatinine, Serum 0.81 mg/dL (0.55-1.02); EST Glomerular Filtration Rate 73 mL/min (>60); Est Glom Filt Rate - Afr Amer 88 mL/min (>60); Globulin 3.8 g/dL (2.2-4.2); Glucose 151 mg/dL (74-106); Potassium 3.5 mmol/L (3.5-5.1); Protein, Total 7.2 g/dL (6.4-8.2); Sodium Level 140 mmol/L (136-145)
== END | disposition home or self-care (01) ==
LOC: MTLAB 10:01
PROVIDERS: PCP Family Medicine; Referring Provider Family Medicine; Visit Provider Family Medicine
DX: I10 Essential (primary) hypertension (principal); M06.4 Inflammatory polyarthropathy; M79.7 Fibromyalgia; Z79.899 Other long term (current) drug therapy
CPT/HCPCS: 36415; 80053; 85025

== ENCOUNTER → 2024-01-07 | Outpatient (CLI) | payer MEDICARE, OTHER, SELFPAY ==
[2024-01-07 17:51] LABS: Absolute Lymphocyte Count 3.17 X10^3/uL (0.83-4.51); Absolute Neutrophil Count 9.8 X10^3/uL (2.0-7.7); Basophil# 0.09 X10^3/uL; Basophil% 0.6 % (0-1); Eosinophil# 0.35 X10^3/uL; Eosinophils% 2.4 % (0-5); Hematocrit 37.1 % (37-47); Lymphocyte # 3.17 X10^3/ul (0.83-4.51); Mean Corp Hgb Conc 32.3 g/dL (32-36); Mean Corpuscular Hgb 29.2 pg (27.0-32.0); Mean Corpuscular Volume 90.3 fL (81-99); Mean Platelet Vol. 10.3 fl (6.2-12.0); Monocyte# 0.96 X10^3/uL; Monocyte% 6.7 % (0-10); NRBC Flagged by Analyzer 0 % (0-5); Neutrophil # 9.79 X10^3/uL (2.7-7.7); Platelet Count 254 K/mm3 (150-450); RBC Distribution Width CV 15.1 % (11.6-14.6); RBC Distribution Width SD 50.2 fl (35.1-43.9); Red Blood Count 4.11 M/mm3 (4.2-5.4); White Blood Count 14.4 K/mm3 (4.4-11.0)
[2024-01-07 18:10] LABS: ALB/GLOB Ratio 0.8 RATIO (0.9-2.4); AST(SGOT) 17 U/L (15-37); Alanine Aminotransfer ALT/SGPT 19 U/L (13-56); Albumin, Serum 3.4 g/dL (3.2-5.0); Alkaline Phosphatase 104 U/L (45-117); Anion Gap 8 (5-15); BUN 18 mg/dL (7-18); BUN/Creat Ratio 16.4 RATIO (10-20); Calcium,Total 9.2 mg/dL (8.5-10.1); Chloride 107 mmol/L (98-107); EST Glomerular Filtration Rate 51 mL/min (>60); Est Glom Filt Rate - Afr Amer 61 mL/min (>60); Globulin 4.2 g/dL (2.2-4.2); Glucose 247 mg/dL (74-106); Potassium 4.1 mmol/L (3.5-5.1); Protein, Total 7.6 g/dL (6.4-8.2); Sodium Level 137 mmol/L (136-145)
== END | disposition home or self-care (01) ==
LOC: MTLAB 13:58
PROVIDERS: PCP Family Medicine; Referring Provider Internal Medicine Rheumatology; Visit Provider Internal Medicine Rheumatology
DX: M06.4 Inflammatory polyarthropathy (principal); M79.7 Fibromyalgia; Z79.899 Other long term (current) drug therapy
CPT/HCPCS: 36415; 80053; 85025

== ENCOUNTER → 2024-02-18 | Outpatient (CLI) | payer MEDICARE, OTHER, SELFPAY ==
[2024-02-18 12:31] LABS: ALB/GLOB Ratio 0.9 RATIO (0.9-2.4); AST(SGOT) 19 U/L (15-37); Absolute Lymphocyte Count 2.82 X10^3/uL (0.83-4.51); Absolute Neutrophil Count 6.9 X10^3/uL (2.0-7.7); Alanine Aminotransfer ALT/SGPT 22 U/L (13-56); Albumin, Serum 3.5 g/dL (3.2-5.0); Alkaline Phosphatase 63 U/L (45-117); Anion Gap 7 (5-15); BUN 26 mg/dL (7-18); BUN/Creat Ratio 30.2 RATIO (10-20); Basophil# 0.06 X10^3/uL; Basophil% 0.6 % (0-1); Calcium,Total 9.2 mg/dL (8.5-10.1); Chloride 105 mmol/L (98-107); Creatinine, Serum 0.86 mg/dL (0.55-1.02); EST Glomerular Filtration Rate 67 mL/min (>60); Eosinophil# 0.26 X10^3/uL; Eosinophils% 2.4 % (0-5); Est Glom Filt Rate - Afr Amer 81 mL/min (>60); Globulin 3.8 g/dL (2.2-4.2); Glucose 166 mg/dL (74-106); Hematocrit 37.2 % (37-47); Hemoglobin 11.7 g/dL (12.0-15.0); Lymphocyte # 2.82 X10^3/ul (0.83-4.51); Lymphocyte % 26.2 % (19-41); Mean Corp Hgb Conc 31.5 g/dL (32-36); Mean Corpuscular Volume 92.1 fL (81-99); Mean Platelet Vol. 10.8 fl (6.2-12.0); Monocyte# 0.71 X10^3/uL; Monocyte% 6.6 % (0-10); NRBC Flagged by Analyzer 0 % (0-5); Neutrophil # 6.88 X10^3/uL (2.7-7.7); Neutrophil % 63.7 % (47-70); Platelet Count 235 K/mm3 (150-450); Potassium 4.1 mmol/L (3.5-5.1); Protein, Total 7.3 g/dL (6.4-8.2); RBC Distribution Width CV 15.2 % (11.6-14.6); RBC Distribution Width SD 50.4 fl (35.1-43.9); Red Blood Count 4.04 M/mm3 (4.2-5.4); Sodium Level 139 mmol/L (136-145); White Blood Count 10.8 K/mm3 (4.4-11.0)
== END | disposition home or self-care (01) ==
PROVIDERS: PCP Family Medicine; Referring Provider Internal Medicine Rheumatology; Visit Provider Internal Medicine Rheumatology
DX: M06.4 Inflammatory polyarthropathy (principal); M79.7 Fibromyalgia; M17.0 Bilateral primary osteoarthritis of knee; M18.0 Bilateral primary osteoarthritis of first carpometacarpal joints; Z79.899 Other long term (current) drug therapy
CPT/HCPCS: 36415; 80053; 85025

== ENCOUNTER → 2024-05-20 | Outpatient (CLI) | payer MEDICARE, OTHER, SELFPAY ==
[2024-05-20 15:17] LABS: Absolute Lymphocyte Count 2.69 X10^3/uL (0.83-4.51); Absolute Neutrophil Count 10.1 X10^3/uL (2.0-7.7); Basophil# 0.07 X10^3/uL; Basophil% 0.5 % (0-1); Eosinophil# 0.26 X10^3/uL; Eosinophils% 1.8 % (0-5); Hematocrit 35.7 % (37-47); Hemoglobin 11.5 g/dL (12.0-15.0); Lymphocyte # 2.69 X10^3/ul (0.83-4.51); Lymphocyte % 19.1 % (19-41); Mean Corp Hgb Conc 32.2 g/dL (32-36); Mean Corpuscular Hgb 29.9 pg (27.0-32.0); Mean Platelet Vol. 10.8 fl (6.2-12.0); Monocyte% 6.4 % (0-10); NRBC Flagged by Analyzer 0 % (0-5); Neutrophil # 10.11 X10^3/uL (2.7-7.7); Neutrophil % 71.6 % (47-70); Platelet Count 227 K/mm3 (150-450); RBC Distribution Width CV 14.4 % (11.6-14.6); RBC Distribution Width SD 48.2 fl (35.1-43.9); Red Blood Count 3.84 M/mm3 (4.2-5.4); White Blood Count 14.1 K/mm3 (4.4-11.0)
[2024-05-20 19:28] LABS: ALB/GLOB Ratio 1.2 RATIO (0.9-2.4); AST(SGOT) 20 U/L (<=31); Alanine Aminotransfer ALT/SGPT 19 U/L (<=34); Albumin, Serum 4.2 g/dL (3.4-4.8); Alkaline Phosphatase 75 U/L (35-104); Anion Gap 14 (5-15); BUN 33 mg/dL (4-19); BUN/Creat Ratio 38.2 RATIO (10-20); Carbon Dioxide 20.6 mmol/L (21.0-32.0); Chloride 103 mmol/L (98-108); Creatinine, Serum 0.86 mg/dL (0.70-1.20); EST Glomerular Filtration Rate 68 (>60); Globulin 3.4 g/dL (2.2-4.2); Glucose 177 mg/dL (70-99); Potassium 4.8 mmol/L (3.3-5.1); Protein, Total 7.5 g/dL (5.9-8.4); Sodium Level 138 mmol/L (133-145); Total Bilirubin 0.24 mg/dL (0.00-1.30)
== END | disposition home or self-care (01) ==
LOC: MTLAB 10:51
PROVIDERS: PCP Family Medicine; Referring Provider Internal Medicine Rheumatology; Visit Provider Internal Medicine Rheumatology
DX: M06.4 Inflammatory polyarthropathy (principal); M79.7 Fibromyalgia; M17.0 Bilateral primary osteoarthritis of knee; M18.0 Bilateral primary osteoarthritis of first carpometacarpal joints; Z79.899 Other long term (current) drug therapy
CPT/HCPCS: 36415; 80053; 85025

== ENCOUNTER → 2024-06-26 | Outpatient (CLI) | payer MEDICARE, OTHER, SELFPAY ==
[2024-06-26 17:47] LABS: Basophil# 0.05 X10^3/uL; Basophil% 0.5 % (0-1); Eosinophil# 0.15 X10^3/uL; Eosinophils% 1.4 % (0-5); Hematocrit 34.9 % (37-47); Hemoglobin 11.1 g/dL (12.0-15.0); Lymphocyte % 33.1 % (19-41); Mean Corp Hgb Conc 31.8 g/dL (32-36); Mean Corpuscular Hgb 29.4 pg (27.0-32.0); Mean Corpuscular Volume 92.3 fL (81-99); Mean Platelet Vol. 11.2 fl (6.2-12.0); Monocyte# 0.81 X10^3/uL; Monocyte% 7.7 % (0-10); NRBC Flagged by Analyzer 0 % (0-5); Neutrophil # 6.02 X10^3/uL (2.7-7.7); Neutrophil % 56.9 % (47-70); Platelet Count 274 K/mm3 (150-450); RBC Distribution Width CV 13.2 % (11.6-14.6); RBC Distribution Width SD 44.6 fl (35.1-43.9); Red Blood Count 3.78 M/mm3 (4.2-5.4); White Blood Count 10.6 K/mm3 (4.4-11.0)
[2024-06-26 18:06] LABS: ALB/GLOB Ratio 1.3 RATIO (0.9-2.4); AST(SGOT) 24 U/L (<=31); Alanine Aminotransfer ALT/SGPT 18 U/L (<=34); Alkaline Phosphatase 92 U/L (35-104); Anion Gap 13 (5-15); BUN 39 mg/dL (4-19); BUN/Creat Ratio 38.5 RATIO (10-20); Calcium,Total 9.4 mg/dL (7.6-11.0); Carbon Dioxide 25.9 mmol/L (21.0-32.0); Chloride 98 mmol/L (98-108); Creatinine, Serum 1.01 mg/dL (0.70-1.20); EST Glomerular Filtration Rate 56 (>60); Glucose 170 mg/dL (70-99); Potassium 3.5 mmol/L (3.3-5.1); Sodium Level 137 mmol/L (133-145); Total Bilirubin 0.24 mg/dL (0.00-1.30)
== END | disposition home or self-care (01) ==
PROVIDERS: PCP Family Medicine; Visit Provider Family Medicine
DX: I10 Essential (primary) hypertension (principal); R42 Dizziness and giddiness; R35.0 Frequency of micturition
CPT/HCPCS: 36415; 80053; 85025; 87086

== ENCOUNTER → 2024-08-12 | Outpatient (CLI) | payer MEDICARE, OTHER, SELFPAY ==
[2024-08-12 12:18] LABS: Absolute Lymphocyte Count 3.35 X10^3/uL (0.83-4.51); Absolute Neutrophil Count 4.1 X10^3/uL (2.0-7.7); Basophil# 0.04 X10^3/uL; Basophil% 0.5 % (0-1); Eosinophil# 0.14 X10^3/uL; Eosinophils% 1.6 % (0-5); Hematocrit 33.5 % (37-47); Hemoglobin 10.6 g/dL (12.0-15.0); Lymphocyte # 3.35 X10^3/ul (0.83-4.51); Lymphocyte % 39.4 % (19-41); Mean Corp Hgb Conc 31.6 g/dL (32-36); Mean Corpuscular Hgb 28.5 pg (27.0-32.0); Mean Corpuscular Volume 90.1 fL (81-99); Mean Platelet Vol. 11.1 fl (6.2-12.0); Monocyte# 0.84 X10^3/uL; Monocyte% 9.9 % (0-10); NRBC Flagged by Analyzer 0 % (0-5); Neutrophil % 48.1 % (47-70); Platelet Count 209 K/mm3 (150-450); RBC Distribution Width CV 15.7 % (11.6-14.6); RBC Distribution Width SD 51.3 fl (35.1-43.9); Red Blood Count 3.72 M/mm3 (4.2-5.4); White Blood Count 8.5 K/mm3 (4.4-11.0)
[2024-08-12 12:50] LABS: ALB/GLOB Ratio 1.4 RATIO (0.9-2.4); AST(SGOT) 17 U/L (<=31); Alanine Aminotransfer ALT/SGPT 12 U/L (<=34); Alkaline Phosphatase 62 U/L (35-104); Anion Gap 13 (5-15); BUN 30 mg/dL (4-19); BUN/Creat Ratio 24.7 RATIO (10-20); Calcium,Total 8.9 mg/dL (7.6-11.0); Chloride 106 mmol/L (98-108); EST Glomerular Filtration Rate 45 (>60); Globulin 2.8 g/dL (2.2-4.2); Glucose 139 mg/dL (70-99); Potassium 4.1 mmol/L (3.3-5.1); Protein, Total 6.8 g/dL (5.9-8.4); Sodium Level 141 mmol/L (133-145); Total Bilirubin 0.34 mg/dL (0.00-1.30)
== END | disposition home or self-care (01) ==
LOC: MTLAB 08:57
PROVIDERS: PCP Family Medicine; Referring Provider Internal Medicine Rheumatology; Visit Provider Internal Medicine Rheumatology
DX: M06.4 Inflammatory polyarthropathy (principal); M79.7 Fibromyalgia; Z79.899 Other long term (current) drug therapy
CPT/HCPCS: 36415; 80053; 85025

== ENCOUNTER → 2024-08-28 | Outpatient (CLI) | payer MEDICARE, OTHER, SELFPAY | END | disposition home or self-care (01) | LOC: LAB 15:41 → LABSPEC 15:42 | PROVIDERS: PCP Family Medicine; Referring Provider Urology; Visit Provider Urology | DX: N32.81 Overactive bladder (principal); R39.9 Unspecified symptoms and signs involving the genitourinary system | CPT/HCPCS: 87077; 87086; 87088 ==

== ENCOUNTER → 2024-10-01 | Outpatient (CLI) | payer MEDICARE, OTHER, SELFPAY ==
[2024-10-01 15:49] LABS: AST(SGOT) 21 U/L (<=31); Alanine Aminotransfer ALT/SGPT 15 U/L (<=34); Albumin, Serum 4.3 g/dL (3.4-4.8); Alkaline Phosphatase 56 U/L (35-104); Anion Gap 12 (5-15); BUN 35 mg/dL (4-19); BUN/Creat Ratio 28.7 RATIO (10-20); Calcium,Total 9.7 mg/dL (7.6-11.0); Carbon Dioxide 19.3 mmol/L (21.0-32.0); Chloride 110 mmol/L (98-108); Globulin 2.8 g/dL (2.2-4.2); Glucose 94 mg/dL (70-99); Potassium 5.0 mmol/L (3.3-5.1)
== END | disposition home or self-care (01) ==
LOC: MTLAB 11:49
PROVIDERS: PCP Family Medicine; Referring Provider Internal Medicine Rheumatology; Visit Provider Internal Medicine Rheumatology
DX: M06.4 Inflammatory polyarthropathy (principal); M79.7 Fibromyalgia; Z79.899 Other long term (current) drug therapy
CPT/HCPCS: 36415; 80053

== ENCOUNTER → 2024-10-21 | Outpatient (CLI) | payer MEDICARE, OTHER, SELFPAY ==
[2024-10-21 18:24] LABS: Hematocrit 32.1 % (37-47); Hemoglobin 10.0 g/dL (12.0-15.0); Immature Granulocytes Count 0.060 X10^3/uL (0.0-0.0); Mean Corp Hgb Conc 31.2 g/dL (32-36); Mean Corpuscular Volume 93.3 fL (81-99); Mean Platelet Vol. 10.7 fl (6.2-12.0); NRBC Flagged by Analyzer 0 % (0-5); Platelet Count 301 K/mm3 (150-450); RBC Distribution Width CV 16.7 % (11.6-14.6); RBC Distribution Width SD 56.2 fl (35.1-43.9); Red Blood Count 3.44 M/mm3 (4.2-5.4); White Blood Count 11.9 K/mm3 (4.4-11.0)
[2024-10-21 18:57] LABS: AST(SGOT) 14 U/L (<=31); Alanine Aminotransfer ALT/SGPT 17 U/L (<=34); Albumin, Serum 3.7 g/dL (3.4-4.8); Alkaline Phosphatase 79 U/L (35-104); Anion Gap 13 (5-15); BUN 20 mg/dL (4-19); BUN/Creat Ratio 19.8 RATIO (10-20); Calcium,Total 9.3 mg/dL (7.6-11.0); Carbon Dioxide 21.8 mmol/L (21.0-32.0); Chloride 106 mmol/L (98-108); Globulin 3.1 g/dL (2.2-4.2); Glucose 139 mg/dL (70-99); Potassium 4.2 mmol/L (3.3-5.1)
[2024-10-21 19:18] LABS: CRP 9.11 mg/L (0.0-3.0); LDH 166 U/L (84-246)
== END | disposition home or self-care (01) ==
LOC: BFHLAB 13:47
PROVIDERS: PCP Family Medicine; Visit Provider Family Medicine
DX: L03.90 Cellulitis, unspecified (principal); R63.4 Abnormal weight loss; K92.1 Melena
CPT/HCPCS: 36415; 80053; 83615; 85025; 86140

== ENCOUNTER → 2024-11-04 | Outpatient (CLI) | payer MEDICARE, OTHER, SELFPAY ==
[2024-11-04 10:10] LABS: Hematocrit 34.6 % (37-47); Hemoglobin 10.8 g/dL (12.0-15.0); Immature Granulocytes Count 0.030 X10^3/uL (0.0-0.0); Mean Corp Hgb Conc 31.2 g/dL (32-36); Mean Corpuscular Volume 95.6 fL (81-99); Mean Platelet Vol. 11.1 fl (6.2-12.0); NRBC Flagged by Analyzer 0 % (0-5); Platelet Count 214 K/mm3 (150-450); RBC Distribution Width CV 15.6 % (11.6-14.6); RBC Distribution Width SD 54.4 fl (35.1-43.9); Red Blood Count 3.62 M/mm3 (4.2-5.4); White Blood Count 8.5 K/mm3 (4.4-11.0)
[2024-11-04 10:49] LABS: AST(SGOT) 20 U/L (<=31); Alanine Aminotransfer ALT/SGPT 13 U/L (<=34); Albumin, Serum 3.8 g/dL (3.4-4.8); Alkaline Phosphatase 70 U/L (35-104); Anion Gap 13 (5-15); BUN 20 mg/dL (4-19); BUN/Creat Ratio 18.5 RATIO (10-20); Calcium,Total 9.3 mg/dL (7.6-11.0); Carbon Dioxide 22.0 mmol/L (21.0-32.0); Chloride 106 mmol/L (98-108); Globulin 3.4 g/dL (2.2-4.2); Glucose 99 mg/dL (70-99); Potassium 4.9 mmol/L (3.3-5.1)
== END | disposition home or self-care (01) ==
LOC: MTLAB 08:50
PROVIDERS: PCP Family Medicine; Referring Provider Internal Medicine Rheumatology; Visit Provider Internal Medicine Rheumatology
DX: M06.4 Inflammatory polyarthropathy (principal); M79.7 Fibromyalgia; Z79.899 Other long term (current) drug therapy
CPT/HCPCS: 36415; 80053; 85025

== ENCOUNTER → 2024-11-07 | Outpatient (CLI) | payer MEDICARE, OTHER, SELFPAY ==
--- NOTE | 2024-11-07 12:37 | CT_ITS ---
PROCEDURE: ABDOMEN/PELVIS WITH CONTRAST 11/07/2024 REASON FOR EXAM: RUQ PAIN TECHNIQUE: ABDOMEN/PELVIS WITH CONTRAST Coronal and Sagittal reconstruction series were provided. CONTRAST: Isovue 370 VOLUME: 87 mL One or more dose reduction techniques were used (e.g., Automated exposure control, adjustment of the mA and/or kV according to patient size, use of iterative reconstruction technique. RADIATION DOSE SUMMARY: CTDlvol: 17.74 mGy DLP: 941.75 mGycm COMPARISON: None FINDINGS: Lung bases: Clear. Liver: Unremarkable. Gallbladder: Status post cholecystectomy. Spleen: Unremarkable. Pancreas: Fatty infiltration of the liver. No focal pancreatic lesion. Adrenals: Unremarkable. Kidneys: Perinephric fat stranding. No solid masses. No nephrolithiasis. No hydronephrosis. Bladder: Unremarkable. Reproductive Organs: Unremarkable. Bowel: No bowel obstruction. No bowel wall thickening. Appendix: No evidence of acute appendicitis. The patient is likely status post appendectomy. Lymph nodes: No lymphadenopathy. Vasculature: No aneurysm. Atherosclerotic calcifications. Peritoneum / Retroperitoneum: No free air or free fluid. Bones: No acute bony abnormalities. CT/Abdomen/Pelvis WITH Contrast IMPRESSION: Perinephric fat stranding which can be seen with urinary tract infection. No h ydronephrosis. No nephrolithiasis. Otherwise, no acute abdominopelvic abnormalities. Reading Location: [facility] [place]
== END | disposition home or self-care (01) ==
LOC: CT 12:36
PROVIDERS: PCP Family Medicine; Referring Provider Family Medicine; Visit Provider Family Medicine
DX: R10.811 Right upper quadrant abdominal tenderness (principal); R63.4 Abnormal weight loss
CPT/HCPCS: 74177; Q9967

== ENCOUNTER → 2025-03-18 | Outpatient (CLI) | payer MEDICARE, OTHER, SELFPAY ==
[2025-03-18 11:57] LABS: Hematocrit 34.0 % (37-47); Hemoglobin 11.4 g/dL (12.0-15.0); Immature Granulocytes Count 0.070 X10^3/uL (0.0-0.0); Mean Corp Hgb Conc 33.5 g/dL (32-36); Mean Corpuscular Volume 87.4 fL (81-99); Mean Platelet Vol. 10.6 fl (6.2-12.0); NRBC Flagged by Analyzer 0 % (0-5); Platelet Count 233 K/mm3 (150-450); RBC Distribution Width CV 14.3 % (11.6-14.6); RBC Distribution Width SD 45.3 fl (35.1-43.9); Red Blood Count 3.89 M/mm3 (4.2-5.4); White Blood Count 11.0 K/mm3 (4.4-11.0)
[2025-03-18 12:16] LABS: AST(SGOT) 15 U/L (<=31); Alanine Aminotransfer ALT/SGPT 14 U/L (<=34); Albumin, Serum 4.1 g/dL (3.4-4.8); Alkaline Phosphatase 108 U/L (35-104); Anion Gap 12 (7-18); BUN 21 mg/dL (4-19); BUN/Creat Ratio 22.2 RATIO (10-20); Calcium,Total 9.4 mg/dL (7.6-11.0); Carbon Dioxide 23.7 mmol/L (20.0-29.0); Chloride 105 mmol/L (96-106); Globulin 3.1 g/dL (2.2-4.2); Glucose 170 mg/dL (70-99); Potassium 4.3 mmol/L (3.5-5.1)
== END | disposition home or self-care (01) ==
LOC: MTLAB 10:12
PROVIDERS: PCP Family Medicine; Referring Provider Internal Medicine Rheumatology; Visit Provider Internal Medicine Rheumatology
DX: M06.4 Inflammatory polyarthropathy (principal); M79.7 Fibromyalgia; Z79.899 Other long term (current) drug therapy
CPT/HCPCS: 36415; 80053; 85025